=== PATIENT | male | born 1980 | race Caucasian/White ===

== ENCOUNTER 2016-04-10 21:28 | Emergency (ER) | payer MEDICAID ==
[2016-04-10] MEDS ORDERED: Ketorolac 30 MG/ML SDV IVPUSH ONE (22:44)
[2016-04-10] MEDS ORDERED: Sodium Chloride 0.9% 1,000 ML IV ONE (22:44)
[2016-04-10] MEDS ORDERED: Ondansetron 4 MG/2 ML SDV IVPUSH ONE (22:44)
--- NOTE | 2016-04-10 23:38 | EDM.PDOC ---
ED HPI GENERAL MEDICAL PROBLEM - General Chief Complaint: Neuro Symptoms/Deficits Stated Complaint: PT HAS HIGH BLOOD PRESSURE Time Seen by Provider: 04/10/16 22:40 Source of Information: Reports: Patient History Limitations: Reports: No limitations - History of Present Illness INITIAL COMMENTS - FREE TEXT/NARRATIVE: History of present illness: [35-year-old male presenting with a myriad of complaints that run from concerns of hypertension, a stroke, and seizures. Patient's dialogue is tangential and diffuse. Patient hops from one systematic complaint to another unable to consistently stay with any sort of inquiry into symptoms. Later patient indicates that he was seen and treated for a stroke, but left AMA. Patient indicates that this treatment was received after he had seizures, hypertensive crisis with subsequent stroke-type symptoms will going through drug and alcohol withdrawal.] Review of systems: As per history of present illness and below otherwise all systems reviewed and negative. Past medical history: As per history of present illness and as reviewed below otherwise noncontributory. Surgical history: As per history of present illness and as reviewed below otherwise noncontributory. Social history: No reported history of drug or alcohol abuse. Family history: As per history of present illness and as reviewed below otherwise noncontributory. Physical exam: HEENT: Atraumatic, normocephalic, pupils reactive, negative for conjunctival pallor or scleral icterus, mucous membranes moist, throat clear, neck supple, nontender, trachea midline. Lungs: Clear to auscultation, breath sounds equal bilaterally, chest nontender. Heart: S1S2, regular, negative for clicks, rubs, or JVD. Abdomen: Soft, nondistended, nontender. Negative for masses or hepatosplenomegaly. Negative for costovertebral tenderness. Pelvis: Stable nontender. Genitourinary: Deferred. Rectal: Deferred. Extremities: Atraumatic, negative for cords or calf pain. Neurovascular unremarkable. Neuro: Awake, alert, oriented to person and place. Cranial nerves II through XII unremarkable. Unable to participate in good neurological exam. Diagnostics: [CBC, CMP, EtOH, urine drug screen] Therapeutics: [IV fluid, Toradol] Impression: [Muscle pain /Chronic psych disorder-personality disorder spectrum] Plan: [Discharge] Definitive disposition and diagnosis as appropriate pending reevaluation and review of above. - Related Data Allergies Allergy/AdvReac Type Severity Reaction Status Date / Time Penicillins Allergy Hives Verified 04/10/16 22:26 Home Meds: Home Meds . [No Known Home Meds] 05/21/15 [History] Past Medical History - Past Health History Medical/Surgical History: Denies Medical/Surgical History HEENT History: Reports: Other (see below) Other HEENT History: teeth missing, broken Cardiovascular History: Reports: High cholesterol, Hypertension Respiratory History: Reports: Asthma, Other (see below) Other Respiratory History: nodes on lungs Musculoskeletal History: Reports: Fracture Neurological History: Reports: CVA Other Neuro History: Stroke last week Psychiatric History: Reports: Anxiety, Bipolar Endocrine/Metabolic History: Reports: Diabetes, type II Dermatologic History: Reports: Cellulitis - Infectious Disease History Infectious Disease History: Reports: None - Past Surgical History Musculoskeletal Surgical History: Reports: Other (see below) Other Musculoskeletal Surgeries/Procedures:: leg surgery, bilateral knee surgery Social & Family History - Family History Family Medical History: Noncontributory - Tobacco Use Smoking Status *Q: Current Every Day Smoker Years of Tobacco use: 24 Packs/Tins Daily: 0.3 Second Hand Smoke Exposure: Yes - Caffeine Use Caffeine Use: Reports: Coffee Caffeine Use Comment: 8-10cups/day - Alcohol Use Days Per Week of Alcohol Use: 7 Number of Drinks Per Day: 18 Total Drinks Per Week: 126 - Recreational Drug Use Recreational Drug Use: No Drug Use in Last 12 Months: Yes Recreational Drug Type: Reports: Methamphetamine Recreational Drug Use Frequency: Not Used In Over 6 Months ED ROS GENERAL - Review of Systems Review Of Systems: See Below (See history of present illness) ED EXAM, GENERAL - Physical Exam Exam: See Below (See history of present illness) Course - Vital Signs Last Recorded V/S: Last Vital Signs Temp 36.4 C 04/10/16 22:27 Pulse 92 04/10/16 22:27 Resp 18 04/10/16 22:27 BP 151/82 H 04/10/16 22:27 Pulse Ox 97 04/10/16 22:27 - Orders/Labs/Meds Labs: Laboratory Tests 04/10/16 04/10/16 04/10/16 Range/Units 23:30 23:50 23:50 WBC 10.43 (4.0-11.0) K/uL RBC 4.70 (4.50-5.90) M/uL Hgb 14.0 (13.0-17.0) g/dL Hct 42.1 (38.0-50.0) % MCV 89.6 (80.0-98.0) fL MCH 29.8 (27.0-32.0) pg MCHC 33.3 (31.0-37.0) g/dL RDW Std Deviation 44.5 (28.0-62.0) fl RDW Coeff of Felix 14 (11.0-15.0) % Plt Count 314 (150-400) K/uL MPV 9.20 (7.40-12.00) fL Neut % (Auto) 69.1 (48.0-80.0) % Lymph % (Auto) 18.5 (16.0-40.0) % Mcintosh % (Auto) 8.1 (0.0-15.0) % Eos % (Auto) 3.8 (0.0-7.0) % Baso % (Auto) 0.5 (0.0-1.5) % Neut # 7.2 H (1.4-5.7) K/uL Lymph # 1.9 (0.6-2.4) K/uL Mcintosh # 0.8 (0.0-0.8) K/uL Eos # 0.4 (0.0-0.7) K/uL Baso # 0.1 (0.0-0.1) K/uL Nucleated RBC % 0.0 /100WBC Nucleated RBCs # 0 K/uL Sodium 139 (136-146) mmol/L Potassium 3.9 (3.5-5.1) mmol/L Chloride 103 (98-110) mmol/L Carbon Dioxide 25 (21-31) mmol/L BUN 12 (6.0-23.0) mg/dL Creatinine 0.8 (0.6-1.5) mg/dL Est Cr Clr Drug Dosing 117.41 mL/min Estimated GFR (MDRD) > 60.0 ml/min Glucose 88 (60-110) mg/dL Calcium 9.3 (8.8-10.8) mg/dL Total Bilirubin 0.3 (0.1-1.5) mg/dL AST 20 (5-40) IU/L ALT 21 (8-54) IU/L Alkaline Phosphatase 72 (40-150) Total Protein 7.5 (6.0-8.0) g/dL Albumin 4.5 (3.5-5.0) g/dL Globulin 3.0 (2.0-3.5) g/dL Albumin/Globulin Ratio 1.5 (1.3-2.8) Urine Opiates Screen NEGATIVE (NEGATIVE) Ur Oxycodone Screen NEGATIVE (NEGATIVE) Urine Methadone Screen NEGATIVE (NEGATIVE) Ur Barbiturates Screen NEGATIVE (NEGATIVE) Ur Phencyclidine Scrn NEGATIVE (NEGATIVE) Ur Amphetamine Screen NEGATIVE (NEGATIVE) U Methamphetamines Scrn NEGATIVE (NEGATIVE) U Benzodiazepines Scrn NEGATIVE (NEGATIVE) U Cocaine Metab Screen NEGATIVE (NEGATIVE) U Marijuana (THC) Screen NEGATIVE (NEGATIVE) Ethyl Alcohol < 10.0 mg/dL Meds: Medications Discontinued Medications Generic Name Dose Route Start Last Admin Trade Name Freq PRN Reason Stop Dose Admin Sodium Chloride 1,000 mls @ 999 mls/hr 04/10/16 22:44 04/10/16 23:47 Normal Saline IV 04/10/16 23:44 999 mls/hr STAT ONE Administration Ketorolac Tromethamine 30 mg 04/10/16 22:44 04/10/16 23:49 Toradol IVPUSH 04/10/16 22:45 30 mg ONETIME ONE Administration Ondansetron HCl 8 mg 04/10/16 22:44 04/10/16 23:48 Zofran IVPUSH 04/10/16 22:45 8 mg ONETIME ONE Administration Departure - Departure Time of Disposition: 00:20 Disposition: Home, Self-Care 01 Condition: good Clinical Impression: Muscle weakness Referrals: PCP,None [Primary Care Provider] - Forms: ED Department Discharge Additional Instructions: The following information is given to patients seen in the emergency department who are being discharged to home. This information is to outline your options for follow-up care. We provide all patients seen in our emergency department with a follow-up referral. The need for follow-up, as well as the timing and circumstances, are variable depending upon the specifics of your emergency department visit. If you don't have a primary care physician on staff, we will provide you with a referral. We always advise you to contact your personal physician following an emergency department visit to inform them of the circumstance of the visit and for follow-up with them and/or the need for any referrals to a consulting specialist. The emergency department will also refer you to a specialist when appropriate. This referral assures that you have the opportunity for follow-up care with a specialist. All of these measure are taken in an effort to provide you with optimal care, which includes your follow-up. Under all circumstances we always encourage you to contact your private physician who remains a resource for coordinating your care. When calling for follow-up care, please make the office aware that this follow-up is from your recent emergency room visit. If for any reason you are refused follow-up, please contact the [facility] Emergency Department at and asked to speak to the emergency department charge nurse. Follow up with primary care provider in one to 2 today Return to ED as needed as discussed
[2016-04-11 00:32] LABS: CHLORIDE,CL 103 mmol/L (98-110); SODIUM,NA 139 mmol/L (136-146)
[2016-04-11 01:40] VITALS: BP 117/74
== END 2016-04-11 01:05 | disposition home or self-care (01) ==
LOC: MW.ED 21:28
DX: R53.1 Weakness (principal); E11.9 Type 2 diabetes mellitus without complications; F17.210 Nicotine dependence, cigarettes, uncomplicated
CPT/HCPCS: 36415; 80053; 85025; 93005; 96361; 96374; 96375; 99283; G0478; G0480; J1885; J2405; J7040; 80305; 99284

== ENCOUNTER 2016-04-11 13:37 | Emergency (ER) | payer MEDICAID ==
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
[2016-04-11] MEDS ORDERED: Nicotine 21 MG/24 Hr Patch TRDERM ONE (16:53)
[2016-04-11 18:44] VITALS: BP 131/78
== END 2016-04-11 18:30 ==
LOC: MW.ED 13:37
DX: R45.851 Suicidal ideations (principal); E78.00 Pure hypercholesterolemia, unspecified; I10 Essential (primary) hypertension; E11.9 Type 2 diabetes mellitus without complications; F17.210 Nicotine dependence, cigarettes, uncomplicated; Z88.0 Allergy status to penicillin
CPT/HCPCS: 83735; 84443; 84482; 99285; A9270; G0478; G0480; 36415; 80305

== ENCOUNTER 2016-05-16 20:13 | Emergency (ER) | payer MEDICAID ==
--- NOTE | 2016-05-16 20:43 | EDM.PDOC ---
ED HPI GENERAL MEDICAL PROBLEM - General Chief Complaint: Behavioral/Psych Stated Complaint: SUICIDAL Time Seen by Provider: 05/16/16 20:26 - History of Present Illness INITIAL COMMENTS - FREE TEXT/NARRATIVE: HISTORY AND PHYSICAL: History of present illness: Patient 35 remote history of bipolar disorder presents with a chief complaint of suicidal ideation even off his medications for several days he is cooperative and eager for admission further evaluation and treatment is agreed transfer Review of systems: As per history of present illness and below otherwise all systems reviewed and negative. Past medical history: As per history of present illness and as reviewed below otherwise noncontributory. Surgical history: As per history of present illness and as reviewed below otherwise noncontributory. Social history: No reported history of drug or alcohol abuse. Family history: As per history of present illness and as reviewed below otherwise noncontributory. Physical exam: HEENT: Atraumatic, normocephalic, pupils reactive, negative for conjunctival pallor or scleral icterus, mucous membranes moist, throat clear, neck supple, nontender, trachea midline. Lungs: Clear to auscultation, breath sounds equal bilaterally, chest nontender. Heart: S1S2, regular, negative for clicks, rubs, or JVD. Abdomen: Soft, nondistended, nontender. Negative for masses or hepatosplenomegaly. Negative for costovertebral tenderness. Pelvis: Stable nontender. Genitourinary: Deferred. Rectal: Deferred. Extremities: Atraumatic, negative for cords or calf pain. Neurovascular unremarkable. Neuro: Awake, alert, oriented. Cranial nerves II through XII unremarkable. Cerebellum unremarkable. Motor and sensory unremarkable throughout. Exam nonfocal. Diagnostics: CBC CMP urine drug screen aspirin Tylenol level EtOH EKG Therapeutics: None Impression: #1 history of bipolar disorder #2 depressive episode with suicidal ideation Definitive disposition and diagnosis as appropriate pending reevaluation and review of above. - Related Data Allergies Allergy/AdvReac Type Severity Reaction Status Date / Time Penicillins Allergy Hives Verified 04/11/16 13:54 Home Meds: Home Meds risperiDONE [Risperidone] 1 mg PO DAILY 05/16/16 [History] Past Medical History - Past Health History Medical/Surgical History: Denies Medical/Surgical History HEENT History: Reports: Other (see below) Other HEENT History: teeth missing, broken Cardiovascular History: Reports: High cholesterol, Hypertension Respiratory History: Reports: Asthma, Other (see below) Other Respiratory History: nodes on lungs Musculoskeletal History: Reports: Fracture Neurological History: Reports: CVA Other Neuro History: Stroke last week Psychiatric History: Reports: Anxiety, Bipolar Endocrine/Metabolic History: Reports: Diabetes, type II Dermatologic History: Reports: Cellulitis - Infectious Disease History Infectious Disease History: Reports: None - Past Surgical History Musculoskeletal Surgical History: Reports: Other (see below) Other Musculoskeletal Surgeries/Procedures:: leg surgery, bilateral knee surgery Social & Family History - Family History Family Medical History: Noncontributory - Tobacco Use Smoking Status *Q: Current Every Day Smoker Years of Tobacco use: 15 Packs/Tins Daily: 1 Second Hand Smoke Exposure: Yes - Caffeine Use Caffeine Use: Reports: Coffee Caffeine Use Comment: 8-10cups/day - Alcohol Use Days Per Week of Alcohol Use: 7 Number of Drinks Per Day: 18 Total Drinks Per Week: 126 - Recreational Drug Use Recreational Drug Use: Yes Drug Use in Last 12 Months: Yes Recreational Drug Type: Reports: Marijuana/Hashish Recreational Drug Use Frequency: Daily ED ROS GENERAL - Review of Systems Review Of Systems: ROS reveals no pertinent complaints other than HPI. ED EXAM, GENERAL - Physical Exam Exam: See Below Course - Vital Signs Last Recorded V/S: Last Vital Signs Temp 36.6 C 05/16/16 20:35 Pulse 84 05/16/16 20:35 Resp 18 05/16/16 20:35 BP 144/87 H 05/16/16 20:35 Pulse Ox 97 05/16/16 20:35 - Orders/Labs/Meds Orders: Active Orders 24 hr Category Date Time Status EKG Documentation Completion [RC] STAT Care 05/16/16 20:28 Active ACETAMINOPHEN [CHEM] Stat Lab 05/16/16 20:28 Ordered CBC WITH AUTO DIFF [HEME] Stat Lab 05/16/16 20:28 Ordered COMPREHENSIVE METABOLIC PN,CMP [CHEM] Stat Lab 05/16/16 20:28 Ordered DRUG SCREEN, URINE [URCHEM] Stat Lab 05/16/16 20:28 Uncollected ETHANOL BLOOD MEDICAL [CHEM] Stat Lab 05/16/16 20:28 Ordered SALICYLATE [CHEM] Stat Lab 05/16/16 20:28 Ordered Departure - Departure Time of Disposition: 20:42 Disposition: DC/Tfer to Psych Hosp/Unit 65 Condition: good Clinical Impression: Depressive disorder Forms: ED Department Discharge - My Orders Last 24 Hours: My Active Orders 05/16/16 20:28 EKG Documentation Completion [RC] STAT ACETAMINOPHEN [CHEM] Stat CBC WITH AUTO DIFF [HEME] Stat COMPREHENSIVE METABOLIC PN,CMP [CHEM] Stat DRUG SCREEN, URINE [URCHEM] Stat ETHANOL BLOOD MEDICAL [CHEM] Stat SALICYLATE [CHEM] Stat - Assessment/Plan Last 24 Hours: My Active Orders 05/16/16 20:28 EKG Documentation Completion [RC] STAT ACETAMINOPHEN [CHEM] Stat CBC WITH AUTO DIFF [HEME] Stat COMPREHENSIVE METABOLIC PN,CMP [CHEM] Stat DRUG SCREEN, URINE [URCHEM] Stat ETHANOL BLOOD MEDICAL [CHEM] Stat SALICYLATE [CHEM] Stat
[2016-05-16 21:04] LABS: CHLORIDE,CL 101 mmol/L (98-110); SODIUM,NA 137 mmol/L (136-146)
[2016-05-16 21:12] LABS: ACETAMINOPHEN < 3.0 ug/mL
[2016-05-16 21:33] VITALS: BP 139/90
== END 2016-05-16 21:56 ==
LOC: MW.ED 20:13
DX: F32.9 Major depressive disorder, single episode, unspecified (principal); F17.210 Nicotine dependence, cigarettes, uncomplicated; I10 Essential (primary) hypertension; E78.00 Pure hypercholesterolemia, unspecified; E11.9 Type 2 diabetes mellitus without complications; F41.9 Anxiety disorder, unspecified; J45.909 Unspecified asthma, uncomplicated; Z98.890 Other specified postprocedural states; Z86.73 Personal history of transient ischemic attack (TIA), and cerebral infarction without residual deficits; Z88.0 Allergy status to penicillin; Z79.899 Other long term (current) drug therapy
CPT/HCPCS: 36415; 80053; 80305; 85025; 93005; 99285; G0480; 99283

== ENCOUNTER 2016-09-10 15:14 | Emergency (ER) | payer MEDICAID ==
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
[2016-09-10 16:36] VITALS: BP 149/96
[2016-09-10 16:58] LABS: CHLORIDE,CL 95 mmol/L (98-110); SODIUM,NA 132 mmol/L (136-146)
[2016-09-10 17:25] LABS: ACETAMINOPHEN < 3.0 ug/mL
== END 2016-09-10 16:33 ==
LOC: MW.ED 15:14
DX: R45.851 Suicidal ideations (principal); E78.00 Pure hypercholesterolemia, unspecified; I10 Essential (primary) hypertension; J45.909 Unspecified asthma, uncomplicated; E11.9 Type 2 diabetes mellitus without complications; F17.210 Nicotine dependence, cigarettes, uncomplicated; Z88.0 Allergy status to penicillin; Z86.73 Personal history of transient ischemic attack (TIA), and cerebral infarction without residual deficits
CPT/HCPCS: 80053; 83735; 84443; 84481; 85025; 93005; 99285; G0480; 36415

== ENCOUNTER 2017-01-16 22:10 | Emergency (ER) | payer SELFPAY ==
[2017-01-16 22:20] VITALS: BP 147/103
--- NOTE | 2017-01-16 22:43 | EDM.PDOC ---
ED HPI GENERAL MEDICAL PROBLEM - General Chief Complaint: Gastrointestinal Problem Stated Complaint: UNK Time Seen by Provider: 01/16/17 22:30 - History of Present Illness INITIAL COMMENTS - FREE TEXT/NARRATIVE: HISTORY AND PHYSICAL: History of present illness: The patient is a 36-year-old male who has a long-standing history of alcohol use and abuse and presents with complaints of a 2-3 month history of vomiting 3 times a day with blood. The patient drinks alcohol on a daily basis and drink about a liter and a half today and says that usually the vomiting occurs when he drinks alcohol. He admits that he eats a lot of spicy foods and drinks caffeinated products but has no issues with eating food and the food does not cause him to vomit or have any pain. He denies any abdominal pain with the vomiting. He has no chest pain or shortness of breath and has had normal bowel movements which are not loose or diarrhea and they are not black or bloody. The patient has intermittently tried some [id number] medications but not on a consistent basis and has not had lightheadedness dizziness or fainting episodes. He has no extremity weakness. When I asked him about alcohol rehabilitation and his interest in pursuing that as an outpatient he is somewhat reticent and states that he is not interested at this time. Patient does not wake up in the middle the night or have vomiting first thing in the morning. He again reiterates that he mostly has the vomiting with the blood when he is drinking alcohol. He is here mostly at the insistence of family members were concerned about him and he just wants to make sure that he is "not going to ". Patient is never had endoscopy or any surgical procedures. The patient tells nursing he does have a history of hypertension and his elevated blood pressure today is not new or different neuro is concerned about it Review of systems: As per history of present illness and below otherwise all systems reviewed and negative. Past medical history: As per history of present illness and as reviewed below otherwise noncontributory. Surgical history: As per history of present illness and as reviewed below otherwise noncontributory. Social history: No reported history of drug or alcohol abuse. Family history: As per history of present illness and as reviewed below otherwise noncontributory. Physical exam: Gen.: Well-developed well-nourished man who is nontoxic and speaking clearly and easily in the ED. Vital signs of been reviewed by me. Patient moves easily in the ED without any distress HEENT: Atraumatic, normocephalic, pupils reactive, sclera is injected negative for conjunctival pallor or scleral icterus, mucous membranes moist, throat clear , neck supple, nontender, trachea midline. Lungs: Clear to auscultation, breath sounds equal bilaterally, chest nontender. Heart: S1S2, regular rhythm and slightly tachycardic rate on my evaluation and no overt murmurs Abdomen: Soft, nondistended, nontender. There is actually no tenderness rebound or guarding on palpation nor is there any tympany on percussion. Negative for masses or hepatosplenomegaly. Negative for costovertebral tenderness. Pelvis: Stable nontender. Genitourinary: Deferred. Rectal: Deferred. Extremities: Atraumatic, negative for cords or calf pain. Neurovascular unremarkable. Neuro: Awake, alert, oriented. Cranial nerves II through XII unremarkable. Cerebellum unremarkable. Motor and sensory unremarkable throughout. Exam nonfocal. The patient is not tremulous Diagnostics: CBC CMP amylase lipase INR orthostatic vitals Therapeutics: Patient was offered IV IV fluids Protonix and declines that at this time so he will be given oral Protonix and Zofran 2307: It is noted by nursing and registration the patient had eloped from the ER. We'll continue to monitor the lab tests that were ordered and contact him if they reveal any abnormalities. Impression: Hematemesis with alcohol use, history of alcohol use and abuse; patient absconded from the ER Definitive disposition and diagnosis as appropriate pending reevaluation and review of above. - Related Data Allergies Allergy/AdvReac Type Severity Reaction Status Date / Time Penicillins Allergy Hives Verified 01/16/17 22:20 Home Meds: Home Meds . [No Known Home Meds] 09/10/16 [History] Past Medical History - Past Health History Medical/Surgical History: Denies Medical/Surgical History HEENT History: Reports: Other (See Below) Other HEENT History: teeth missing, broken Cardiovascular History: Reports: High Cholesterol, Hypertension Respiratory History: Reports: Asthma, Other (See Below) Other Respiratory History: nodes on lungs Gastrointestinal History: Reports: None Genitourinary History: Reports: None Musculoskeletal History: Reports: Fracture Neurological History: Reports: CVA Other Neuro History: Stroke Psychiatric History: Reports: Anxiety, Bipolar, Schizophrenia Endocrine/Metabolic History: Reports: Diabetes, Type II Dermatologic History: Reports: Cellulitis - Infectious Disease History Infectious Disease History: Reports: None - Past Surgical History Musculoskeletal Surgical History: Reports: Other (See Below) Social & Family History - Family History Family Medical History: Noncontributory - Tobacco Use Smoking Status *Q: Current Every Day Smoker Years of Tobacco use: 5 Packs/Tins Daily: 1 Second Hand Smoke Exposure: Yes - Caffeine Use Caffeine Use: Reports: Coffee Caffeine Use Comment: 8-10cups/day - Alcohol Use Days Per Week of Alcohol Use: 7 Number of Drinks Per Day: 18 Total Drinks Per Week: 126 - Recreational Drug Use Recreational Drug Use: No Drug Use in Last 12 Months: Yes Recreational Drug Type: Reports: Marijuana/Hashish Recreational Drug Use Frequency: Daily ED ROS GENERAL - Review of Systems Review Of Systems: ROS reveals no pertinent complaints other than HPI. ED EXAM, GENERAL - Physical Exam Exam: See Below (See dictation) Course - Vital Signs Last Recorded V/S: Last Vital Signs Temp 37.3 C 01/16/17 22:18 Pulse 114 H 01/16/17 22:18 Resp 20 01/16/17 22:18 BP 147/103 H 01/16/17 22:18 Pulse Ox 97 01/16/17 22:18 Orthostatic Blood Pressure [ 123/78 Standing] Orthostatic Blood Pressure [ 133/91 Supine] - Orders/Labs/Meds Orders: Active Orders 24 hr Category Date Time Status Orthostatic Vital Signs [RC] ASDIRECTED Care 01/16/17 22:39 Active Pantoprazole [ProTONIX] Med 01/17/17 22:38 Once 40 mg PO ONETIME ONE Medication Orders Pantoprazole Sodium (Protonix) 40 mg PO ONETIME ONE Stop: 01/17/17 22:39 Last Admin: 01/16/17 22:52 Dose: 40 mg Labs: Laboratory Tests 01/16/17 01/16/17 01/16/17 Range/Units 22:50 22:50 22:50 WBC 11.18 H (4.0-11.0) K/uL RBC 4.93 (4.50-5.90) M/uL Hgb 15.9 (13.0-17.0) g/dL Hct 45.1 (38.0-50.0) % MCV 91.5 (80.0-98.0) fL MCH 32.3 H (27.0-32.0) pg MCHC 35.3 (31.0-37.0) g/dL RDW Std Deviation 46.8 (28.0-62.0) fl RDW Coeff of Felix 14 (11.0-15.0) % Plt Count 288 (150-400) K/uL MPV 9.40 (7.40-12.00) fL Neut % (Auto) 65.4 (48.0-80.0) % Lymph % (Auto) 22.8 (16.0-40.0) % Davidson % (Auto) 8.5 (0.0-15.0) % Eos % (Auto) 2.8 (0.0-7.0) % Baso % (Auto) 0.5 (0.0-1.5) % Neut # (Auto) 7.3 H (1.4-5.7) K/uL Lymph # (Auto) 2.6 H (0.6-2.4) K/uL Davidson # (Auto) 1.0 H (0.0-0.8) K/uL Eos # (Auto) 0.3 (0.0-0.7) K/uL Baso # (Auto) 0.1 (0.0-0.1) K/uL Nucleated RBC % 0.0 /100WBC Nucleated RBCs # 0 K/uL INR 1.00 (0.86-1.11) Sodium 138 (136-146) mmol/L Potassium 3.6 (3.5-5.1) mmol/L Chloride 102 (98-110) mmol/L Carbon Dioxide 21 (21-31) mmol/L BUN 9 (6.0-23.0) mg/dL Creatinine 0.8 (0.6-1.5) mg/dL Est Cr Clr Drug Dosing 128.88 mL/min Estimated GFR (MDRD) > 60.0 ml/min Glucose 86 (60-110) mg/dL Calcium 9.6 (8.8-10.8) mg/dL Total Bilirubin 0.6 (0.1-1.5) mg/dL AST 65 H (5-40) IU/L ALT 33 (8-54) IU/L Alkaline Phosphatase 85 (40-150) Total Protein 8.2 H (6.0-8.0) g/dL Albumin 4.8 (3.5-5.0) g/dL Globulin 3.4 (2.0-3.5) g/dL Albumin/Globulin Ratio 1.4 (1.3-2.8) Amylase 19 (10-90) U/L Lipase 14 (7-80) U/L Meds: Medications Generic Name Dose Route Start Last Admin Trade Name Freq PRN Reason Stop Dose Admin Pantoprazole Sodium 40 mg 01/17/17 22:38 01/16/17 22:52 Protonix PO 01/17/17 22:39 40 mg ONETIME ONE Administration Discontinued Medications Generic Name Dose Route Start Last Admin Trade Name Freq PRN Reason Stop Dose Admin Ondansetron HCl 4 mg 01/16/17 22:44 01/16/17 22:51 Zofran Odt PO 01/16/17 22:45 4 mg ONETIME ONE Administration Pantoprazole Sodium Confirm 01/16/17 22:49 01/16/17 22:52 Protonix Administered 01/16/17 22:50 Not Given Dose 40 mg .ROUTE .STK-MED ONE Departure - Departure Time of Disposition: 23:30 Disposition: Eloped 07 Condition: Good Clinical Impression: Vomiting, Alcohol abuse - Discharge Information Referrals: PCP,None [Primary Care Provider] - Forms: ED Department Discharge Additional Instructions: Patient eloped from the ED prior to receiving his test results and any discharge instructions - My Orders Last 24 Hours: My Active Orders 01/16/17 22:39 Orthostatic Vital Signs [RC] ASDIRECTED 01/17/17 22:38 Pantoprazole [ProTONIX] 40 mg PO ONETIME ONE - Assessment/Plan Last 24 Hours: My Active Orders 01/16/17 22:39 Orthostatic Vital Signs [RC] ASDIRECTED 01/17/17 22:38 Pantoprazole [ProTONIX] 40 mg PO ONETIME ONE
[2017-01-16] MEDS ORDERED: Ondansetron 4 MG Tab.DIS PO ONE (22:44)
[2017-01-16] MEDS ORDERED: Pantoprazole 40 MG Tab.CR ONE (22:49)
[2017-01-16 23:18] LABS: CHLORIDE,CL 102 mmol/L (98-110); SODIUM,NA 138 mmol/L (136-146)
[2017-01-17] MEDS ORDERED: Pantoprazole 40 MG Tab.CR PO ONE (22:38)
== END 2017-01-16 23:10 | disposition left against medical advice (07) ==
LOC: MW.ED 22:10
DX: K92.0 Hematemesis (principal); F10.10 Alcohol abuse, uncomplicated; E11.9 Type 2 diabetes mellitus without complications; F17.210 Nicotine dependence, cigarettes, uncomplicated; I10 Essential (primary) hypertension; Z88.0 Allergy status to penicillin
CPT/HCPCS: 36415; 80053; 82150; 83690; 85025; 85610; 99284; A9270

== ENCOUNTER 2017-06-19 20:43 | Emergency (ER) | payer SELFPAY ==
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
[2017-06-19 21:20] VITALS: BP 124/76
== END 2017-06-19 21:14 | disposition home or self-care (01) ==
LOC: MW.ED 20:43
DX: Z71.1 Person with feared health complaint in whom no diagnosis is made (principal); E78.00 Pure hypercholesterolemia, unspecified; I10 Essential (primary) hypertension; J45.909 Unspecified asthma, uncomplicated; E11.9 Type 2 diabetes mellitus without complications; F31.9 Bipolar disorder, unspecified; F41.9 Anxiety disorder, unspecified; Z88.0 Allergy status to penicillin
CPT/HCPCS: 99282

== ENCOUNTER 2017-06-30 20:58 | Emergency (ER) | payer SELFPAY ==
[2017-06-30] MEDS ORDERED: Rocuronium 50 MG/5 ML Vial IV ONE (20:59)
[2017-06-30] MEDS ORDERED: Diphtheria,Pertussis(Acell),Tetanus Vaccine 0.5 ML Syringe IM ONE (20:59)
[2017-06-30] MEDS ORDERED: Sodium Chloride 0.9% 1,000 ML IV SCH (21:00)
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
[2017-06-30] MEDS ORDERED: methylPREDNISolone Sodium Succinate 125 MG/2 ML SDV IVPUSH ONE (21:08)
[2017-06-30 22:08] LABS: CHLORIDE,CL 103 mmol/L (98-107); SODIUM,NA 139 mmol/L (136-148)
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
[2017-07-01 05:56] VITALS: BP 159/97
[2017-07-01] MEDS ORDERED: Lactated Ringers 1,000 ML IV ONE (06:06)
[2017-07-01] MEDS ORDERED: Sodium Chloride 0.9% 1,000 ML IV ONE (06:06)
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
== END 2017-06-30 21:33 | disposition home or self-care (01) ==
LOC: MW.ED 20:58
DX: T20.06XA Burn of unspecified degree of forehead and cheek, initial encounter (principal); T26.00XA Burn of unspecified eyelid and periocular area, initial encounter; T20.04XA Burn of unspecified degree of nose (septum), initial encounter; J70.5 Respiratory conditions due to smoke inhalation; I10 Essential (primary) hypertension; E11.9 Type 2 diabetes mellitus without complications; Z88.0 Allergy status to penicillin; X00.0XXA Exposure to flames in uncontrolled fire in building or structure, initial encounter; Y92.009 Unspecified place in unspecified non-institutional (private) residence as the place of occurrence of the external cause
CPT/HCPCS: 36415; 51702; 71045; 72170; 80053; 81001; 82550; 82553; 84484; 85025; 96360; 96361; 96374; 99291; G0480; J2930; J7040; J7120

== ENCOUNTER 2017-10-01 21:01 | Emergency (ER) | payer MEDICAID, OTHER ==
[2017-10-01] MEDS ORDERED: Aspirin 81 MG Tab.Chew PO ONE (21:02)
[2017-10-01] MEDS ORDERED: Albuterol/Ipratropium 3.0-0.5 MG/3 ML Neb Soln NEB ONE (21:02)
[2017-10-01] MEDS ORDERED: Sodium Chloride 0.9% 1,000 ML IV ONE (21:02)
--- NOTE | 2017-10-01 21:09 | EDM.PDOC ---
ED HPI GENERAL MEDICAL PROBLEM - General Chief Complaint: Cardiovascular Problem Stated Complaint: CAME BY AMBULANCE Time Seen by Provider: 10/01/17 21:03 Source of Information: Reports: Patient History Limitations: Reports: No Limitations - History of Present Illness INITIAL COMMENTS - FREE TEXT/NARRATIVE: HISTORY AND PHYSICAL: History of present illness: Patient is a 37 year old male who presents to the emergency room with complaints of midsternal chest pain and palpitations. He reports that he chronically does have chest pain, "it's been going on forever". He has drank 12 energy drinks throughout the day and "felt like I was going to " due to the palpitations. Patient does have a history of hypertension and reports he is supposed to be taking medication for this but currently is not. Denies any drug abuse. Reports he does use alcohol frequently and is a daily smoker. He denies any fever, chills, cough, diaphoresis. Denies any visual changes, headache, near syncope or syncope. Denies any abdominal pain, nausea, vomiting, diarrhea or constipation. Review of systems: As per history of present illness and below otherwise all systems reviewed and negative. Past medical history: As per history of present illness and as reviewed below otherwise noncontributory. Surgical history: As per history of present illness and as reviewed below otherwise noncontributory. Social history: No reported history of drug or alcohol abuse. Family history: As per history of present illness and as reviewed below otherwise noncontributory. Physical exam: General: Well-developed and well-nourished 35-year-old male. Alert and oriented. Nontoxic appearing, anxious, but appears in no acute distress. HEENT: Atraumatic, normocephalic, pupils equal and reactive bilaterally, negative for conjunctival pallor or scleral icterus, bilateral scleral injection , mucous membranes moist, throat clear, neck supple, nontender, trachea midline. No drooling or trismus noted. No meningeal signs Lungs: Fine expiratory wheezing noted to the anterior upper lung franco bilaterally, breath sounds equal bilaterally, chest nontender. Heart: S1S2, regular rate and rhythm without overt murmur Abdomen: Soft, nondistended, nontender. Negative for masses or hepatosplenomegaly. Negative for costovertebral tenderness. Pelvis: Stable nontender. Genitourinary: Deferred. Rectal: Deferred. Skin: Intact, warm, dry. No lesions or rashes noted. Extremities: Atraumatic, moves all per self, negative for cords or calf pain. Neurovascular unremarkable. Neuro: Awake, alert, oriented. Cranial nerves II through XII unremarkable. Cerebellum unremarkable. Motor and sensory unremarkable throughout. Exam nonfocal. Notes: States he normally drinks around 12 energy drinks daily; but today he wasn't able to drink much water while at work. Reports he has had multiple strokes in the past. No neurological deficits or weakness. NIH= 0. Labs were reviewed with the patient. He was offered admission. Patient states he would like to be discharged to home. We discussed avoiding caffeinated and stimulants. He states he wants to go home "so I can go get my beer". Denies any further questions or concerns. Diagnostics: CBC, CMP, troponin, EKG, one view chest, UA, urine drug screen Therapeutics: IV fluid, aspirin, DuoNeb Impression: Acute on chronic chest pain Plan: 1. Avoid caffeinated products (coffee, energy drinks, teas, etc...) 2. Increase your water intake. 3. Follow up with your primary care provider. Return to the ED as needed and as discussed. Definitive disposition and diagnosis as appropriate pending reevaluation and review of above. Duration: Hour(s):, Chronic Location: Reports: Chest chest area Pain Score (Numeric/FACES): 10 - Related Data Allergies Allergy/AdvReac Type Severity Reaction Status Date / Time Penicillins Allergy Hives Verified 10/01/17 21:04 Home Meds: Home Meds . [No Known Home Meds] 09/10/16 [History] QUEtiapine Fumarate [Seroquel] 50 mg PO QPM 10/01/17 [History] QUEtiapine [SEROquel] 100 mg PO QAM 10/01/17 [History] Past Medical History - Past Health History Medical/Surgical History: Denies Medical/Surgical History HEENT History: Reports: Other (See Below) Other HEENT History: teeth missing, broken Cardiovascular History: Reports: High Cholesterol, Hypertension Respiratory History: Reports: Asthma, Other (See Below) Other Respiratory History: nodes on lungs Gastrointestinal History: Reports: None Genitourinary History: Reports: None Musculoskeletal History: Reports: Fracture Neurological History: Reports: CVA Other Neuro History: Stroke last week Psychiatric History: Reports: Anxiety, Bipolar Endocrine/Metabolic History: Reports: Diabetes, Type II Hematologic History: Reports: None Immunologic History: Reports: None Oncologic (Cancer) History: Reports: None Dermatologic History: Reports: Cellulitis - Infectious Disease History Infectious Disease History: Reports: None - Past Surgical History Musculoskeletal Surgical History: Reports: Other (See Below) Social & Family History - Family History Family Medical History: Noncontributory - Caffeine Use Caffeine Use: Reports: Coffee Caffeine Use Comment: 8-10cups/day ED ROS GENERAL - Review of Systems Review Of Systems: ROS reveals no pertinent complaints other than HPI. ED EXAM, GENERAL - Physical Exam Exam: See Below (See dictation) Course - Vital Signs Last Recorded V/S: Last Vital Signs Temp 97.5 F 10/01/17 21:05 Pulse 114 H 10/01/17 21:05 Resp 24 H 10/01/17 21:05 BP 158/107 H 10/01/17 21:05 Pulse Ox 96 10/01/17 21:05 - Orders/Labs/Meds Orders: Active Orders 24 hr Category Date Time Status EKG Documentation Completion [RC] STAT Care 10/01/17 21:02 Active RT Aerosol Therapy [RC] ASDIRECTED Care 10/01/17 21:03 Active Chest 1V Frontal [CR] Stat Exams 10/01/17 21:02 Taken DRUG SCREEN, URINE [URCHEM] Stat Lab 10/01/17 21:02 Ordered UA W/MICROSCOPIC [URIN] Stat Lab 10/01/17 21:20 Ordered Labs: Laboratory Tests 10/01/17 10/01/17 10/01/17 Range/Units 21:02 21:09 21:09 WBC 10.35 (4.0-11.0) K/uL RBC 4.99 (4.50-5.90) M/uL Hgb 16.1 (13.0-17.0) g/dL Hct 46.5 (38.0-50.0) % MCV 93.2 (80.0-98.0) fL MCH 32.3 H (27.0-32.0) pg MCHC 34.6 (31.0-37.0) g/dL RDW Std Deviation 47.8 (28.0-62.0) fl RDW Coeff of Felix 14 (11.0-15.0) % Plt Count 264 (150-400) K/uL MPV 9.10 (7.40-12.00) fL Neut % (Auto) 72.2 (48.0-80.0) % Lymph % (Auto) 14.5 L (16.0-40.0) % Dundy % (Auto) 12.7 (0.0-15.0) % Eos % (Auto) 0.2 (0.0-7.0) % Baso % (Auto) 0.4 (0.0-1.5) % Neut # (Auto) 7.5 H (1.4-5.7) K/uL Lymph # (Auto) 1.5 (0.6-2.4) K/uL Dundy # (Auto) 1.3 H (0.0-0.8) K/uL Eos # (Auto) 0.0 (0.0-0.7) K/uL Baso # (Auto) 0.0 (0.0-0.1) K/uL Nucleated RBC % 0.0 /100WBC Nucleated RBCs # 0 K/uL Sodium 133 L (136-148) mmol/L Potassium 3.9 (3.5-5.1) mmol/L Chloride 96 L (98-107) mmol/L Carbon Dioxide 23.7 (21.0-32.0) mmol/L BUN 16 (7.0-18.0) mg/dL Creatinine 0.9 (0.8-1.3) mg/dL Est Cr Clr Drug Dosing 113.47 mL/min Estimated GFR (MDRD) > 60.0 ml/min Glucose 84 (74-106) mg/dL Calcium 9.7 (8.5-10.1) mg/dL Total Bilirubin 0.9 (0.2-1.0) mg/dL AST 34 (15-37) IU/L ALT 27 (14-63) IU/L Alkaline Phosphatase 76 (46-116) U/L Troponin I < 0.050 (0.000-0.056) ng/mL Total Protein 7.6 (6.4-8.2) g/dL Albumin 4.3 (3.4-5.0) g/dL Globulin 3.3 (2.0-3.5) g/dL Albumin/Globulin Ratio 1.3 (1.3-2.8) Urine Color Urine Appearance Urine pH (5.0-8.0) Ur Specific Thorndike (1.001-1.035) Urine Protein (NEGATIVE) mg/dL Urine Glucose (UA) (NEGATIVE) mg/dL Urine Ketones (NEGATIVE) mg/dL Urine Occult Blood (NEGATIVE) Urine Nitrite (NEGATIVE) Urine Bilirubin (NEGATIVE) Urine Urobilinogen (<2.0) EU/dL Ur Leukocyte Esterase (NEGATIVE) Urine RBC (0-2/HPF) Urine WBC (0-5/HPF) Ur Epithelial Cells (NONE-FEW) Urine Bacteria (NEGATIVE) Urine Mucus (NONE-MOD) Urine Opiates Screen NEGATIVE (NEGATIVE) Ur Oxycodone Screen NEGATIVE (NEGATIVE) Urine Methadone Screen NEGATIVE (NEGATIVE) Ur Barbiturates Screen NEGATIVE (NEGATIVE) Ur Phencyclidine Scrn NEGATIVE (NEGATIVE) Ur Amphetamine Screen POSITIVE (NEGATIVE) U Methamphetamines Scrn NEGATIVE (NEGATIVE) U Benzodiazepines Scrn NEGATIVE (NEGATIVE) U Cocaine Metab Screen NEGATIVE (NEGATIVE) U Marijuana (THC) Screen NEGATIVE (NEGATIVE) 10/01/17 Range/Units 21:20 WBC (4.0-11.0) K/uL RBC (4.50-5.90) M/uL Hgb (13.0-17.0) g/dL Hct (38.0-50.0) % MCV (80.0-98.0) fL MCH (27.0-32.0) pg MCHC (31.0-37.0) g/dL RDW Std Deviation (28.0-62.0) fl RDW Coeff of Felix (11.0-15.0) % Plt Count (150-400) K/uL MPV (7.40-12.00) fL Neut % (Auto) (48.0-80.0) % Lymph % (Auto) (16.0-40.0) % Dundy % (Auto) (0.0-15.0) % Eos % (Auto) (0.0-7.0) % Baso % (Auto) (0.0-1.5) % Neut # (Auto) (1.4-5.7) K/uL Lymph # (Auto) (0.6-2.4) K/uL Dundy # (Auto) (0.0-0.8) K/uL Eos # (Auto) (0.0-0.7) K/uL Baso # (Auto) (0.0-0.1) K/uL Nucleated RBC % /100WBC Nucleated RBCs # K/uL Sodium (136-148) mmol/L Potassium (3.5-5.1) mmol/L Chloride (98-107) mmol/L Carbon Dioxide (21.0-32.0) mmol/L BUN (7.0-18.0) mg/dL Creatinine (0.8-1.3) mg/dL Est Cr Clr Drug Dosing mL/min Estimated GFR (MDRD) ml/min Glucose (74-106) mg/dL Calcium (8.5-10.1) mg/dL Total Bilirubin (0.2-1.0) mg/dL AST (15-37) IU/L ALT (14-63) IU/L Alkaline Phosphatase (46-116) U/L Troponin I (0.000-0.056) ng/mL Total Protein (6.4-8.2) g/dL Albumin (3.4-5.0) g/dL Globulin (2.0-3.5) g/dL Albumin/Globulin Ratio (1.3-2.8) Urine Color YELLOW Urine Appearance CLEAR Urine pH 6.0 (5.0-8.0) Ur Specific Thorndike 1.010 (1.001-1.035) Urine Protein NEGATIVE (NEGATIVE) mg/dL Urine Glucose (UA) NEGATIVE (NEGATIVE) mg/dL Urine Ketones 15 H (NEGATIVE) mg/dL Urine Occult Blood NEGATIVE (NEGATIVE) Urine Nitrite NEGATIVE (NEGATIVE) Urine Bilirubin NEGATIVE (NEGATIVE) Urine Urobilinogen 0.2 (<2.0) EU/dL Ur Leukocyte Esterase TRACE (NEGATIVE) Urine RBC 0-1 (0-2/HPF) Urine WBC 3-8 (0-5/HPF) Ur Epithelial Cells RARE (NONE-FEW) Urine Bacteria FEW (NEGATIVE) Urine Mucus FEW (NONE-MOD) Urine Opiates Screen (NEGATIVE) Ur Oxycodone Screen (NEGATIVE) Urine Methadone Screen (NEGATIVE) Ur Barbiturates Screen (NEGATIVE) Ur Phencyclidine Scrn (NEGATIVE) Ur Amphetamine Screen (NEGATIVE) U Methamphetamines Scrn (NEGATIVE) U Benzodiazepines Scrn (NEGATIVE) U Cocaine Metab Screen (NEGATIVE) U Marijuana (THC) Screen (NEGATIVE) Meds: Medications Discontinued Medications Generic Name Dose Route Start Last Admin Trade Name Bradly PRN Reason Stop Dose Admin Albuterol/Ipratropium 3 ml 10/01/17 21:02 10/01/17 21:12 Duoneb 3.0-0.5 Mg/3 Ml NEB 10/01/17 21:03 3 ml ONETIME ONE Administration Aspirin 324 mg 10/01/17 21:02 10/01/17 21:24 Aspirin PO 10/01/17 21:03 324 mg ONETIME ONE Administration Sodium Chloride 1,000 mls @ 999 mls/hr 10/01/17 21:02 10/01/17 21:24 Normal Saline IV 10/01/17 22:02 999 mls/hr STAT ONE Administration Departure - Departure Time of Disposition: 22:03 Disposition: Home, Self-Care 01 Clinical Impression: Chest pain Qualifiers: Chest pain type: unspecified Qualified Code(s): R07.9 - Chest pain, unspecified Forms: ED Department Discharge Additional Instructions: General dischargeThe following information is given to patients seen in the emergency department who are being discharged to home. This information is to outline your options for follow-up care. We provide all patients seen in our emergency department with a follow-up referral. The need for follow-up, as well as the timing and circumstances, are variable depending upon the specifics of your emergency department visit. If you don't have a primary care physician on staff, we will provide you with a referral. We always advise you to contact your personal physician following an emergency department visit to inform them of the circumstance of the visit and for follow-up with them and/or the need for any referrals to a consulting specialist. The emergency department will also refer you to a specialist when appropriate. This referral assures that you have the opportunity for follow-up care with a specialist. All of these measure are taken in an effort to provide you with optimal care, which includes your follow-up. Under all circumstances we always encourage you to contact your private physician who remains a resource for coordinating your care. When calling for follow-up care, please make the office aware that this follow-up is from your recent emergency room visit. If for any reason you are refused follow-up, please contact the [facility] Emergency Department at and asked to speak to the emergency department charge nurse. [facility] [address] [place] [id number] 1. Avoid caffeinated products (coffee, energy drinks, teas, etc...) 2. Increase your water intake. 3. Follow up with your primary care provider. Return to the ED as needed and as discussed. . - My Orders Last 24 Hours: My Active Orders 10/01/17 21:02 EKG Documentation Completion [RC] STAT Chest 1V Frontal [CR] Stat DRUG SCREEN, URINE [URCHEM] Stat 10/01/17 21:03 RT Aerosol Therapy [RC] ASDIRECTED 10/01/17 21:20 UA W/MICROSCOPIC [URIN] Stat - Assessment/Plan Last 24 Hours: My Active Orders 10/01/17 21:02 EKG Documentation Completion [RC] STAT Chest 1V Frontal [CR] Stat DRUG SCREEN, URINE [URCHEM] Stat 10/01/17 21:03 RT Aerosol Therapy [RC] ASDIRECTED 10/01/17 21:20 UA W/MICROSCOPIC [URIN] Stat
[2017-10-01 21:26] VITALS: BP 158/107
[2017-10-01 21:37] LABS: CHLORIDE,CL 96 mmol/L (98-107); SODIUM,NA 133 mmol/L (136-148)
--- NOTE | 2017-10-02 10:11 | CR ---
EXAM DATE: 10/01/17 PATIENT'S AGE: 37 Patient: RANDY PARK Facility: [place], [place] Site . Site : 1980 Study: XRay Chest [id number] 9:38:49 PM Ordering Physician: Doctor Blanchard Final Report: Indication: Chest pain Technique: Chest 1 view Comparison: June 30, 2017 Findings/Impression: Cardiovascular and mediastinum: Heart size and vasculature are normal in caliber and appearance. Mediastinum is within normal limits. Lungs and pleural space: Lungs are clear. No sign of infiltrate or mass. No sign of pleural effusion. No pneumothorax. Bones and soft tissues: No significant findings. Dictated by Keila Galaviz MD @ Oct 01 2017 10:03PM (Electronic Signature) Report Signed by Proxy. MURTAZA
== END 2017-10-01 22:12 | disposition home or self-care (01) ==
LOC: MW.ED 21:01
DX: R07.9 Chest pain, unspecified (principal); I10 Essential (primary) hypertension; E11.9 Type 2 diabetes mellitus without complications; Z88.0 Allergy status to penicillin
CPT/HCPCS: 36415; 71045; 80053; 80305; 81001; 84484; 85025; 93005; 94640; 96360; 99285; A9270; J7040; 99283; J7620-GY

== ENCOUNTER 2017-11-17 20:08 | Emergency (ER) | payer SELFPAY ==
--- NOTE | 2017-11-17 20:34 | EDM.PDOCBH ---
ED HPI GENERAL MEDICAL PROBLEM - General Chief Complaint: Behavioral/Psych Stated Complaint: DEPRESION Time Seen by Provider: 11/17/17 20:30 Source of Information: Reports: Patient History Limitations: Reports: No Limitations - History of Present Illness INITIAL COMMENTS - FREE TEXT/NARRATIVE: HISTORY AND PHYSICAL: History of present illness: Patient is a 37-year-old male with history of depression, bipolar disorder, and schizophrenia here with suicidal thoughts. He states he has had these thoughts for "a while." He has a history of previous suicidal attempts including hanging , cutting, and jumping in front of a truck. At this time, patient denies having a plan. Although patient did tell my nursing staff that he had been at the bar this afternoon and after having a few beers walk to the train station where he was planning to jump in front of the train when the lady had stopped him and advised him to come to the ER. Patient states he is willing to seek help for his illness and agreeable to be transferred. Patient denies any illicit drug use and denies taking any OTC medications today. Patient reported to me that he is taking his seroquel but told Review of systems: As per history of present illness and below otherwise all systems reviewed and negative. Past medical history: As per history of present illness and as reviewed below otherwise noncontributory. Surgical history: As per history of present illness and as reviewed below otherwise noncontributory. Social history: No reported history of drug or alcohol abuse. Family history: As per history of present illness and as reviewed below otherwise noncontributory. Physical exam: General: Patient figiditing and not making eye contact but in no acute distress and nontoxic appearing HEENT: Atraumatic, normocephalic, pupils reactive, negative for conjunctival pallor or scleral icterus, mucous membranes moist, throat clear, neck supple, nontender, trachea midline. No meningeal signs. Lungs: Apical wheezing bilaterally, breath sounds equal bilaterally, chest nontender. Heart: S1S2, regular, negative for clicks, rubs, or overt murmur. Abdomen: Soft, nondistended, nontender. Negative for masses or hepatosplenomegaly. Negative for costovertebral tenderness. Pelvis: Stable nontender. Genitourinary: Deferred. Rectal: Deferred. Extremities: Atraumatic, negative for cords or calf pain. Neurovascular unremarkable. Neuro: Awake, alert, oriented. Cranial nerves II through XII unremarkable. Cerebellum unremarkable. Motor and sensory unremarkable throughout. Exam nonfocal. Notes: Diagnostics: CBC, CMP, TSH, Mg2+, UA, UDS Therapeutics: None Prescriptions: Impression: Suicidal ideation with plan Plan: Discussed with Dr. Rojas at [facility], patient will be transferred for inpatient care. Definitive disposition and diagnosis as appropriate pending reevaluation and review of above. - Related Data Allergies Allergy/AdvReac Type Severity Reaction Status Date / Time Penicillins Allergy Hives Verified 11/17/17 20:24 Home Meds: Home Meds QUEtiapine Fumarate [Seroquel] 50 mg PO QPM 10/01/17 [History] QUEtiapine [SEROquel] 100 mg PO QAM 10/01/17 [History] Past Medical History - Past Health History Medical/Surgical History: Denies Medical/Surgical History HEENT History: Reports: Other (See Below) Other HEENT History: teeth missing, broken Cardiovascular History: Reports: High Cholesterol, Hypertension Respiratory History: Reports: Asthma, Other (See Below) Other Respiratory History: nodes on lungs Gastrointestinal History: Reports: None Genitourinary History: Reports: None Musculoskeletal History: Reports: Fracture Neurological History: Reports: CVA Other Neuro History: Stroke last week Psychiatric History: Reports: Anxiety, Bipolar Endocrine/Metabolic History: Reports: Diabetes, Type II Hematologic History: Reports: None Immunologic History: Reports: None Oncologic (Cancer) History: Reports: None Dermatologic History: Reports: Cellulitis - Infectious Disease History Infectious Disease History: Reports: None - Past Surgical History Musculoskeletal Surgical History: Reports: Other (See Below) Social & Family History - Family History Family Medical History: Noncontributory - Caffeine Use Caffeine Use: Reports: Coffee Caffeine Use Comment: 8-10cups/day ED ROS GENERAL - Review of Systems Review Of Systems: ROS reveals no pertinent complaints other than HPI. ED EXAM, BEHAVIORAL HEALTH - Physical Exam Exam: See Below (see dictation) COURSE, BEHAVIORAL HEALTH COMP - Course Vital Signs: Last Vital Signs Temp 37.2 C 11/17/17 20:26 Pulse 111 H 11/17/17 20:26 Resp 18 11/17/17 20:26 BP 138/96 H 11/17/17 20:26 Pulse Ox 96 11/17/17 20:26 Orders, Labs, Meds: Active Orders 24 hr Category Date Time Status EKG Documentation Completion [RC] STAT Care 11/17/17 20:31 Active COMPREHENSIVE METABOLIC PN,CMP [CHEM] Stat Lab 11/17/17 20:37 Received DRUG SCREEN, URINE [URCHEM] Stat Lab 11/17/17 20:31 Ordered ETHANOL BLOOD MEDICAL [CHEM] Stat Lab 11/17/17 20:37 Received MAGNESIUM [CHEM] Stat Lab 11/17/17 20:37 Received TSH [CHEM] Stat Lab 11/17/17 20:37 Received UA W/MICROSCOPIC [URIN] Stat Lab 11/17/17 20:31 Ordered Sodium Chloride 0.9% [Saline Flush] Med 11/17/17 20:38 Active 10 ml FLUSH ASDIRECTED PRN Sodium Chloride 0.9% [Saline Flush] Med 11/17/17 20:38 Active 2.5 ml FLUSH ASDIRECTED PRN Saline Lock Insert [OM.PC] Stat Oth 11/17/17 20:38 Ordered Medication Orders Sodium Chloride (Saline Flush) 10 ml FLUSH ASDIRECTED PRN PRN Reason: Keep Vein Open Sodium Chloride (Saline Flush) 2.5 ml FLUSH ASDIRECTED PRN PRN Reason: Keep Vein Open Laboratory Tests 11/17/17 Range/Units 20:37 WBC 8.51 (4.0-11.0) K/uL RBC 4.77 (4.50-5.90) M/uL Hgb 15.2 (13.0-17.0) g/dL Hct 43.3 (38.0-50.0) % MCV 90.8 (80.0-98.0) fL MCH 31.9 (27.0-32.0) pg MCHC 35.1 (31.0-37.0) g/dL RDW Std Deviation 45.7 (28.0-62.0) fl RDW Coeff of Felix 14 (11.0-15.0) % Plt Count 305 (150-400) K/uL MPV 9.60 (7.40-12.00) fL Neut % (Auto) 66.3 (48.0-80.0) % Lymph % (Auto) 24.7 (16.0-40.0) % Trigg % (Auto) 6.7 (0.0-15.0) % Eos % (Auto) 1.8 (0.0-7.0) % Baso % (Auto) 0.5 (0.0-1.5) % Neut # (Auto) 5.7 (1.4-5.7) K/uL Lymph # (Auto) 2.1 (0.6-2.4) K/uL Trigg # (Auto) 0.6 (0.0-0.8) K/uL Eos # (Auto) 0.2 (0.0-0.7) K/uL Baso # (Auto) 0.0 (0.0-0.1) K/uL Nucleated RBC % 0.0 /100WBC Nucleated RBCs # 0 K/uL Medications Generic Name Dose Route Start Last Admin Trade Name Freq PRN Reason Stop Dose Admin Sodium Chloride 10 ml 11/17/17 20:38 Saline Flush FLUSH ASDIRECTED PRN Keep Vein Open Sodium Chloride 2.5 ml 11/17/17 20:38 Saline Flush FLUSH ASDIRECTED PRN Keep Vein Open Departure - Departure Time of Disposition: 21:15 Disposition: DC/Tfer to Psych Hosp/Unit [facility] Condition: Good Clinical Impression: Suicidal intent - Discharge Information Referrals: PCP,None [Primary Care Provider] - Forms: ED Department Discharge - My Orders Last 24 Hours: My Active Orders 11/17/17 20:31 EKG Documentation Completion [RC] STAT DRUG SCREEN, URINE [URCHEM] Stat UA W/MICROSCOPIC [URIN] Stat 11/17/17 20:37 COMPREHENSIVE METABOLIC PN,CMP [CHEM] Stat ETHANOL BLOOD MEDICAL [CHEM] Stat MAGNESIUM [CHEM] Stat TSH [CHEM] Stat 11/17/17 20:38 Sodium Chloride 0.9% [Saline Flush] 10 ml FLUSH ASDIRECTED PRN Sodium Chloride 0.9% [Saline Flush] 2.5 ml FLUSH ASDIRECTED PRN Saline Lock Insert [OM.PC] Stat - Assessment/Plan Last 24 Hours: My Active Orders 11/17/17 20:31 EKG Documentation Completion [RC] STAT DRUG SCREEN, URINE [URCHEM] Stat UA W/MICROSCOPIC [URIN] Stat 11/17/17 20:37 COMPREHENSIVE METABOLIC PN,CMP [CHEM] Stat ETHANOL BLOOD MEDICAL [CHEM] Stat MAGNESIUM [CHEM] Stat TSH [CHEM] Stat 11/17/17 20:38 Sodium Chloride 0.9% [Saline Flush] 10 ml FLUSH ASDIRECTED PRN Sodium Chloride 0.9% [Saline Flush] 2.5 ml FLUSH ASDIRECTED PRN Saline Lock Insert [OM.PC] Stat
[2017-11-17] MEDS ORDERED: Sodium Chloride 0.9% 10 ML Syringe FLUSH PRN (20:38)
[2017-11-17] MEDS ORDERED: Sodium Chloride 0.9% 2.5 ML Syringe FLUSH PRN (20:38)
[2017-11-17 21:12] LABS: CHLORIDE,CL 94 mmol/L (98-107); SODIUM,NA 132 mmol/L (136-148)
[2017-11-17 21:20] VITALS: BP 130/78
== END 2017-11-17 22:20 ==
LOC: MW.ED 20:08
DX: R45.851 Suicidal ideations (principal); I10 Essential (primary) hypertension; E11.9 Type 2 diabetes mellitus without complications; Z88.0 Allergy status to penicillin
CPT/HCPCS: 36415; 80053; 83735; 84443; 85025; 93005; 99285; G0480; 99283

== ENCOUNTER 2018-04-07 11:19 | Emergency (ER) | payer MEDICAID ==
--- NOTE | 2018-04-07 12:02 | EDM.PDOC ---
ED HPI GENERAL MEDICAL PROBLEM - General Chief Complaint: ENT Problem Stated Complaint: SORE THROAT Time Seen by Provider: 04/07/18 11:45 Source of Information: Reports: Patient History Limitations: Reports: No Limitations - History of Present Illness INITIAL COMMENTS - FREE TEXT/NARRATIVE: HISTORY AND PHYSICAL: History of present illness: Patient is a 37-year-old male well known to the ED with complaint of sore throat x 2 weeks. He reports ear pain, nasal congestion, subjective fevers, mild cough. Denies nausea, vomiting, diarrhea, chest pain, SOB, difficulty swallowing or breathing. He is taking OTC theraflu for his symptoms. Review of systems: As per history of present illness and below otherwise all systems reviewed and negative. Past medical history: As per history of present illness and as reviewed below otherwise noncontributory. Surgical history: As per history of present illness and as reviewed below otherwise noncontributory. Social history: No reported history of drug or alcohol abuse. Family history: As per history of present illness and as reviewed below otherwise noncontributory. Physical exam: General: Patient sitting comfortably in no acute distress and nontoxic appearing HEENT: Oropharynx is erythematous without exudate. Tonsils not visualized. Maxillary sinus tenderness to palpation. TMs clear bilaterally. Atraumatic, normocephalic, pupils reactive, negative for conjunctival pallor or scleral icterus, mucous membranes moist, throat clear, neck supple, nontender, trachea midline. No meningeal signs. Lungs: Clear to auscultation, breath sounds equal bilaterally, chest nontender. Heart: S1S2, regular, negative for clicks, rubs, or overt murmur. Abdomen: Soft, nondistended, nontender. Negative for masses or hepatosplenomegaly. Negative for costovertebral tenderness. Pelvis: Stable nontender. Genitourinary: Deferred. Rectal: Deferred. Extremities: Atraumatic, negative for cords or calf pain. Neurovascular unremarkable. Neuro: Awake, alert, oriented. Cranial nerves II through XII unremarkable. Cerebellum unremarkable. Motor and sensory unremarkable throughout. Exam nonfocal. Notes: Diagnostics: Rapid strep Therapeutics: None Prescriptions: Augmentin Impression: Sinusitis Plan: 1. Take antibiotic as instructed 2. Follow up with primary care provider 3. Return to ED as needed as discussed Definitive disposition and diagnosis as appropriate pending reevaluation and review of above. throat Pain Score (Numeric/FACES): 10 - Related Data Allergies Allergy/AdvReac Type Severity Reaction Status Date / Time Penicillins Allergy Hives Verified 01/20/18 15:05 Home Meds: Home Meds . [No Known Home Meds] 01/20/18 [History] Past Medical History - Past Health History Medical/Surgical History: Denies Medical/Surgical History HEENT History: Reports: Other (See Below) Other HEENT History: teeth missing, broken Cardiovascular History: Reports: High Cholesterol, Hypertension Respiratory History: Reports: Asthma, Other (See Below) Other Respiratory History: nodes on lungs Gastrointestinal History: Reports: None Genitourinary History: Reports: None Musculoskeletal History: Reports: Fracture Neurological History: Reports: CVA Other Neuro History: Stroke last week Psychiatric History: Reports: Anxiety, Bipolar Endocrine/Metabolic History: Reports: Diabetes, Type II Hematologic History: Reports: None Immunologic History: Reports: None Oncologic (Cancer) History: Reports: None Dermatologic History: Reports: Cellulitis - Infectious Disease History Infectious Disease History: Reports: None - Past Surgical History Head Surgeries/Procedures: Reports: None Musculoskeletal Surgical History: Reports: Other (See Below) Social & Family History - Family History Family Medical History: Noncontributory - Tobacco Use Smoking Status *Q: Current Every Day Smoker Years of Tobacco use: 26 Packs/Tins Daily: 0.5 - Caffeine Use Caffeine Use: Reports: Coffee Caffeine Use Comment: 8-10cups/day - Recreational Drug Use Recreational Drug Use: No ED ROS ENT - Review of Systems Review Of Systems: ROS reveals no pertinent complaints other than HPI. ED EXAM, ENT - Physical Exam Exam: See Below (see dictation) Course - Vital Signs Last Recorded V/S: Last Vital Signs Temp 97.5 F 04/07/18 11:31 Pulse 100 04/07/18 11:31 Resp 18 04/07/18 11:31 BP 145/100 H 04/07/18 11:31 Pulse Ox 95 04/07/18 11:31 - Orders/Labs/Meds Orders: Active Orders 24 hr Category Date Time Status CULTURE STREP A CONFIRMATION [RM] Stat Lab 04/07/18 11:42 Results STREP SCRN A RAPID W CULT CONF [RM] Stat Lab 04/07/18 11:42 Results Departure - Departure Time of Disposition: 12:06 Disposition: Home, Self-Care 01 Condition: Good Clinical Impression: Sinusitis - Discharge Information Referrals: PCP,None [Primary Care Provider] - Forms: ED Department Discharge Additional Instructions: The following information is given to patients seen in the emergency department who are being discharged to home. This information is to outline your options for follow-up care. We provide all patients seen in our emergency department with a follow-up referral. The need for follow-up, as well as the timing and circumstances, are variable depending upon the specifics of your emergency department visit. If you don't have a primary care physician on staff, we will provide you with a referral. We always advise you to contact your personal physician following an emergency department visit to inform them of the circumstance of the visit and for follow-up with them and/or the need for any referrals to a consulting specialist. The emergency department will also refer you to a specialist when appropriate. This referral assures that you have the opportunity for follow-up care with a specialist. All of these measure are taken in an effort to provide you with optimal care, which includes your follow-up. Under all circumstances we always encourage you to contact your private physician who remains a resource for coordinating your care. When calling for follow-up care, please make the office aware that this follow-up is from your recent emergency room visit. If for any reason you are refused follow-up, please contact the [facility] Emergency Department at and asked to speak to the emergency department charge nurse. [facility] [address] [place] [id number] [address] 1. Take antibiotic as instructed 2. Follow up with primary care provider 3. Return to ED as needed as discussed - My Orders Last 24 Hours: My Active Orders 04/07/18 11:42 CULTURE STREP A CONFIRMATION [RM] Stat STREP SCRN A RAPID W CULT CONF [RM] Stat - Assessment/Plan Last 24 Hours: My Active Orders 04/07/18 11:42 CULTURE STREP A CONFIRMATION [RM] Stat STREP SCRN A RAPID W CULT CONF [RM] Stat
[2018-04-07 12:33] VITALS: BP 149/96
== END 2018-04-07 12:33 | disposition home or self-care (01) ==
LOC: MW.ED 11:19
DX: J32.9 Chronic sinusitis, unspecified (principal); I10 Essential (primary) hypertension; E11.9 Type 2 diabetes mellitus without complications; E78.00 Pure hypercholesterolemia, unspecified; Z88.0 Allergy status to penicillin; F17.210 Nicotine dependence, cigarettes, uncomplicated
CPT/HCPCS: 87081; 87880-QW; 99283

== ENCOUNTER 2018-04-28 15:45 | Emergency (ER) | payer MEDICAID ==
[2018-04-28] MEDS ORDERED: Ketorolac 60 MG/2 ML SDV IM ONE (16:00)
[2018-04-28 16:02] VITALS: BP 148/101
--- NOTE | 2018-04-28 16:06 | EDM.PDOC ---
ED HPI GENERAL MEDICAL PROBLEM - General Chief Complaint: Skin Complaint Stated Complaint: BLOOD CLOT Time Seen by Provider: 04/28/18 15:47 Source of Information: Reports: Patient History Limitations: Reports: No Limitations - History of Present Illness INITIAL COMMENTS - FREE TEXT/NARRATIVE: HISTORY AND PHYSICAL: History of present illness: Patient is a 37 year old male who presents to the emergency room today with complaints of pain to the right mid thigh. He states he has been breaking wooden boards across his leg over the past month and has had pain. He was told by a friend that he should be concerned of having a blood clot deficits painful there. He denies any fever, chills, chest pain, shortness of breath or cough. Denies any abdominal pain, nausea, vomiting, diarrhea, constipation or dysuria. He has been eating and drinking appropriately. Review of systems: As per history of present illness and below otherwise all systems reviewed and negative. Past medical history: As per history of present illness and as reviewed below otherwise noncontributory. Surgical history: As per history of present illness and as reviewed below otherwise noncontributory. Social history: See social history for further information Family history: As per history of present illness and as reviewed below otherwise noncontributory. Physical exam: General: Well-developed and well-nourished 37-year-old male. Alert and oriented. Nontoxic appearing and in no acute distress. HEENT: Atraumatic, normocephalic, pupils equal and reactive bilaterally, negative for conjunctival pallor or scleral icterus, mucous membranes moist, poor dental hygiene, continuously grinds his teeth, trachea midline. No drooling or trismus noted. No meningeal signs. No hot potato voice noted. Lungs: Clear to auscultation, breath sounds equal bilaterally, chest nontender. Heart: S1S2, regular rate and rhythm without overt murmur Abdomen: Soft, nondistended, nontender. Negative for masses or hepatosplenomegaly. Negative for costovertebral tenderness. Pelvis: Stable nontender. Genitourinary: Deferred. Rectal: Deferred. Skin: Intact, warm, dry. No lesions or rashes noted. Extremities: Moves all extremities per self without difficulty or deficits, no tenderness with palpation over the femur, no soft tissue swelling or erythema noted, negative for cords or calf pain. Neurovascular unremarkable. Neuro: Awake, alert, oriented. Cranial nerves II through XII unremarkable. Cerebellum unremarkable. Motor and sensory unremarkable throughout. Exam nonfocal. Notes: Patient states he has pain when he flexes the quadricep muscle on the right. There is no soft tissue swelling or erythema. Patient has no indication for needing evaluation of a blood clot at this time. We'll do an x-ray give him Toradol for pain management. X-ray shows a 12 cm area of calcification along the medial femoral diaphysis which could represent myositis ossificans.This was not seen on the prior study from 02/09/2016. No acute osseous findings are seen. Upon going in to talk with the patient about the x-ray findings he appears to have eloped. Nursing staff has attempted to locate and contact the patient unsuccessfully. Diagnostics: Femur x-ray Therapeutics: Toradol Prescription: None Impression: Muscle strain Thigh pain, right Elopement Definitive disposition and diagnosis as appropriate pending reevaluation and review of above. Right Thigh Pain Score (Numeric/FACES): 9 - Related Data Allergies Allergy/AdvReac Type Severity Reaction Status Date / Time Penicillins Allergy Hives Verified 04/28/18 15:59 Home Meds: Home Meds . [No Known Home Meds] 01/20/18 [History] Past Medical History - Past Health History Medical/Surgical History: Denies Medical/Surgical History HEENT History: Reports: Other (See Below) Other HEENT History: teeth missing, broken Cardiovascular History: Reports: High Cholesterol, Hypertension Respiratory History: Reports: Asthma, Other (See Below) Other Respiratory History: nodes on lungs Gastrointestinal History: Reports: None Genitourinary History: Reports: None Musculoskeletal History: Reports: Fracture Neurological History: Reports: CVA Other Neuro History: Stroke last week Psychiatric History: Reports: Anxiety, Bipolar Endocrine/Metabolic History: Reports: Diabetes, Type II Hematologic History: Reports: None Immunologic History: Reports: None Oncologic (Cancer) History: Reports: None Dermatologic History: Reports: Cellulitis - Infectious Disease History Infectious Disease History: Reports: None - Past Surgical History Head Surgeries/Procedures: Reports: None Musculoskeletal Surgical History: Reports: Other (See Below) Social & Family History - Family History Family Medical History: Noncontributory - Caffeine Use Caffeine Use: Reports: Coffee Caffeine Use Comment: 8-10cups/day ED ROS GENERAL - Review of Systems Review Of Systems: ROS reveals no pertinent complaints other than HPI. ED EXAM, SKIN/RASH Exam: See Below (See dictation) Course - Vital Signs Last Recorded V/S: Last Vital Signs Temp 97.7 F 04/28/18 15:59 Pulse 110 H 04/28/18 15:59 Resp 18 04/28/18 15:59 BP 148/101 H 04/28/18 15:59 Pulse Ox 96 04/28/18 15:59 - Orders/Labs/Meds Meds: Medications Discontinued Medications Generic Name Dose Route Start Last Admin Trade Name Fremiri PRN Reason Stop Dose Admin Ketorolac Tromethamine 60 mg 04/28/18 16:00 04/28/18 16:06 Toradol IM 04/28/18 16:01 60 mg ONETIME ONE Administration Departure - Departure Time of Disposition: 18:15 Disposition: Home, Self-Care 01 Clinical Impression: Muscle strain, Right thigh pain, Eloped from emergency department - Discharge Information Referrals: PCP,Unknown [Primary Care Provider] - Forms: ED Department Discharge Additional Instructions: The following information is given to patients seen in the emergency department who are being discharged to home. This information is to outline your options for follow-up care. We provide all patients seen in our emergency department with a follow-up referral. The need for follow-up, as well as the timing and circumstances, are variable depending upon the specifics of your emergency department visit. If you don't have a primary care physician on staff, we will provide you with a referral. We always advise you to contact your personal physician following an emergency department visit to inform them of the circumstance of the visit and for follow-up with them and/or the need for any referrals to a consulting specialist. The emergency department will also refer you to a specialist when appropriate. This referral assures that you have the opportunity for follow-up care with a specialist. All of these measure are taken in an effort to provide you with optimal care, which includes your follow-up. Under all circumstances we always encourage you to contact your private physician who remains a resource for coordinating your care. When calling for follow-up care, please make the office aware that this follow-up is from your recent emergency room visit. If for any reason you are refused follow-up, please contact the [facility] Emergency Department at and asked to speak to the emergency department charge nurse. [facility] [address] [place] [address] [facility] [address] [place] [id number] 1. Rest, ice, elevate the affected extremity as able. 2. Tylenol and or ibuprofen as needed for pain management. 3. Please follow-up with your primary caregiver as we discussed. Return to the ED as needed and as discussed.
--- NOTE | 2018-04-28 18:01 | CR ---
Soft tissue swelling. TECHNIQUE: : Two views of the right femur Comparison: Studies dated 02/09/2016 Findings: Two views of the right femur demonstrates normal alignment. No acute fractures seen. There is a 12 cm area of calcification along the medial femoral diaphysis. No acute osseous abnormality seen.This was not seen on the prior study. Impression: 12 centimeter area of calcification along the medial femoral diaphysis could represent myositis ossificans. This was not seen on the prior study. No acute osseous findings are seen. Recommend MRI . Dictated by Maral Andersen MD @ Apr 28 2018 5:52PM (Electronically Signed)
== END 2018-04-28 18:18 | disposition home or self-care (01) ==
LOC: MW.ED 15:45
DX: S76.911A Strain of unspecified muscles, fascia and tendons at thigh level, right thigh, initial encounter (principal); Z88.0 Allergy status to penicillin; X58.XXXA Exposure to other specified factors, initial encounter
CPT/HCPCS: 73551; 96372; 99283; J1885

== ENCOUNTER 2018-04-30 11:55 | Emergency (ER) | payer MEDICAID ==
[2018-04-30 12:06] VITALS: BP 142/96
[2018-04-30] MEDS ORDERED: Ketorolac 60 MG/2 ML SDV IM ONE (12:16)
--- NOTE | 2018-04-30 12:16 | EDM.PDOC ---
ED HPI GENERAL MEDICAL PROBLEM - General Stated Complaint: L KNEE PAIN Time Seen by Provider: 04/30/18 11:56 Source of Information: Reports: Patient History Limitations: Reports: No Limitations - History of Present Illness INITIAL COMMENTS - FREE TEXT/NARRATIVE: HISTORY AND PHYSICAL: History of present illness: Patient is a 37-year-old male who was brought in by EMS after having slipped and felt his left knee "give out" [place] the park. Feels like his left knee is dislocated. EMS was called for assessment and transfer to the emergency room. Patient reports he has been drinking today. Upon entering the room the patient is fidgety on the cot and is moving both lower extremities frequently. While moving around in using the left lower extremity he is able to pop the kneecap in and out. Denies hitting his head or any loss of consciousness. Denies any fever, chills, chest pain, shortness of breath or cough. Denies any abdominal pain, nausea, vomiting, diarrhea or constipation. He has been eating and drinking appropriately. Denies any previous injury or fracture of the affected extremity. Denies any numbness or tingling of the affected extremity. Review of systems: As per history of present illness and below otherwise all systems reviewed and negative. Past medical history: As per history of present illness and as reviewed below otherwise noncontributory. Surgical history: As per history of present illness and as reviewed below otherwise noncontributory. Social history: See social history for further information Family history: As per history of present illness and as reviewed below otherwise noncontributory. Physical exam: General: Well-developed and well-nourished 37 showed male. Alert and oriented. Nontoxic appearing and in no acute distress. HEENT: Atraumatic, normocephalic, pupils equal and reactive bilaterally, negative for conjunctival pallor or scleral icterus, mucous membranes moist, TMs normal bilaterally, throat clear, neck supple, nontender, trachea midline. No drooling or trismus noted. No meningeal signs. No hot potato voice noted. Lungs: Clear to auscultation, breath sounds equal bilaterally, chest nontender. Heart: S1S2, regular rate and rhythm without overt murmur Abdomen: Soft, nondistended, nontender. Negative for masses or hepatosplenomegaly. Negative for costovertebral tenderness. Pelvis: Stable nontender. Genitourinary: Deferred. Rectal: Deferred. Skin: Intact, warm, dry. No lesions or rashes noted. Extremities: Atraumatic, negative for cords or calf pain. Neurovascular unremarkable. Neuro: Awake, alert, oriented. Cranial nerves II through XII unremarkable. Cerebellum unremarkable. Motor and sensory unremarkable throughout. Exam nonfocal. Notes: X-ray shows no fracture or osseous abnormality. Mild prepatellar soft tissue thickening. Patient is purposefully moving around and able to dislocated the patella per self. He states he is unsure of "why this keeps happening". Upon my examination the patella is in place. The knee immobilizer was put on with education. Crutches were given to patient, fitted by nursing staff along with education. We discussed the need for follow-up with the orthopedic provider. Supportive care measures were reviewed and discussed. Voices understanding and is agreeable to plan of care. Denies any further questions or concerns at this time. Diagnostics: X-ray Therapeutics: Toradol, knee immobilizer and crutches Prescription: None Impression: Left knee pain Plan: 1. Rest, ice, elevate the affected extremity. Please wear the knee immobilizer and crutches as directed. 2. Tylenol and/or Ibuprofen as needed for pain management. 3. Follow up with the Orthopedic provider as we discussed. Return to the ED as needed and as discussed. Definitive disposition and diagnosis as appropriate pending reevaluation and review of above. Onset: Today Left Knee Pain Score (Numeric/FACES): 29 - Related Data Allergies Allergy/AdvReac Type Severity Reaction Status Date / Time Penicillins Allergy Hives Verified 04/30/18 11:58 Home Meds: Home Meds . [No Known Home Meds] 01/20/18 [History] Past Medical History - Past Health History Medical/Surgical History: Denies Medical/Surgical History HEENT History: Reports: Other (See Below) Other HEENT History: teeth missing, broken Cardiovascular History: Reports: High Cholesterol, Hypertension Respiratory History: Reports: Asthma, Other (See Below) Other Respiratory History: nodes on lungs Gastrointestinal History: Reports: None Genitourinary History: Reports: None Musculoskeletal History: Reports: Fracture Neurological History: Reports: CVA Other Neuro History: Stroke last week Psychiatric History: Reports: Anxiety, Bipolar Endocrine/Metabolic History: Reports: Diabetes, Type II Hematologic History: Reports: None Immunologic History: Reports: None Oncologic (Cancer) History: Reports: None Dermatologic History: Reports: Cellulitis - Infectious Disease History Infectious Disease History: Reports: None - Past Surgical History Head Surgeries/Procedures: Reports: None Musculoskeletal Surgical History: Reports: Other (See Below) Social & Family History - Family History Family Medical History: Noncontributory - Tobacco Use Smoking Status *Q: Current Every Day Smoker Years of Tobacco use: 20 Packs/Tins Daily: 0.5 - Caffeine Use Caffeine Use: Reports: Coffee Caffeine Use Comment: 8-10cups/day - Recreational Drug Use Recreational Drug Use: No Review of Systems - Review of Systems Review Of Systems: ROS reveals no pertinent complaints other than HPI. ED EXAM, GENERAL - Physical Exam Exam: See Below (See dictation) Course - Vital Signs Last Recorded V/S: Last Vital Signs Temp 97.0 F 04/30/18 11:59 Pulse 105 H 04/30/18 11:59 Resp 22 H 04/30/18 11:59 BP 142/96 H 04/30/18 11:59 Pulse Ox 95 04/30/18 11:59 - Orders/Labs/Meds Orders: Active Orders 24 hr Category Date Time Status DME for Discharge [COMM] Stat Oth 04/30/18 13:20 Ordered Meds: Medications Discontinued Medications Generic Name Dose Route Start Last Admin Trade Name Bradly PRN Reason Stop Dose Admin Ketorolac Tromethamine 60 mg 04/30/18 12:16 04/30/18 12:26 Toradol IM 04/30/18 12:17 60 mg ONETIME ONE Administration Departure - Departure Time of Disposition: 13:31 Disposition: Home, Self-Care 01 Clinical Impression: Left knee pain Qualifiers: Chronicity: acute Qualified Code(s): M25.562 - Pain in left knee - Discharge Information Instructions: Knee Pain, Adult Referrals: PCP,Unknown [Primary Care Provider] - Forms: ED Department Discharge Additional Instructions: The following information is given to patients seen in the emergency department who are being discharged to home. This information is to outline your options for follow-up care. We provide all patients seen in our emergency department with a follow-up referral. The need for follow-up, as well as the timing and circumstances, are variable depending upon the specifics of your emergency department visit. If you don't have a primary care physician on staff, we will provide you with a referral. We always advise you to contact your personal physician following an emergency department visit to inform them of the circumstance of the visit and for follow-up with them and/or the need for any referrals to a consulting specialist. The emergency department will also refer you to a specialist when appropriate. This referral assures that you have the opportunity for follow-up care with a specialist. All of these measure are taken in an effort to provide you with optimal care, which includes your follow-up. Under all circumstances we always encourage you to contact your private physician who remains a resource for coordinating your care. When calling for follow-up care, please make the office aware that this follow-up is from your recent emergency room visit. If for any reason you are refused follow-up, please contact the [facility] Emergency Department at and asked to speak to the emergency department charge nurse. [facility] [address] [place] [address] [place] [address] [facility] [address] [place] [address], [address] [place] [address] 1. Rest, ice, elevate the affected extremity. Please wear the knee immobilizer and use the crutches as directed. 2. Tylenol and/or Ibuprofen as needed for pain management. 3. Follow up with the Orthopedic provider as we discussed. Return to the ED as needed and as discussed. - My Orders Last 24 Hours: My Active Orders 04/30/18 13:20 DME for Discharge [COMM] Stat - Assessment/Plan Last 24 Hours: My Active Orders 04/30/18 13:20 DME for Discharge [COMM] Stat
--- NOTE | 2018-04-30 13:29 | CR ---
EXAMINATION: Left knee HISTORY: Pain COMPARISON: 04/28/2018 TECHNIQUE: 3 views FINDINGS/IMPRESSION: There is a trace joint effusion and mild prepatellar soft tissue thickening. There is no fracture or acute osseous abnormality in bone mineralization appears normal. The trochlear groove appears shallow.
== END 2018-04-30 14:02 | disposition home or self-care (01) ==
LOC: MW.ED 11:55
DX: M25.562 Pain in left knee (principal); I10 Essential (primary) hypertension; E11.9 Type 2 diabetes mellitus without complications; F17.210 Nicotine dependence, cigarettes, uncomplicated; Z88.0 Allergy status to penicillin; Z86.73 Personal history of transient ischemic attack (TIA), and cerebral infarction without residual deficits; W01.0XXA Fall on same level from slipping, tripping and stumbling without subsequent striking against object, initial encounter
CPT/HCPCS: 73562; 96372; 99284; J1885

== ENCOUNTER 2018-09-11 16:29 | Emergency (ER) | payer MEDICAID ==
[2018-09-11] MEDS ORDERED: MVI, Adult with Vitamin K 10 ML, Thiamine 100 MG, Folic Acid 1 MG in Sodium Chloride 0.... IV ONE ×4 (16:37)
--- NOTE | 2018-09-11 16:44 | EDM.PDOCBH ---
ED HPI GENERAL MEDICAL PROBLEM - General Chief Complaint: Drug or Alcohol Abuse Stated Complaint: ALCOHOL WITHDRAWALS Time Seen by Provider: 09/11/18 16:41 Source of Information: Reports: Patient History Limitations: Reports: No Limitations - History of Present Illness INITIAL COMMENTS - FREE TEXT/NARRATIVE: HISTORY AND PHYSICAL: History of present illness: Patient is a 38-year-old male who presents to the emergency room for medical clearance to receive inpatient treatment at [facility]. Patient has had suicidal ideation over the past several days. This morning he presented to [facility] and inform them of his thoughts. He has been seen there before and does have her relationship with the provider there. [facility] does offer inpatient psychiatric treatment programs. A licensed master social worker/line patroller is with the patient for medical clearance as they are concerned as he does have a history of alcohol withdrawal. Patient last drank yesterday and he states he does feel slightly tremulous and anxious. Usually drinks about 1 liter of hard alcohol daily. Patient denies any fever, chills, headache, change in vision, syncope or near syncope. Denies any chest pain, back pain, shortness of breath or cough. Denies any abdominal pain, nausea, vomiting, diarrhea, constipation or dysuria. Patient has been eating and drinking appropriately. Past medical history of depression, bipolar disorder, schizophrenia, alcohol abuse and suicidal ideations. Review of systems: As per history of present illness and below otherwise all systems reviewed and negative. Past medical history: As per history of present illness and as reviewed below otherwise noncontributory. Surgical history: As per history of present illness and as reviewed below otherwise noncontributory. Social history: See social history for further information Family history: As per history of present illness and as reviewed below otherwise noncontributory. Physical exam: General: Well-developed and well-nourished 38-year-old male. Alert and oriented. Nontoxic appearing and in no acute distress. HEENT: Atraumatic, normocephalic, pupils equal and reactive bilaterally, negative for conjunctival pallor or scleral icterus, mucous membranes moist, throat clear, neck supple, nontender, trachea midline. No drooling or trismus noted. No meningeal signs. No hot potato voice noted. Lungs: Clear to auscultation, breath sounds equal bilaterally, chest nontender. Heart: S1S2, regular rate and rhythm without overt murmur Abdomen: Soft, nondistended, nontender. Negative for masses. Negative for costovertebral tenderness. Pelvis: Stable nontender. Skin: Intact, warm, dry. No lesions or rashes noted. Extremities: Atraumatic, ambulatory, moves all extremities per self without difficulty or deficits, negative for cords or calf pain. Neurovascular unremarkable. Neuro: Awake, alert, oriented. Cranial nerves II through XII unremarkable. Cerebellum unremarkable. Motor and sensory unremarkable throughout. Exam nonfocal. Notes: We did receive a phone call from [facility] prior to patient's arrival - verified that patient will be an inpatient at their facility for further care and management. Physical examination is within normal limits. He does appear slightly anxious. He is agreeable to lab work and medications. Lab work is unremarkable. Vital signs remain stable. Patient is calm, alert and appropriate. Patient will be discharged into the care of the line patroller from [facility]. [facility] and/or other facility treatment was offered, patient declines. Patient and shelter case manager voices understanding and is agreeable to plan of care. Denies any further questions or concerns at this time. Diagnostics: CBC, CMP, TSH, ETOH, Acetaminophen, Salicylate, Drug Screen, UA Therapeutics: Banana Bag, Ativan PO Prescription: None Impression: Alcohol abuse Suicidal ideation Plan: To [facility] for inpatient treatment Return to the ED as needed and as discussed. Definitive disposition and diagnosis as appropriate pending reevaluation and review of above. - Related Data Allergies Allergy/AdvReac Type Severity Reaction Status Date / Time Penicillins Allergy Hives Verified 04/30/18 11:58 Home Meds: Home Meds QUEtiapine Fumarate [Quetiapine Fumarate] 50 mg PO ACBREAKFAST 09/11/18 [History ] QUEtiapine Fumarate [Quetiapine Fumarate] 100 mg PO BEDTIME 09/11/18 [History] Past Medical History - Past Health History Medical/Surgical History: Denies Medical/Surgical History HEENT History: Reports: Other (See Below) Other HEENT History: teeth missing, broken Cardiovascular History: Reports: High Cholesterol, Hypertension Respiratory History: Reports: Asthma, Other (See Below) Other Respiratory History: nodes on lungs Gastrointestinal History: Reports: None Genitourinary History: Reports: None Musculoskeletal History: Reports: Fracture Neurological History: Reports: CVA Other Neuro History: Stroke last week Psychiatric History: Reports: Anxiety, Bipolar Endocrine/Metabolic History: Reports: Diabetes, Type II Hematologic History: Reports: None Immunologic History: Reports: None Oncologic (Cancer) History: Reports: None Dermatologic History: Reports: Cellulitis - Infectious Disease History Infectious Disease History: Reports: None - Past Surgical History Head Surgeries/Procedures: Reports: None Musculoskeletal Surgical History: Reports: Other (See Below) Social & Family History - Family History Family Medical History: Noncontributory - Caffeine Use Caffeine Use: Reports: Coffee Caffeine Use Comment: 8-10cups/day ED ROS GENERAL - Review of Systems Review Of Systems: ROS reveals no pertinent complaints other than HPI. ED EXAM, BEHAVIORAL HEALTH - Physical Exam Exam: See Below (See dictation) COURSE, BEHAVIORAL HEALTH COMP - Course Vital Signs: Last Vital Signs Temp 97.4 F 09/11/18 16:40 Pulse 67 09/11/18 19:18 Resp 16 09/11/18 19:18 BP 127/88 09/11/18 19:18 Pulse Ox 97 09/11/18 19:18 Orders, Labs, Meds: Laboratory Tests 09/11/18 09/11/18 09/11/18 Range/Units 17:14 17:14 18:15 WBC 4.84 (4.0-11.0) K/uL RBC 4.19 L (4.50-5.90) M/uL Hgb 13.8 (13.0-17.0) g/dL Hct 40.8 (38.0-50.0) % MCV 97.4 (80.0-98.0) fL MCH 32.9 H (27.0-32.0) pg MCHC 33.8 (31.0-37.0) g/dL RDW Std Deviation 52.8 (28.0-62.0) fl RDW Coeff of Felix 15 (11.0-15.0) % Plt Count 198 (150-400) K/uL MPV 9.80 (7.40-12.00) fL Neut % (Auto) 55.6 (48.0-80.0) % Lymph % (Auto) 26.4 (16.0-40.0) % Nuckolls % (Auto) 11.6 (0.0-15.0) % Eos % (Auto) 6.0 (0.0-7.0) % Baso % (Auto) 0.4 (0.0-1.5) % Neut # (Auto) 2.7 (1.4-5.7) K/uL Lymph # (Auto) 1.3 (0.6-2.4) K/uL Nuckolls # (Auto) 0.6 (0.0-0.8) K/uL Eos # (Auto) 0.3 (0.0-0.7) K/uL Baso # (Auto) 0.0 (0.0-0.1) K/uL Nucleated RBC % 0.0 /100WBC Nucleated RBCs # 0 K/uL Sodium 137 (136-148) mmol/L Potassium 3.7 (3.5-5.1) mmol/L Chloride 103 (98-107) mmol/L Carbon Dioxide 25.5 (21.0-32.0) mmol/L BUN 7 (7.0-18.0) mg/dL Creatinine 0.6 L (0.8-1.3) mg/dL Est Cr Clr Drug Dosing 152.12 mL/min Estimated GFR (MDRD) > 60.0 ml/min Glucose 108 H (74-106) mg/dL Calcium 9.2 (8.5-10.1) mg/dL Total Bilirubin 0.6 (0.2-1.0) mg/dL AST 65 H (15-37) IU/L ALT 100 H (14-63) IU/L Alkaline Phosphatase 91 (46-116) U/L Total Protein 6.8 (6.4-8.2) g/dL Albumin 3.7 (3.4-5.0) g/dL Globulin 3.1 (2.6-4.0) g/dL Albumin/Globulin Ratio 1.2 (0.9-1.6) Urine Color YELLOW Urine Appearance CLEAR Urine pH 7.5 (5.0-8.0) Ur Specific Independence 1.010 (1.001-1.035) Urine Protein NEGATIVE (NEGATIVE) mg/dL Urine Glucose (UA) NEGATIVE (NEGATIVE) mg/dL Urine Ketones NEGATIVE (NEGATIVE) mg/dL Urine Occult Blood NEGATIVE (NEGATIVE) Urine Nitrite NEGATIVE (NEGATIVE) Urine Bilirubin NEGATIVE (NEGATIVE) Urine Urobilinogen 0.2 (<2.0) EU/dL Ur Leukocyte Esterase NEGATIVE (NEGATIVE) Salicylates 2.5 (0-20) mg/dL Urine Opiates Screen (NEGATIVE) Ur Oxycodone Screen (NEGATIVE) Urine Methadone Screen (NEGATIVE) Acetaminophen <2.0 ug/mL Ur Barbiturates Screen (NEGATIVE) Ur Phencyclidine Scrn (NEGATIVE) Ur Amphetamine Screen (NEGATIVE) U Methamphetamines Scrn (NEGATIVE) U Benzodiazepines Scrn (NEGATIVE) U Cocaine Metab Screen (NEGATIVE) U Marijuana (THC) Screen (NEGATIVE) Ethyl Alcohol < 3.0 mg/dL 09/11/18 Range/Units 18:15 WBC (4.0-11.0) K/uL RBC (4.50-5.90) M/uL Hgb (13.0-17.0) g/dL Hct (38.0-50.0) % MCV (80.0-98.0) fL MCH (27.0-32.0) pg MCHC (31.0-37.0) g/dL RDW Std Deviation (28.0-62.0) fl RDW Coeff of Felix (11.0-15.0) % Plt Count (150-400) K/uL MPV (7.40-12.00) fL Neut % (Auto) (48.0-80.0) % Lymph % (Auto) (16.0-40.0) % Nuckolls % (Auto) (0.0-15.0) % Eos % (Auto) (0.0-7.0) % Baso % (Auto) (0.0-1.5) % Neut # (Auto) (1.4-5.7) K/uL Lymph # (Auto) (0.6-2.4) K/uL Nuckolls # (Auto) (0.0-0.8) K/uL Eos # (Auto) (0.0-0.7) K/uL Baso # (Auto) (0.0-0.1) K/uL Nucleated RBC % /100WBC Nucleated RBCs # K/uL Sodium (136-148) mmol/L Potassium (3.5-5.1) mmol/L Chloride (98-107) mmol/L Carbon Dioxide (21.0-32.0) mmol/L BUN (7.0-18.0) mg/dL Creatinine (0.8-1.3) mg/dL Est Cr Clr Drug Dosing mL/min Estimated GFR (MDRD) ml/min Glucose (74-106) mg/dL Calcium (8.5-10.1) mg/dL Total Bilirubin (0.2-1.0) mg/dL AST (15-37) IU/L ALT (14-63) IU/L Alkaline Phosphatase (46-116) U/L Total Protein (6.4-8.2) g/dL Albumin (3.4-5.0) g/dL Globulin (2.6-4.0) g/dL Albumin/Globulin Ratio (0.9-1.6) Urine Color Urine Appearance Urine pH (5.0-8.0) Ur Specific Independence (1.001-1.035) Urine Protein (NEGATIVE) mg/dL Urine Glucose (UA) (NEGATIVE) mg/dL Urine Ketones (NEGATIVE) mg/dL Urine Occult Blood (NEGATIVE) Urine Nitrite (NEGATIVE) Urine Bilirubin (NEGATIVE) Urine Urobilinogen (<2.0) EU/dL Ur Leukocyte Esterase (NEGATIVE) Salicylates (0-20) mg/dL Urine Opiates Screen NEGATIVE (NEGATIVE) Ur Oxycodone Screen NEGATIVE (NEGATIVE) Urine Methadone Screen NEGATIVE (NEGATIVE) Acetaminophen ug/mL Ur Barbiturates Screen NEGATIVE (NEGATIVE) Ur Phencyclidine Scrn NEGATIVE (NEGATIVE) Ur Amphetamine Screen NEGATIVE (NEGATIVE) U Methamphetamines Scrn NEGATIVE (NEGATIVE) U Benzodiazepines Scrn NEGATIVE (NEGATIVE) U Cocaine Metab Screen NEGATIVE (NEGATIVE) U Marijuana (THC) Screen POSITIVE (NEGATIVE) Ethyl Alcohol mg/dL Medications Discontinued Medications Generic Name Dose Route Start Last Admin Trade Name Freq PRN Reason Stop Dose Admin Multivitamins/Minerals 10 ml/ 1,011.2 mls @ 999 mls/hr 09/11/18 16:37 17:40 Thiamine HCl 100 mg/ Folic IV 09/11/18 17:37 999 mls/hr Acid 1 mg/ Sodium Chloride ONETIME ONE Administration Lorazepam 1 mg 09/11/18 16:49 09/11/18 17:38 Ativan PO 09/11/18 16:50 1 mg ONETIME ONE Administration Departure - Departure Time of Disposition: 18:00 Disposition: DC/Tfer to Other 70 Clinical Impression: Alcohol abuse, Suicidal ideation - Discharge Information Instructions: Substance Use Disorder and Mental Illness Referrals: PCP,None [Primary Care Provider] - Forms: ED Department Discharge Additional Instructions: The following information is given to patients seen in the emergency department who are being discharged to home. This information is to outline your options for follow-up care. We provide all patients seen in our emergency department with a follow-up referral. The need for follow-up, as well as the timing and circumstances, are variable depending upon the specifics of your emergency department visit. If you don't have a primary care physician on staff, we will provide you with a referral. We always advise you to contact your personal physician following an emergency department visit to inform them of the circumstance of the visit and for follow-up with them and/or the need for any referrals to a consulting specialist. The emergency department will also refer you to a specialist when appropriate. This referral assures that you have the opportunity for follow-up care with a specialist. All of these measure are taken in an effort to provide you with optimal care, which includes your follow-up. Under all circumstances we always encourage you to contact your private physician who remains a resource for coordinating your care. When calling for follow-up care, please make the office aware that this follow-up is from your recent emergency room visit. If for any reason you are refused follow-up, please contact the [facility] Emergency Department at and asked to speak to the emergency department charge nurse. [facility] [address] [place] [id number] [address] To [facility] for further care/management Return to the ED as needed and as discussed
[2018-09-11] MEDS ORDERED: LORazepam 1 MG Tab PO ONE (16:49)
[2018-09-11 17:48] LABS: BLOOD UREA NITROGEN,BUN 7 mg/dL (7.0-18.0); CARBON DIOXIDE,CO2 25.5 mmol/L (21.0-32.0); CHLORIDE,CL 103 mmol/L (98-107); GLUCOSE RANDOM 108 mg/dL (74-106); POTASSIUM,K 3.7 mmol/L (3.5-5.1); SODIUM,NA 137 mmol/L (136-148)
[2018-09-11 17:49] LABS: ACETAMINOPHEN <2.0 ug/mL
[2018-09-11 19:19] VITALS: BP 127/88; PULSE 67
== END 2018-09-11 19:20 | disposition other institution (70) ==
LOC: MW.ED 16:29
DX: R45.851 Suicidal ideations (principal); F10.239 Alcohol dependence with withdrawal, unspecified; E11.9 Type 2 diabetes mellitus without complications; Z86.73 Personal history of transient ischemic attack (TIA), and cerebral infarction without residual deficits; Z88.0 Allergy status to penicillin; Y90.0 Blood alcohol level of less than 20 mg/100 ml
CPT/HCPCS: 36415; 80053; 80305; 81003; 85025; 96365; 99284; A9270; G0480; J3411; J7040; 99285

== ENCOUNTER 2019-01-28 18:58 | Emergency (ER) | payer MEDICAID ==
--- NOTE | 2019-01-28 19:13 | EDM.PDOC ---
ED HPI GENERAL MEDICAL PROBLEM - General Chief Complaint: General Stated Complaint: MEDICAL CLEARANCE Time Seen by Provider: 01/28/19 19:09 Source of Information: Reports: Patient History Limitations: Reports: No Limitations - History of Present Illness INITIAL COMMENTS - FREE TEXT/NARRATIVE: HISTORY AND PHYSICAL: History of present illness: Patient is a 38-year-old male who presents to the emergency room with law enforcement for medical clearance exam. Patient states he has had a few alcoholic beverages prior to arrival law enforcement states that they want him evaluated before he is taken to snf. Patient offers no concerns or complaints at this time. Patient denies any fever, chills, headache, change in vision, syncope or near syncope. Denies any chest pain, back pain, shortness of breath or cough. Denies any abdominal pain, nausea, vomiting, diarrhea, constipation or dysuria. Has not noted any blood in urine or stool. Patient has been eating and drinking appropriately. Review of systems: As per history of present illness and below otherwise all systems reviewed and negative. Past medical history: As per history of present illness and as reviewed below otherwise noncontributory. Surgical history: As per history of present illness and as reviewed below otherwise noncontributory. Social history: See social history for further information Family history: As per history of present illness and as reviewed below otherwise noncontributory. Physical exam: General: Well-developed and well-nourished 38-year-old male. Alert and oriented. Nontoxic-appearing and in no acute distress. Patient is able to speak in full sentences and carry on a conversation. He is ambulatory in the hallway with law enforcement at bedside. HEENT: Atraumatic, normocephalic, pupils equal and reactive bilaterally, negative for conjunctival pallor or scleral icterus, mucous membranes moist, TMs normal bilaterally, throat clear, neck supple, nontender, trachea midline. No drooling or trismus noted. No meningeal signs. No hot potato voice noted. Lungs: Clear to auscultation, breath sounds equal bilaterally, chest nontender. Heart: S1S2, regular rate and rhythm without overt murmur Abdomen: Soft, nondistended, nontender. Negative for masses or hepatosplenomegaly. Negative for costovertebral tenderness. Skin: Intact, warm, dry. No lesions or rashes noted. Extremities: Atraumatic, moves all extremities per self without difficulty or deficits, negative for cords or calf pain. Neurovascular unremarkable. Neuro: Awake, alert, oriented. Cranial nerves II through XII unremarkable. Cerebellum unremarkable. Motor and sensory unremarkable throughout. Exam nonfocal. Notes: Blood glucose is in normal limits. Patient declines wanting any diagnostics at this time as he has no current complaints or concerns. Supportive care measures were reviewed and discussed. Voices understanding and is agreeable to plan of care. Denies any further questions or concerns at this time. Diagnostics: Blood glucose Therapeutics: None Prescription: None Impression: Encounter for medical screening exam Plan: 1. Please use Tylenol and/or Ibuprofen as needed for pain and fever management. 2. Get plenty of Rest. Encourage fluids to prevent dehydration. 3. Please follow up with your primary care provider. Return to the ED as needed as discussed. Definitive disposition and diagnosis as appropriate pending reevaluation and review of above. no pain Pain Score (Numeric/FACES): 0 - Related Data Allergies Allergy/AdvReac Type Severity Reaction Status Date / Time Penicillins Allergy Hives Verified 04/30/18 11:58 Home Meds: Home Meds QUEtiapine Fumarate [Quetiapine Fumarate] 50 mg PO ACBREAKFAST 09/11/18 [History ] QUEtiapine Fumarate [Quetiapine Fumarate] 100 mg PO BEDTIME 09/11/18 [History] Past Medical History - Past Health History Medical/Surgical History: Denies Medical/Surgical History HEENT History: Reports: Other (See Below) Other HEENT History: teeth missing, broken Cardiovascular History: Reports: High Cholesterol, Hypertension Respiratory History: Reports: Asthma, Other (See Below) Other Respiratory History: nodes on lungs Gastrointestinal History: Reports: None Genitourinary History: Reports: None Musculoskeletal History: Reports: Fracture Neurological History: Reports: CVA Other Neuro History: Stroke last week Psychiatric History: Reports: Anxiety, Bipolar Endocrine/Metabolic History: Reports: Diabetes, Type II Hematologic History: Reports: None Immunologic History: Reports: None Oncologic (Cancer) History: Reports: None Dermatologic History: Reports: Cellulitis - Infectious Disease History Infectious Disease History: Reports: None - Past Surgical History Head Surgeries/Procedures: Reports: None Musculoskeletal Surgical History: Reports: Other (See Below) Social & Family History - Family History Family Medical History: Noncontributory - Caffeine Use Caffeine Use: Reports: Coffee Caffeine Use Comment: 8-10cups/day ED ROS GENERAL - Review of Systems Review Of Systems: Comprehensive ROS is negative, except as noted in HPI. ED EXAM, GENERAL - Physical Exam Exam: See Below (See dictation) Course - Vital Signs Last Recorded V/S: Last Vital Signs Temp 97.7 F 01/28/19 19:13 Pulse 127 H 01/28/19 19:13 Resp 20 01/28/19 19:13 BP 150/78 H 01/28/19 19:13 Pulse Ox 98 01/28/19 19:13 - Orders/Labs/Meds Orders: Active Orders 24 hr Category Date Time Status Blood Glucose Check, Bedside [RC] ONETIME Care 01/28/19 19:13 Active Departure - Departure Time of Disposition: 19:10 Disposition: Home, Self-Care 01 Clinical Impression: Encounter for medical screening examination - Discharge Information Referrals: PCP,None [Primary Care Provider] - Forms: ED Department Discharge Additional Instructions: The following information is given to patients seen in the emergency department who are being discharged to home. This information is to outline your options for follow-up care. We provide all patients seen in our emergency department with a follow-up referral. The need for follow-up, as well as the timing and circumstances, are variable depending upon the specifics of your emergency department visit. If you don't have a primary care physician on staff, we will provide you with a referral. We always advise you to contact your personal physician following an emergency department visit to inform them of the circumstance of the visit and for follow-up with them and/or the need for any referrals to a consulting specialist. The emergency department will also refer you to a specialist when appropriate. This referral assures that you have the opportunity for follow-up care with a specialist. All of these measure are taken in an effort to provide you with optimal care, which includes your follow-up. Under all circumstances we always encourage you to contact your private physician who remains a resource for coordinating your care. When calling for follow-up care, please make the office aware that this follow-up is from your recent emergency room visit. If for any reason you are refused follow-up, please contact the [facility] Emergency Department at and asked to speak to the emergency department charge nurse. [facility] [address] [place] [id number] 1. Stop using drugs and alcohol. 2. Get plenty of Rest. Encourage fluids to prevent dehydration. 3. Please follow up with your primary care provider. Return to the ED as needed as discussed Sepsis Event Note - Focused Exam Vital Signs: Vital Signs Temp Pulse Resp BP Pulse Ox 01/28/19 19:13 97.7 F 127 H 20 150/78 H 98 Date Exam was Performed: 01/28/19 Time Exam was Performed: 19:19 - My Orders Last 24 Hours: My Active Orders 01/28/19 19:13 Blood Glucose Check, Bedside [RC] ONETIME - Assessment/Plan Last 24 Hours: My Active Orders 01/28/19 19:13 Blood Glucose Check, Bedside [RC] ONETIME
[2019-01-28 19:42] VITALS: BP 140/80; PULSE 102
== END 2019-01-28 19:25 | disposition home or self-care (01) ==
LOC: MW.ED 18:58
DX: Z02.89 Encounter for other administrative examinations (principal); I10 Essential (primary) hypertension; E11.9 Type 2 diabetes mellitus without complications; F31.9 Bipolar disorder, unspecified; Z86.73 Personal history of transient ischemic attack (TIA), and cerebral infarction without residual deficits; Z88.0 Allergy status to penicillin
CPT/HCPCS: 82962; 99283

== ENCOUNTER 2019-02-22 16:14 | Emergency (ER) | payer MEDICAID | END 2019-02-22 17:21 | disposition home or self-care (01) | LOC: MW.ED 16:14 | DX: Z53.21 Procedure and treatment not carried out due to patient leaving prior to being seen by health care provider (principal) ==

== ENCOUNTER 2019-03-25 17:15 | Emergency (ER) | payer MEDICAID ==
--- NOTE | 2019-03-25 17:23 | EDM.PDOC ---
ED HPI GENERAL MEDICAL PROBLEM - General Chief Complaint: Chest Pain Stated Complaint: EMS ARRIVAL CHEST PAIN Time Seen by Provider: 03/25/19 17:23 Source of Information: Reports: Patient, EMS History Limitations: Reports: Intoxication - History of Present Illness Onset: Unknown/Unsure Duration: Getting Worse Location: Reports: Chest, Abdomen Quality: Reports: Burning Severity: Moderate Improves with: Reports: None Worsens with: Reports: Eating Associated Symptoms: Reports: Other (Suicidal ideation with plan) - Related Data Allergies Allergy/AdvReac Type Severity Reaction Status Date / Time Penicillins Allergy Hives Verified 03/25/19 17:24 Home Meds: Home Meds QUEtiapine Fumarate [Quetiapine Fumarate] 50 mg PO ACBREAKFAST 09/11/18 [History ] QUEtiapine Fumarate [Quetiapine Fumarate] 100 mg PO BEDTIME 09/11/18 [History] Past Medical History - Past Health History Medical/Surgical History: Denies Medical/Surgical History HEENT History: Reports: Other (See Below) Other HEENT History: teeth missing, broken Cardiovascular History: Reports: High Cholesterol, Hypertension Respiratory History: Reports: Asthma, Other (See Below) Other Respiratory History: nodes on lungs Gastrointestinal History: Reports: None Genitourinary History: Reports: None Musculoskeletal History: Reports: Fracture Neurological History: Reports: CVA Other Neuro History: Stroke last week Psychiatric History: Reports: Anxiety, Bipolar Endocrine/Metabolic History: Reports: Diabetes, Type II Hematologic History: Reports: None Immunologic History: Reports: None Oncologic (Cancer) History: Reports: None Dermatologic History: Reports: Cellulitis - Infectious Disease History Infectious Disease History: Reports: None - Past Surgical History Head Surgeries/Procedures: Reports: None Musculoskeletal Surgical History: Reports: Other (See Below) Social & Family History - Family History Family Medical History: Noncontributory - Caffeine Use Caffeine Use: Reports: Coffee Caffeine Use Comment: 8-10cups/day ED ROS GENERAL - Review of Systems Review Of Systems: Comprehensive ROS is negative, except as noted in HPI. ED EXAM, GENERAL - Physical Exam Exam: See Below Exam Limited By: Intoxication General Appearance: No Apparent Distress Head: Atraumatic, Normocephalic Neck: Normal Inspection, Supple Respiratory/Chest: No Respiratory Distress, Lungs Clear, Normal Breath Sounds Cardiovascular: Regular Rate, Rhythm, No Edema, No JVD GI/Abdominal: Normal Bowel Sounds, Soft, Non-Tender Back Exam: Normal Inspection Neurological: CN II-XII Intact, Normal Cognition Psychiatric: Depressed Mood Skin Exam: Warm, Dry Course - Vital Signs Last Recorded V/S: Last Vital Signs Temp 36.9 C 03/25/19 20:28 Pulse 116 H 03/25/19 20:28 Resp 18 03/25/19 20:28 BP 123/80 03/25/19 20:28 Pulse Ox 98 03/25/19 20:28 - Orders/Labs/Meds Labs: Laboratory Tests 03/25/19 03/25/19 03/25/19 Range/Units 17:19 17:19 17:19 WBC 12.34 H (4.0-11.0) K/uL RBC 5.14 (4.50-5.90) M/uL Hgb 17.3 H (13.0-17.0) g/dL Hct 49.5 (38.0-50.0) % MCV 96.3 (80.0-98.0) fL MCH 33.7 H (27.0-32.0) pg MCHC 34.9 (31.0-37.0) g/dL RDW Std Deviation 55.7 (28.0-62.0) fl RDW Coeff of Felix 16 H (11.0-15.0) % Plt Count 187 (150-400) K/uL MPV 9.80 (7.40-12.00) fL Neut % (Auto) 77.9 (48.0-80.0) % Lymph % (Auto) 10.9 L (16.0-40.0) % [place] % (Auto) 10.8 (0.0-15.0) % Eos % (Auto) 0.2 (0.0-7.0) % Baso % (Auto) 0.2 (0.0-1.5) % Neut # (Auto) 9.6 H (1.4-5.7) K/uL Lymph # (Auto) 1.3 (0.6-2.4) K/uL [place] # (Auto) 1.3 H (0.0-0.8) K/uL Eos # (Auto) 0.0 (0.0-0.7) K/uL Baso # (Auto) 0.0 (0.0-0.1) K/uL Nucleated RBC % 0.0 /100WBC Nucleated RBCs # 0 K/uL D-Dimer, Quantitative 0.45 (0.0-0.50) mg/L FEU Sodium 138 (136-148) mmol/L Potassium 3.7 (3.5-5.1) mmol/L Chloride 97 L (98-107) mmol/L Carbon Dioxide 22.5 (21.0-32.0) mmol/L BUN 7 (7.0-18.0) mg/dL Creatinine 0.8 (0.8-1.3) mg/dL Est Cr Clr Drug Dosing 126.43 mL/min Estimated GFR (MDRD) > 60.0 ml/min Glucose 50 L (74-106) mg/dL Calcium 9.3 (8.5-10.1) mg/dL Total Bilirubin 1.0 (0.2-1.0) mg/dL AST 128 H (15-37) IU/L ALT 94 H (14-63) IU/L Alkaline Phosphatase 114 (46-116) U/L Troponin I < 0.050 (0.000-0.056) ng/mL Total Protein 8.1 (6.4-8.2) g/dL Albumin 4.4 (3.4-5.0) g/dL Globulin 3.7 (2.6-4.0) g/dL Albumin/Globulin Ratio 1.2 (0.9-1.6) Lipase 128 (73-393) U/L Urine Opiates Screen (NEGATIVE) Ur Oxycodone Screen (NEGATIVE) Urine Methadone Screen (NEGATIVE) Ur Barbiturates Screen (NEGATIVE) Ur Phencyclidine Scrn (NEGATIVE) Ur Amphetamine Screen (NEGATIVE) U Methamphetamines Scrn (NEGATIVE) U Benzodiazepines Scrn (NEGATIVE) U Cocaine Metab Screen (NEGATIVE) U Marijuana (THC) Screen (NEGATIVE) Ethyl Alcohol 83 mg/dL 03/25/19 Range/Units 18:25 WBC (4.0-11.0) K/uL RBC (4.50-5.90) M/uL Hgb (13.0-17.0) g/dL Hct (38.0-50.0) % MCV (80.0-98.0) fL MCH (27.0-32.0) pg MCHC (31.0-37.0) g/dL RDW Std Deviation (28.0-62.0) fl RDW Coeff of Felix (11.0-15.0) % Plt Count (150-400) K/uL MPV (7.40-12.00) fL Neut % (Auto) (48.0-80.0) % Lymph % (Auto) (16.0-40.0) % [place] % (Auto) (0.0-15.0) % Eos % (Auto) (0.0-7.0) % Baso % (Auto) (0.0-1.5) % Neut # (Auto) (1.4-5.7) K/uL Lymph # (Auto) (0.6-2.4) K/uL [place] # (Auto) (0.0-0.8) K/uL Eos # (Auto) (0.0-0.7) K/uL Baso # (Auto) (0.0-0.1) K/uL Nucleated RBC % /100WBC Nucleated RBCs # K/uL D-Dimer, Quantitative (0.0-0.50) mg/L FEU Sodium (136-148) mmol/L Potassium (3.5-5.1) mmol/L Chloride (98-107) mmol/L Carbon Dioxide (21.0-32.0) mmol/L BUN (7.0-18.0) mg/dL Creatinine (0.8-1.3) mg/dL Est Cr Clr Drug Dosing mL/min Estimated GFR (MDRD) ml/min Glucose (74-106) mg/dL Calcium (8.5-10.1) mg/dL Total Bilirubin (0.2-1.0) mg/dL AST (15-37) IU/L ALT (14-63) IU/L Alkaline Phosphatase (46-116) U/L Troponin I (0.000-0.056) ng/mL Total Protein (6.4-8.2) g/dL Albumin (3.4-5.0) g/dL Globulin (2.6-4.0) g/dL Albumin/Globulin Ratio (0.9-1.6) Lipase (73-393) U/L Urine Opiates Screen NEGATIVE (NEGATIVE) Ur Oxycodone Screen NEGATIVE (NEGATIVE) Urine Methadone Screen NEGATIVE (NEGATIVE) Ur Barbiturates Screen NEGATIVE (NEGATIVE) Ur Phencyclidine Scrn NEGATIVE (NEGATIVE) Ur Amphetamine Screen NEGATIVE (NEGATIVE) U Methamphetamines Scrn NEGATIVE (NEGATIVE) U Benzodiazepines Scrn NEGATIVE (NEGATIVE) U Cocaine Metab Screen NEGATIVE (NEGATIVE) U Marijuana (THC) Screen NEGATIVE (NEGATIVE) Ethyl Alcohol mg/dL Meds: Medications Discontinued Medications Generic Name Dose Route Start Last Admin Trade Name Freq PRN Reason Stop Dose Admin Nicotine 14 mg 03/25/19 20:19 03/25/19 20:27 Habitrol TRDERM 03/25/19 20:20 14 mg ONETIME ONE Administration Departure - Departure Time of Disposition: 20:20 Disposition: DC/Tfer to [facility]Unit [facility] Reason for Transfer *Q: Primary PCI Indicated (Suicidal ideation with plan) Clinical Impression: Atypical chest pain, Major depression, Suicidal ideations Referrals: PCP,None [Primary Care Provider] - Forms: ED Department Discharge Sepsis Event Note - Focused Exam Date Exam was Performed: 03/27/19 Time Exam was Performed: 14:39
[2019-03-25 18:09] LABS: BLOOD UREA NITROGEN,BUN 7 mg/dL (7.0-18.0); CARBON DIOXIDE,CO2 22.5 mmol/L (21.0-32.0); CHLORIDE,CL 97 mmol/L (98-107); GLUCOSE RANDOM 50 mg/dL (74-106); LIPASE 128 U/L (73-393); POTASSIUM,K 3.7 mmol/L (3.5-5.1); SODIUM,NA 138 mmol/L (136-148)
--- NOTE | 2019-03-25 18:25 | CR ---
Chest: 2 views of the chest were obtained. Comparison: Previous chest x-ray of 09/23/17. Heart size and mediastinum are normal. Lungs are clear with no acute parenchymal change. Slight degenerative change is noted within the spine with mild scoliosis. Impression: 1. Nothing acute is seen on 2 view chest x-ray. Diagnostic code #2 Study was dictated in [place] Standard Time
[2019-03-25] MEDS ORDERED: Nicotine 14 MG/24 Hr Patch TRDERM ONE (20:19)
[2019-03-25 20:28] VITALS: BP 123/80; PULSE 116
== END 2019-03-25 21:00 ==
LOC: MW.ED 17:15
DX: R07.89 Other chest pain (principal); F32.9 Major depressive disorder, single episode, unspecified; I10 Essential (primary) hypertension; E11.9 Type 2 diabetes mellitus without complications; Z86.73 Personal history of transient ischemic attack (TIA), and cerebral infarction without residual deficits; Z88.0 Allergy status to penicillin; Z79.899 Other long term (current) drug therapy
CPT/HCPCS: 71046; 80053; 80305; 80307; 83690; 84484; 85025; 85379; 93005; 99285; A9270

== ENCOUNTER 2019-04-13 22:08 | Inpatient (IN) | payer MEDICAID ==
[2019-04-13] MEDS ORDERED: Thiamine 100 MG in Sodium Chloride 0.9% 100 ML IV ONE (22:17)
[2019-04-13] MEDS ORDERED: Pantoprazole 80 MG in Sodium Chloride 0.9% 20 ML IVPUSH ONE (22:18)
[2019-04-13] MEDS ORDERED: Ondansetron 4 MG/2 ML SDV IVPUSH ONE (22:18)
[2019-04-13] MEDS ORDERED: Sodium Chloride 0.9% 1,000 ML IV ONE (22:18)
[2019-04-13] MEDS ORDERED: Pantoprazole 80 MG in Sodium Chloride 0.9% 100 ML IV SCH (22:30)
[2019-04-13] MEDS ORDERED: Pantoprazole 40 MG Vial ONE (22:30)
[2019-04-13 22:47] LABS: BLOOD UREA NITROGEN,BUN 7 mg/dL (7.0-18.0); CARBON DIOXIDE,CO2 23.8 mmol/L (21.0-32.0); CHLORIDE,CL 101 mmol/L (98-107); GLUCOSE RANDOM 101 mg/dL (74-106); LIPASE 241 U/L (73-393); SODIUM,NA 142 mmol/L (136-148)
[2019-04-13] MEDS ORDERED: Magnesium Sulfate/Water 100 ML IV ONE (23:45)
--- NOTE | 2019-04-13 23:52 | EDM.PDOC ---
ED HPI GENERAL MEDICAL PROBLEM - General Chief Complaint: General Stated Complaint: EMS ARRIVAL CHEST PAIN Time Seen by Provider: 04/13/19 22:16 Source of Information: Reports: EMS Notes Reviewed History Limitations: Reports: Altered Mental Status - History of Present Illness INITIAL COMMENTS - FREE TEXT/NARRATIVE: CC hematemesis HPI: This is a floridly intoxicated 38-year-old male that claims to be throwing up blood. Patient is extremely inebriated and unable to provide any further history PMHX/PSHX: Unobtainable Social History: Positive for alcohol and marijuana Family history: Hypertension ROS: see chart PE: Floridly intoxicated VS afebrile vital signs stable General: No apparent distress Head: Atraumatic normocephalic no lumps bumps or bruises Eyes: EOMI PERRLA Ears: TMs intact no hemotympanum no signs of infection no mastoid tenderness Nose: No epistaxis nares patent no septal wall hematoma Throat: No pharyngeal erythema or exudate no tonsillar enlargement gag reflex intact Neck: Supple, no cervical lymphadenopathy Chest wall: No point tenderness Heart: Regular rate and rhythm without murmur gallop or rub Lungs: Clear to auscultation and percussion without rales rhonchi or wheeze Abdomen: Soft nontender nondistended without guarding rigidity or rebound Neck: No spinal point tenderness full range of motion in all 6 directions Back: No spinal paraspinal or CVA tenderness Extremities: full rom through out. no effusions skin: Warm dry intact no rashes neurologic: cranial nerves II through XII intact. No focal motor or sensory deficits noted MDM: Differential diagnosis:GI bleed esophageal varices gastritis ED course: Patient had an NG tube placed which was irrigated with 100 mL's of saline and there was no bloody return. Patient was not tolerating the NG tube so it was removed. Patient was started on Protonix bolus and drip. He was given IV fluids and thiamine. Patient serum alcohol came back markedly elevated over 500. The rest of his laboratories were stable. Patient's case was discussed with Dr. Fortune from the hospitalist service and patient will be admitted to the intensive care unit Diagnosis: Severe alcohol intoxication and vomiting Disposition: Admit "everywhere" Pain Score (Numeric/FACES): 5 - Related Data Allergies Allergy/AdvReac Type Severity Reaction Status Date / Time Penicillins Allergy Hives Verified 04/13/19 22:16 Home Meds: Home Meds QUEtiapine Fumarate [Quetiapine Fumarate] 50 mg PO ACBREAKFAST 09/11/18 [History ] QUEtiapine Fumarate [Quetiapine Fumarate] 100 mg PO BEDTIME 09/11/18 [History] Past Medical History - Past Health History Medical/Surgical History: Denies Medical/Surgical History HEENT History: Reports: Other (See Below) Other HEENT History: teeth missing, broken Cardiovascular History: Reports: High Cholesterol, Hypertension Respiratory History: Reports: Asthma, Other (See Below) Other Respiratory History: nodes on lungs Gastrointestinal History: Reports: None Genitourinary History: Reports: None Musculoskeletal History: Reports: Fracture Neurological History: Reports: CVA Other Neuro History: Stroke last week Psychiatric History: Reports: Anxiety, Bipolar Endocrine/Metabolic History: Reports: Diabetes, Type II Hematologic History: Reports: None Immunologic History: Reports: None Oncologic (Cancer) History: Reports: None Dermatologic History: Reports: Cellulitis - Infectious Disease History Infectious Disease History: Reports: None - Past Surgical History Head Surgeries/Procedures: Reports: None Musculoskeletal Surgical History: Reports: Other (See Below) Social & Family History - Family History Family Medical History: Noncontributory - Caffeine Use Caffeine Use: Reports: Coffee Caffeine Use Comment: 8-10cups/day ED ROS GENERAL - Review of Systems Review Of Systems: Comprehensive ROS is negative, except as noted in HPI. ED EXAM, GENERAL - Physical Exam Exam: See Below Free Text/Narrative:: See my H&P Course - Vital Signs Last Recorded V/S: Last Vital Signs Temp 36.7 C 04/13/19 22:11 Pulse 105 H 04/13/19 22:11 Resp 18 04/13/19 22:11 BP 152/102 H 04/13/19 22:11 Pulse Ox 93 L 04/13/19 22:11 - Orders/Labs/Meds Orders: Active Orders 24 hr Category Date Time Status Chest 1V Frontal [CR] Stat Exams 04/13/19 22:34 Ordered Pantoprazole [ProTONIX IV] 80 mg Med 04/13/19 22:30 Active Sodium Chloride 0.9% [Normal Saline] 100 ml IV .Continuous Medication Orders Pantoprazole Sodium 80 mg/ (Sodium Chloride) 100 mls @ 10 mls/hr IV .Continuous KIRSTY Last Admin: 04/13/19 22:55 Dose: 10 mls/hr Labs: Laboratory Tests 04/13/19 04/13/19 04/13/19 Range/Units 22:10 22:10 22:10 WBC 7.25 (4.0-11.0) K/uL RBC 5.08 (4.50-5.90) M/uL Hgb 16.9 (13.0-17.0) g/dL Hct 49.4 (38.0-50.0) % MCV 97.2 (80.0-98.0) fL MCH 33.3 H (27.0-32.0) pg MCHC 34.2 (31.0-37.0) g/dL RDW Std Deviation 55.9 (28.0-62.0) fl RDW Coeff of Felix 16 H (11.0-15.0) % Plt Count 224 (150-400) K/uL MPV 10.00 (7.40-12.00) fL Neut % (Auto) 44.2 L (48.0-80.0) % Lymph % (Auto) 41.9 H (16.0-40.0) % [place] % (Auto) 12.7 (0.0-15.0) % Eos % (Auto) 0.6 (0.0-7.0) % Baso % (Auto) 0.6 (0.0-1.5) % Neut # (Auto) 3.2 (1.4-5.7) K/uL Lymph # (Auto) 3.0 H (0.6-2.4) K/uL [place] # (Auto) 0.9 H (0.0-0.8) K/uL Eos # (Auto) 0.0 (0.0-0.7) K/uL Baso # (Auto) 0.0 (0.0-0.1) K/uL Nucleated RBC % 0.0 /100WBC Nucleated RBCs # 0 K/uL INR 0.96 Sodium 142 (136-148) mmol/L Potassium 3.0 L (3.5-5.1) mmol/L Chloride 101 (98-107) mmol/L Carbon Dioxide 23.8 (21.0-32.0) mmol/L BUN 7 (7.0-18.0) mg/dL Creatinine 0.8 (0.8-1.3) mg/dL Est Cr Clr Drug Dosing TNP Estimated GFR (MDRD) > 60.0 ml/min Glucose 101 (74-106) mg/dL Calcium 9.7 (8.5-10.1) mg/dL Magnesium (1.8-2.4) mg/dL Total Bilirubin 0.6 (0.2-1.0) mg/dL AST 85 H (15-37) IU/L ALT 62 (14-63) IU/L Alkaline Phosphatase 101 (46-116) U/L Total Protein 7.7 (6.4-8.2) g/dL Albumin 4.1 (3.4-5.0) g/dL Globulin 3.6 (2.6-4.0) g/dL Albumin/Globulin Ratio 1.1 (0.9-1.6) Lipase 241 (73-393) U/L Urine Opiates Screen (NEGATIVE) Ur Oxycodone Screen (NEGATIVE) Urine Methadone Screen (NEGATIVE) Ur Barbiturates Screen (NEGATIVE) Ur Phencyclidine Scrn (NEGATIVE) Ur Amphetamine Screen (NEGATIVE) U Methamphetamines Scrn (NEGATIVE) U Benzodiazepines Scrn (NEGATIVE) U Cocaine Metab Screen (NEGATIVE) U Marijuana (THC) Screen (NEGATIVE) Ethyl Alcohol 513 mg/dL Blood Type Antibody Screen 04/13/19 04/13/19 04/13/19 Range/Units 22:10 22:15 23:15 WBC (4.0-11.0) K/uL RBC (4.50-5.90) M/uL Hgb (13.0-17.0) g/dL Hct (38.0-50.0) % MCV (80.0-98.0) fL MCH (27.0-32.0) pg MCHC (31.0-37.0) g/dL RDW Std Deviation (28.0-62.0) fl RDW Coeff of Felix (11.0-15.0) % Plt Count (150-400) K/uL MPV (7.40-12.00) fL Neut % (Auto) (48.0-80.0) % Lymph % (Auto) (16.0-40.0) % [place] % (Auto) (0.0-15.0) % Eos % (Auto) (0.0-7.0) % Baso % (Auto) (0.0-1.5) % Neut # (Auto) (1.4-5.7) K/uL Lymph # (Auto) (0.6-2.4) K/uL [place] # (Auto) (0.0-0.8) K/uL Eos # (Auto) (0.0-0.7) K/uL Baso # (Auto) (0.0-0.1) K/uL Nucleated RBC % /100WBC Nucleated RBCs # K/uL INR Sodium (136-148) mmol/L Potassium (3.5-5.1) mmol/L Chloride (98-107) mmol/L Carbon Dioxide (21.0-32.0) mmol/L BUN (7.0-18.0) mg/dL Creatinine (0.8-1.3) mg/dL Est Cr Clr Drug Dosing Estimated GFR (MDRD) ml/min Glucose (74-106) mg/dL Calcium (8.5-10.1) mg/dL Magnesium 1.7 L (1.8-2.4) mg/dL Total Bilirubin (0.2-1.0) mg/dL AST (15-37) IU/L ALT (14-63) IU/L Alkaline Phosphatase (46-116) U/L Total Protein (6.4-8.2) g/dL Albumin (3.4-5.0) g/dL Globulin (2.6-4.0) g/dL Albumin/Globulin Ratio (0.9-1.6) Lipase (73-393) U/L Urine Opiates Screen NEGATIVE (NEGATIVE) Ur Oxycodone Screen NEGATIVE (NEGATIVE) Urine Methadone Screen NEGATIVE (NEGATIVE) Ur Barbiturates Screen NEGATIVE (NEGATIVE) Ur Phencyclidine Scrn NEGATIVE (NEGATIVE) Ur Amphetamine Screen NEGATIVE (NEGATIVE) U Methamphetamines Scrn NEGATIVE (NEGATIVE) U Benzodiazepines Scrn NEGATIVE (NEGATIVE) U Cocaine Metab Screen NEGATIVE (NEGATIVE) U Marijuana (THC) Screen POSITIVE (NEGATIVE) Ethyl Alcohol mg/dL Blood Type A POSITIVE Antibody Screen NEGATIVE Meds: Medications Generic Name Dose Route Start Last Admin Trade Name Freq PRN Reason Stop Dose Admin Pantoprazole Sodium 80 mg/ 100 mls @ 10 mls/hr 04/13/19 22:30 04/13/19 22:55 Sodium Chloride IV 10 mls/hr .Continuous KIRSTY Administration Discontinued Medications Generic Name Dose Route Start Last Admin Trade Name Bradly PRN Reason Stop Dose Admin Pantoprazole Sodium 80 mg/ 20 mls @ 420 mls/hr 04/13/19 22:18 04/13/19 22:46 Sodium Chloride IVPUSH 04/13/19 22:20 420 mls/hr ONETIME ONE Administration Sodium Chloride 1,000 mls @ 1,000 mls/hr 04/13/19 22:18 04/13/19 22:43 Normal Saline IV 04/13/19 23:17 1,000 mls/hr .Bolus ONE Administration Thiamine HCl 100 mg/ Sodium 101 mls @ 202 mls/hr 04/13/19 22:17 04/13/19 22: 55 Chloride IV 04/13/19 22:18 202 mls/hr ONETIME ONE Administration Ondansetron HCl 4 mg 04/13/19 22:18 04/13/19 22:46 Zofran IVPUSH 04/13/19 22:19 4 mg ONETIME ONE Administration Pantoprazole Sodium Confirm 04/13/19 22:30 04/13/19 22:55 Protonix Iv Administered 04/13/19 22:31 Not Given Dose 80 mg .ROUTE .STK-MED ONE Departure - Departure Time of Disposition: 23:51 Disposition: Refer to Observation Clinical Impression: Alcohol intoxication Qualifiers: Complication of substance-induced condition: with delirium Qualified Code(s): F10.921 - Alcohol use, unspecified with intoxication delirium - Discharge Information Sepsis Event Note - Evaluation Sepsis Screening Result: No Definite Risk - Focused Exam Vital Signs: Vital Signs Temp Pulse Resp BP Pulse Ox 04/13/19 22:11 36.7 C 105 H 18 152/102 H 93 L Date Exam was Performed: 04/13/19 Time Exam was Performed: 23:49 - My Orders Last 24 Hours: My Active Orders 04/13/19 22:30 Pantoprazole [ProTONIX IV] 80 mg Sodium Chloride 0.9% [Normal Saline] 100 ml IV .Continuous 04/13/19 22:34 Chest 1V Frontal [CR] Stat - Assessment/Plan Last 24 Hours: My Active Orders 04/13/19 22:30 Pantoprazole [ProTONIX IV] 80 mg Sodium Chloride 0.9% [Normal Saline] 100 ml IV .Continuous 04/13/19 22:34 Chest 1V Frontal [CR] Stat
[2019-04-13] MEDS ORDERED: Magnesium Sulfate (4.06 MEQ/ML) 5 GM/10 ML SDV IV ONE (23:54)
[2019-04-14] MEDS ORDERED: Magnesium Sulfate/Water 2 GM in Premix Bag 1 BAG IV ONE (00:11)
[2019-04-14 01:23] VITALS: PULSE 101
[2019-04-14] MEDS ORDERED: LORazepam 2 MG/ML SDV IVPUSH PRN (02:02)
[2019-04-14] MEDS ORDERED: Ondansetron 4 MG Tab.DIS PO PRN (02:03)
--- NOTE | 2019-04-14 02:12 | PCM.HP.2 ---
H&P History of Present Illness - General Date of Service: 04/14/19 Admit Problem/Dx: Admission Diagnosis/Problem Admission Diagnosis/Problem Alcohol intoxication delirium - History of Present Illness Initial Comments - Free Text/Narative: 38 yo male with pmh of alcohol abuse who presents to the ED intoxicated with complaints of vomiting blood. Patient admits to drinking a liter of alcohol a day. He reports tremors when he stops drinking. NG tube was placed in the ED and no bloody gastric contents were found. "everywhere" Pain Score (Numeric/FACES): 0 - Related Data Allergies/Adverse Reactions: Allergies Allergy/AdvReac Type Severity Reaction Status Date / Time Penicillins Allergy Hives Verified 04/13/19 22:16 Home Medications: Home Meds QUEtiapine Fumarate [Quetiapine Fumarate] 50 mg PO ACBREAKFAST 09/11/18 [History ] QUEtiapine Fumarate [Quetiapine Fumarate] 100 mg PO BEDTIME 09/11/18 [History] Past Medical History - Past Health History Medical/Surgical History: Denies Medical/Surgical History HEENT History: Reports: Other (See Below) Other HEENT History: teeth missing, broken Cardiovascular History: Reports: High Cholesterol, Hypertension Respiratory History: Reports: Asthma, Other (See Below) Other Respiratory History: nodes on lungs Gastrointestinal History: Reports: None Genitourinary History: Reports: None Musculoskeletal History: Reports: Fracture Neurological History: Reports: CVA Other Neuro History: Stroke last week Psychiatric History: Reports: Anxiety, Bipolar Other Psychiatric History: Unable to verify d/t severe intoxication Endocrine/Metabolic History: Reports: Diabetes, Type II Hematologic History: Reports: None Immunologic History: Reports: None Oncologic (Cancer) History: Reports: None Dermatologic History: Reports: Cellulitis - Infectious Disease History Infectious Disease History: Reports: None - Past Surgical History Head Surgeries/Procedures: Reports: None Other Respiratory Surgeries/Procedures: Unable to verify -- doesn't answers to specific questions Other Endocrine Surgeries/Procedures: Unable to verify - not answering Other Neurological Surgeries/Procedures: Unable to verify -- not answering Musculoskeletal Surgical History: Reports: Other (See Below) Other Musculoskeletal Surgeries/Procedures:: Unable to verify -- not answering Social & Family History - Family History Family Medical History: Noncontributory - Tobacco Use Smoking Status *Q: Current Every Day Smoker Years of Tobacco use: 32 Packs/Tins Daily: 2 Used Tobacco, but Quit: No - Caffeine Use Caffeine Use: Reports: Coffee Caffeine Use Comment: 8-10cups/day - Alcohol Use Days Per Week of Alcohol Use: 7 Number of Drinks Per Day: 1 Total Drinks Per Week: 7 Date of Last Drink: 04/13/19 - Recreational Drug Use Recreational Drug Use: Yes Drug Use in Last 12 Months: Yes Recreational Drug Type: Reports: Marijuana/Hashish H&P Review of Systems - Review of Systems: Review Of Systems: Unable To Obtain Exam - Vital Signs Vital Signs: Last Vital Signs Temp 37.0 C 04/14/19 01:00 Pulse 101 H 04/14/19 00:45 Resp 24 H 04/14/19 01:00 BP 113/70 04/14/19 01:00 Pulse Ox 91 L 04/14/19 01:00 Weight: 78.018 kg - Exam General: Other (intoxicated) HEENT: Mucosa Moist & [place] Lungs: Clear to Auscultation, Normal Respiratory Effort Cardiovascular: Regular Rate, Regular Rhythm GI/Abdominal Exam: Normal Bowel Sounds, Soft, Non-Tender Extremities: Non-Tender, No Pedal Edema Skin: Warm, Dry, Intact Neurological: Cranial Nerves Intact. No: Focal Deficit - Patient Data Lab Results Last 24 hrs: Laboratory Results - last 24 hr 04/13/19 04/13/19 04/13/19 Range/Units 22:10 22:10 22:10 WBC 7.25 (4.0-11.0) K/uL RBC 5.08 (4.50-5.90) M/uL Hgb 16.9 (13.0-17.0) g/dL Hct 49.4 (38.0-50.0) % MCV 97.2 (80.0-98.0) fL MCH 33.3 H (27.0-32.0) pg MCHC 34.2 (31.0-37.0) g/dL RDW Std Deviation 55.9 (28.0-62.0) fl RDW Coeff of Felix 16 H (11.0-15.0) % Plt Count 224 (150-400) K/uL MPV 10.00 (7.40-12.00) fL Neut % (Auto) 44.2 L (48.0-80.0) % Lymph % (Auto) 41.9 H (16.0-40.0) % [place] % (Auto) 12.7 (0.0-15.0) % Eos % (Auto) 0.6 (0.0-7.0) % Baso % (Auto) 0.6 (0.0-1.5) % Neut # (Auto) 3.2 (1.4-5.7) K/uL Lymph # (Auto) 3.0 H (0.6-2.4) K/uL [place] # (Auto) 0.9 H (0.0-0.8) K/uL Eos # (Auto) 0.0 (0.0-0.7) K/uL Baso # (Auto) 0.0 (0.0-0.1) K/uL Nucleated RBC % 0.0 /100WBC Nucleated RBCs # 0 K/uL INR 0.96 Sodium 142 (136-148) mmol/L Potassium 3.0 L (3.5-5.1) mmol/L Chloride 101 (98-107) mmol/L Carbon Dioxide 23.8 (21.0-32.0) mmol/L BUN 7 (7.0-18.0) mg/dL Creatinine 0.8 (0.8-1.3) mg/dL Est Cr Clr Drug Dosing TNP Estimated GFR (MDRD) > 60.0 ml/min Glucose 101 (74-106) mg/dL Calcium 9.7 (8.5-10.1) mg/dL Magnesium (1.8-2.4) mg/dL Total Bilirubin 0.6 (0.2-1.0) mg/dL AST 85 H (15-37) IU/L ALT 62 (14-63) IU/L Alkaline Phosphatase 101 (46-116) U/L Total Protein 7.7 (6.4-8.2) g/dL Albumin 4.1 (3.4-5.0) g/dL Globulin 3.6 (2.6-4.0) g/dL Albumin/Globulin Ratio 1.1 (0.9-1.6) Lipase 241 (73-393) U/L Urine Opiates Screen (NEGATIVE) Ur Oxycodone Screen (NEGATIVE) Urine Methadone Screen (NEGATIVE) Ur Barbiturates Screen (NEGATIVE) Ur Phencyclidine Scrn (NEGATIVE) Ur Amphetamine Screen (NEGATIVE) U Methamphetamines Scrn (NEGATIVE) U Benzodiazepines Scrn (NEGATIVE) U Cocaine Metab Screen (NEGATIVE) U Marijuana (THC) Screen (NEGATIVE) Ethyl Alcohol 513 mg/dL Blood Type Antibody Screen 04/13/19 04/13/19 04/13/19 Range/Units 22:10 22:15 23:15 WBC (4.0-11.0) K/uL RBC (4.50-5.90) M/uL Hgb (13.0-17.0) g/dL Hct (38.0-50.0) % MCV (80.0-98.0) fL MCH (27.0-32.0) pg MCHC (31.0-37.0) g/dL RDW Std Deviation (28.0-62.0) fl RDW Coeff of Felix (11.0-15.0) % Plt Count (150-400) K/uL MPV (7.40-12.00) fL Neut % (Auto) (48.0-80.0) % Lymph % (Auto) (16.0-40.0) % [place] % (Auto) (0.0-15.0) % Eos % (Auto) (0.0-7.0) % Baso % (Auto) (0.0-1.5) % Neut # (Auto) (1.4-5.7) K/uL Lymph # (Auto) (0.6-2.4) K/uL [place] # (Auto) (0.0-0.8) K/uL Eos # (Auto) (0.0-0.7) K/uL Baso # (Auto) (0.0-0.1) K/uL Nucleated RBC % /100WBC Nucleated RBCs # K/uL INR Sodium (136-148) mmol/L Potassium (3.5-5.1) mmol/L Chloride (98-107) mmol/L Carbon Dioxide (21.0-32.0) mmol/L BUN (7.0-18.0) mg/dL Creatinine (0.8-1.3) mg/dL Est Cr Clr Drug Dosing Estimated GFR (MDRD) ml/min Glucose (74-106) mg/dL Calcium (8.5-10.1) mg/dL Magnesium 1.7 L (1.8-2.4) mg/dL Total Bilirubin (0.2-1.0) mg/dL AST (15-37) IU/L ALT (14-63) IU/L Alkaline Phosphatase (46-116) U/L Total Protein (6.4-8.2) g/dL Albumin (3.4-5.0) g/dL Globulin (2.6-4.0) g/dL Albumin/Globulin Ratio (0.9-1.6) Lipase (73-393) U/L Urine Opiates Screen NEGATIVE (NEGATIVE) Ur Oxycodone Screen NEGATIVE (NEGATIVE) Urine Methadone Screen NEGATIVE (NEGATIVE) Ur Barbiturates Screen NEGATIVE (NEGATIVE) Ur Phencyclidine Scrn NEGATIVE (NEGATIVE) Ur Amphetamine Screen NEGATIVE (NEGATIVE) U Methamphetamines Scrn NEGATIVE (NEGATIVE) U Benzodiazepines Scrn NEGATIVE (NEGATIVE) U Cocaine Metab Screen NEGATIVE (NEGATIVE) U Marijuana (THC) Screen POSITIVE (NEGATIVE) Ethyl Alcohol mg/dL Blood Type A POSITIVE Antibody Screen NEGATIVE Result Diagrams: 04/13/19 22:10 04/13/19 22:10 Sepsis Event Note - Evaluation Sepsis Screening Result: No Definite Risk - Focused Exam Vital Signs: Vital Signs Temp Pulse Resp BP BP Pulse Ox 04/14/19 01:00 37.0 C 24 H 113/70 91 L 04/14/19 00:45 36.6 C 101 H 20 131/77 95 04/14/19 00:04 36.6 C 94 20 130/82 94 L 04/13/19 23:49 106 H 139/95 H 93 L 04/13/19 23:39 95 139/88 04/13/19 23:19 104 H 135/90 96 04/13/19 23:04 98 132/77 97 04/13/19 22:43 75 124/80 97 04/13/19 22:17 105 H 26 H 138/90 94 L 04/13/19 22:11 36.7 C 105 H 18 152/102 H 93 L Date Exam was Performed: 04/14/19 Time Exam was Performed: 02:07 Problem List Initiated/Reviewed/Updated: Yes Orders Last 24hrs: Active Orders 24 hr Category Date Time Status Admission Status [Patient Status] [ADT] Stat ADT 04/13/19 23:55 Active Antiembolic Devices [RC] PER UNIT ROUTINE Care 04/14/19 02:04 Ordered Oxygen Therapy [RC] PRN Care 04/14/19 02:03 Ordered Up ad Bisi [RC] ASDIRECTED Care 04/14/19 02:03 Ordered VTE/DVT Education [RC] PER UNIT ROUTINE Care 04/14/19 02:03 Ordered Vital Signs [RC] Q4H Care 04/14/19 02:03 Ordered Regular Diet [DIET] Diet 04/14/19 Breakfast Ordered Chest 1V Frontal [CR] Stat Exams 04/13/19 22:34 Stop Req CBC WITH AUTO DIFF [HEME] AM Lab 04/14/19 05:11 Ordered COMPREHENSIVE METABOLIC PN,CMP [CHEM] AM Lab 04/14/19 05:11 Ordered Folic Acid Med 04/14/19 09:00 Ordered 1 mg PO DAILY LORazepam [Ativan] Med 04/14/19 02:02 Ordered See Protocol IVPUSH Q4H PRN Ondansetron [Zofran ODT] Med 04/14/19 02:03 Ordered 4 mg PO Q4H PRN Pantoprazole [ProTONIX IV] 80 mg Med 04/13/19 22:30 Active Sodium Chloride 0.9% [Normal Saline] 100 ml IV .Continuous Sodium Chloride 0.9% with KCl 40 mEq @ Enter Rate (1000 Med 04/14/19 02:15 Ordered mL) Sodium Chloride 0.9% with KCl [Normal Saline with 40 mEq KCl] 1,000 ml IV ASDIRECTED Thiamine [Vitamin B-1] Med 04/14/19 09:00 Ordered 100 mg PO DAILY Sequential Compression Device [OM.PC] Per Unit Routine Oth 04/14/19 02:04 Ordered Resuscitation Status Routine Resus Stat 04/14/19 02:03 Ordered Medication Orders Folic Acid (Folic Acid) 1 mg PO DAILY KIRSTY Pantoprazole Sodium 80 mg/ (Sodium Chloride) 100 mls @ 10 mls/hr IV .Continuous KIRSTY Last Admin: 04/13/19 22:55 Dose: 10 mls/hr Potassium Chloride/Sodium Chloride (Normal Saline With 40 Meq Kcl) 1,000 mls @ 150 mls/hr IV ASDIRECTED KIRSTY Stop: 04/14/19 08:54 Lorazepam (Ativan) 0 mg IVPUSH Q4H PRN; Protocol PRN Reason: CIWAA Ondansetron HCl (Zofran Odt) 4 mg PO Q4H PRN PRN Reason: nausea, able to take PO Thiamine HCl (Vitamin B-1) 100 mg PO DAILY KIRSTY Assessment/Plan Comment:: 38 yo male admitted for acute alcohol intoxication with alcoholic gastritis. We will treat with IV fluids and PPI. Patient is agreeable to detox. We will place on CIWAA protocol, thiamin and folic acid.
[2019-04-14] MEDS ORDERED: Sodium Chloride 0.9% with KCl 1,000 ML IV SCH (02:15)
--- NOTE | 2019-04-14 04:52 | PN ---
THC Physician - Brief Progress [id number]/02/2020 01:23[facility] Joss [place], [place] - EDUARDO (MARYELLEN) - EDUARDO BARROSRANDY MORAESVicenteDate of Service 04/14/2019 01:23HPI/Events o f Note Chart reviewed. On camera, the patient is resting in bed in NAD. Was using foul language earli er. Mr aOkes is a 38 yr old man presenting to the ED significantly intoxicated with alcohol. He state d that he had vomited blood but was unable to give any coherent information. NG was placed in the ED and lavaged with 1L of NS without any bloody return. He was started on Protonix bolus and drip, and r ec'd Thiamine.PMH: chornic ETOH use - recent psych admission 03/2019 for suicidal ideation and ETOH us e; bipolar disorder. Other conditions listed in EMR include HTN, DM, asthma, lung nodules. His home m ed list however only includes Quetinapine (unclear if the patient is taking it).Investigations review ed - pertinent: K 3.0, Mg 1.7, AST 85 rest of LFTs unremarkable. CBC unremarkable, Hgb 16.9 (same on 03/25/19, previously 12-16).UDS: THCA/P:1. Alcohol intoxication- Thiamine and Folate supplementation d aily.- CIWA protocol with Ativan prn as i expect he may have significant withdrawal symptoms.2. Possi ble UGIB- not confirmed on lavage- recheck H/H in am- is on Protonix IV bid.3. BIpolar disorder- wou ld resume Seroquel if able to take po.4. Underlying medical problems- monitor BP and treat prn.- foll ow glucose on labs and if hyperglycemic, will need qid glucose checks with coverage.5. DVT prophylaxi s - SCDs (once GIB ruled out, should start pharmacologic DVT prophylaxis).Interventions Major-Other: ETOH intoxication, UGIB, bipolar disorder 0 4:51
[2019-04-14 07:31] LABS: BLOOD UREA NITROGEN,BUN 6 mg/dL (7.0-18.0); CARBON DIOXIDE,CO2 23.8 mmol/L (21.0-32.0); CHLORIDE,CL 109 mmol/L (98-107); GLUCOSE RANDOM 69 mg/dL (74-106); POTASSIUM,K 3.5 mmol/L (3.5-5.1); SODIUM,NA 146 mmol/L (136-148)
[2019-04-14] MEDS ORDERED: Thiamine 100 MG Tab PO SCH (09:00)
[2019-04-14] MEDS ORDERED: Folic Acid 1 MG Tab PO SCH (09:00)
[2019-04-14 10:17] VITALS: BP 128/87
--- NOTE | 2019-04-14 15:17 | PCM.DCSUM1 ---
Discharge Summary - Hospital Course Free Text/Narrative:: 38 y/o male with history of alcohol abuse who presented to the ER complaining of hematemesis. NG tube placed in the ER was negative for blood. Admitted for acute alcohol intoxication. Alcohol level 500. He was started on CIWA monitoring with Ativan PRN. He was hydrated overnight. However, patient decided to leave AMA early the morning. He was offered Detox but he declined. He was advised to abstain from alcohol and any mood altering substances. - Discharge Data Discharge Date: 04/14/19 Discharge Disposition: Against Medical Advice 07 Condition: Fair - Referral to Home Health Primary Care Physician: Montez Cifuentes MD - Discharge Plan Home Medications: Home Meds QUEtiapine Fumarate [Quetiapine Fumarate] 50 mg PO ACBREAKFAST 09/11/18 [History ] Desvenlafaxine [Desvenlafaxine ER] 50 mg PO DAILY 04/14/19 [History] QUEtiapine Fumarate [Quetiapine Fumarate ER] 150 mg PO BEDTIME 04/14/19 [History ] Patient Handouts: Alcohol Intoxication, [id number] Referrals: [facility] [Outside] Montez Cifuentes MD [Primary Care Provider] - 04/15/19 1:30 pm (Bring photo ID and insurance card. Be there 15 minutes before appointment time. Call [phone] if unable to come.) - Discharge Summary/Plan Comment DC Time >30 min.: No - Patient Data Vitals - Most Recent: Last Vital Signs Temp 36.4 C 04/14/19 08:00 Pulse 101 H 04/14/19 00:45 Resp 14 04/14/19 09:00 BP 128/87 04/14/19 09:00 Pulse Ox 92 L 04/14/19 09:00 Weight - Most Recent: 78.018 kg I&O - Last 24 hours: Intake & Output 04/14/19 04/14/19 04/14/19 06:59 14:59 22:59 Intake Total 1117 667 Balance 1117 667 Lab Results - Last 24 hrs: Laboratory Results - last 24 hr 04/13/19 04/13/19 04/13/19 Range/Units 22:10 22:10 22:10 WBC 7.25 (4.0-11.0) K/uL RBC 5.08 (4.50-5.90) M/uL Hgb 16.9 (13.0-17.0) g/dL Hct 49.4 (38.0-50.0) % MCV 97.2 (80.0-98.0) fL MCH 33.3 H (27.0-32.0) pg MCHC 34.2 (31.0-37.0) g/dL RDW Std Deviation 55.9 (28.0-62.0) fl RDW Coeff of Felix 16 H (11.0-15.0) % Plt Count 224 (150-400) K/uL MPV 10.00 (7.40-12.00) fL Neut % (Auto) 44.2 L (48.0-80.0) % Lymph % (Auto) 41.9 H (16.0-40.0) % [place] % (Auto) 12.7 (0.0-15.0) % Eos % (Auto) 0.6 (0.0-7.0) % Baso % (Auto) 0.6 (0.0-1.5) % Neut # (Auto) 3.2 (1.4-5.7) K/uL Lymph # (Auto) 3.0 H (0.6-2.4) K/uL [place] # (Auto) 0.9 H (0.0-0.8) K/uL Eos # (Auto) 0.0 (0.0-0.7) K/uL Baso # (Auto) 0.0 (0.0-0.1) K/uL Nucleated RBC % 0.0 /100WBC Nucleated RBCs # 0 K/uL INR 0.96 Sodium 142 (136-148) mmol/L Potassium 3.0 L (3.5-5.1) mmol/L Chloride 101 (98-107) mmol/L Carbon Dioxide 23.8 (21.0-32.0) mmol/L BUN 7 (7.0-18.0) mg/dL Creatinine 0.8 (0.8-1.3) mg/dL Est Cr Clr Drug Dosing TNP Estimated GFR (MDRD) > 60.0 ml/min Glucose 101 (74-106) mg/dL Calcium 9.7 (8.5-10.1) mg/dL Magnesium (1.8-2.4) mg/dL Total Bilirubin 0.6 (0.2-1.0) mg/dL AST 85 H (15-37) IU/L ALT 62 (14-63) IU/L Alkaline Phosphatase 101 (46-116) U/L Total Protein 7.7 (6.4-8.2) g/dL Albumin 4.1 (3.4-5.0) g/dL Globulin 3.6 (2.6-4.0) g/dL Albumin/Globulin Ratio 1.1 (0.9-1.6) Lipase 241 (73-393) U/L Urine Opiates Screen (NEGATIVE) Ur Oxycodone Screen (NEGATIVE) Urine Methadone Screen (NEGATIVE) Ur Barbiturates Screen (NEGATIVE) Ur Phencyclidine Scrn (NEGATIVE) Ur Amphetamine Screen (NEGATIVE) U Methamphetamines Scrn (NEGATIVE) U Benzodiazepines Scrn (NEGATIVE) U Cocaine Metab Screen (NEGATIVE) U Marijuana (THC) Screen (NEGATIVE) Ethyl Alcohol 513 mg/dL Blood Type Antibody Screen 04/13/19 04/13/19 04/13/19 Range/Units 22:10 22:15 23:15 WBC (4.0-11.0) K/uL RBC (4.50-5.90) M/uL Hgb (13.0-17.0) g/dL Hct (38.0-50.0) % MCV (80.0-98.0) fL MCH (27.0-32.0) pg MCHC (31.0-37.0) g/dL RDW Std Deviation (28.0-62.0) fl RDW Coeff of Felix (11.0-15.0) % Plt Count (150-400) K/uL MPV (7.40-12.00) fL Neut % (Auto) (48.0-80.0) % Lymph % (Auto) (16.0-40.0) % [place] % (Auto) (0.0-15.0) % Eos % (Auto) (0.0-7.0) % Baso % (Auto) (0.0-1.5) % Neut # (Auto) (1.4-5.7) K/uL Lymph # (Auto) (0.6-2.4) K/uL [place] # (Auto) (0.0-0.8) K/uL Eos # (Auto) (0.0-0.7) K/uL Baso # (Auto) (0.0-0.1) K/uL Nucleated RBC % /100WBC Nucleated RBCs # K/uL INR Sodium (136-148) mmol/L Potassium (3.5-5.1) mmol/L Chloride (98-107) mmol/L Carbon Dioxide (21.0-32.0) mmol/L BUN (7.0-18.0) mg/dL Creatinine (0.8-1.3) mg/dL Est Cr Clr Drug Dosing Estimated GFR (MDRD) ml/min Glucose (74-106) mg/dL Calcium (8.5-10.1) mg/dL Magnesium 1.7 L (1.8-2.4) mg/dL Total Bilirubin (0.2-1.0) mg/dL AST (15-37) IU/L ALT (14-63) IU/L Alkaline Phosphatase (46-116) U/L Total Protein (6.4-8.2) g/dL Albumin (3.4-5.0) g/dL Globulin (2.6-4.0) g/dL Albumin/Globulin Ratio (0.9-1.6) Lipase (73-393) U/L Urine Opiates Screen NEGATIVE (NEGATIVE) Ur Oxycodone Screen NEGATIVE (NEGATIVE) Urine Methadone Screen NEGATIVE (NEGATIVE) Ur Barbiturates Screen NEGATIVE (NEGATIVE) Ur Phencyclidine Scrn NEGATIVE (NEGATIVE) Ur Amphetamine Screen NEGATIVE (NEGATIVE) U Methamphetamines Scrn NEGATIVE (NEGATIVE) U Benzodiazepines Scrn NEGATIVE (NEGATIVE) U Cocaine Metab Screen NEGATIVE (NEGATIVE) U Marijuana (THC) Screen POSITIVE (NEGATIVE) Ethyl Alcohol mg/dL Blood Type A POSITIVE Antibody Screen NEGATIVE 04/14/19 04/14/19 04/14/19 Range/Units 07:05 07:05 07:05 WBC 4.68 (4.0-11.0) K/uL RBC 4.47 L (4.50-5.90) M/uL Hgb 14.3 (13.0-17.0) g/dL Hct 44.2 (38.0-50.0) % MCV 98.9 H (80.0-98.0) fL MCH 32.0 (27.0-32.0) pg MCHC 32.4 (31.0-37.0) g/dL RDW Std Deviation 57.6 (28.0-62.0) fl RDW Coeff of Felix 16 H (11.0-15.0) % Plt Count 171 (150-400) K/uL MPV 9.50 (7.40-12.00) fL Neut % (Auto) 53.2 (48.0-80.0) % Lymph % (Auto) 38.9 (16.0-40.0) % [place] % (Auto) 6.0 (0.0-15.0) % Eos % (Auto) 1.3 (0.0-7.0) % Baso % (Auto) 0.6 (0.0-1.5) % Neut # (Auto) 2.5 (1.4-5.7) K/uL Lymph # (Auto) 1.8 (0.6-2.4) K/uL [place] # (Auto) 0.3 (0.0-0.8) K/uL Eos # (Auto) 0.1 (0.0-0.7) K/uL Baso # (Auto) 0.0 (0.0-0.1) K/uL Nucleated RBC % 0.0 /100WBC Nucleated RBCs # 0 K/uL INR Sodium 146 (136-148) mmol/L Potassium 3.5 (3.5-5.1) mmol/L Chloride 109 H (98-107) mmol/L Carbon Dioxide 23.8 (21.0-32.0) mmol/L BUN 6 L (7.0-18.0) mg/dL Creatinine 0.7 L (0.8-1.3) mg/dL Est Cr Clr Drug Dosing 144.49 Estimated GFR (MDRD) > 60.0 ml/min Glucose 69 L (74-106) mg/dL Calcium 7.6 L (8.5-10.1) mg/dL Magnesium 1.6 L (1.8-2.4) mg/dL Total Bilirubin 0.5 (0.2-1.0) mg/dL AST 69 H (15-37) IU/L ALT 51 (14-63) IU/L Alkaline Phosphatase 76 (46-116) U/L Total Protein 6.1 L (6.4-8.2) g/dL Albumin 3.2 L (3.4-5.0) g/dL Globulin 2.9 (2.6-4.0) g/dL Albumin/Globulin Ratio 1.1 (0.9-1.6) Lipase (73-393) U/L Urine Opiates Screen (NEGATIVE) Ur Oxycodone Screen (NEGATIVE) Urine Methadone Screen (NEGATIVE) Ur Barbiturates Screen (NEGATIVE) Ur Phencyclidine Scrn (NEGATIVE) Ur Amphetamine Screen (NEGATIVE) U Methamphetamines Scrn (NEGATIVE) U Benzodiazepines Scrn (NEGATIVE) U Cocaine Metab Screen (NEGATIVE) U Marijuana (THC) Screen (NEGATIVE) Ethyl Alcohol mg/dL Blood Type Antibody Screen Med Orders - Current: Current Medications Discontinued Medications Folic Acid (Folic Acid) 1 mg PO DAILY KIRSTY Last Admin: 04/14/19 08:58 Dose: 1 mg Pantoprazole Sodium 80 mg/ (Sodium Chloride) 20 mls @ 420 mls/hr IVPUSH ONETIME ONE Stop: 04/13/19 22:20 Last Admin: 04/13/19 22:46 Dose: 420 mls/hr Sodium Chloride (Normal Saline) 1,000 mls @ 1,000 mls/hr IV .Bolus ONE Stop: 04/13/19 23:17 Last Admin: 04/13/19 22:43 Dose: 1,000 mls/hr Thiamine HCl 100 mg/ Sodium (Chloride) 101 mls @ 202 mls/hr IV ONETIME ONE Stop: 04/13/19 22:18 Last Admin: 04/13/19 22:55 Dose: 202 mls/hr Pantoprazole Sodium 80 mg/ (Sodium Chloride) 100 mls @ 10 mls/hr IV .Continuous KIRSTY Last Admin: 04/13/19 22:55 Dose: 10 mls/hr Magnesium Sulfate 2 gm/ Premix 50 mls @ 50 mls/hr IV ONETIME ONE Stop: 04/14/19 01:10 Last Admin: 04/14/19 00:15 Dose: 50 mls/hr Potassium Chloride/Sodium Chloride (Normal Saline With 40 Meq Kcl) 1,000 mls @ 150 mls/hr IV ASDIRECTED KIRSTY Stop: 04/14/19 08:54 Last Admin: 04/14/19 02:12 Dose: 150 mls/hr Lorazepam (Ativan) 0 mg IVPUSH Q4H PRN; Protocol PRN Reason: CIWAA Last Admin: 04/14/19 03:33 Dose: 1 mg Ondansetron HCl (Zofran) 4 mg IVPUSH ONETIME ONE Stop: 04/13/19 22:19 Last Admin: 04/13/19 22:46 Dose: 4 mg Ondansetron HCl (Zofran Odt) 4 mg PO Q4H PRN PRN Reason: nausea, able to take PO Pantoprazole Sodium (Protonix Iv) Confirm Administered Dose 80 mg .ROUTE .STK -MED ONE Stop: 04/13/19 22:31 Last Admin: 04/13/19 22:55 Dose: Not Given Thiamine HCl (Vitamin B-1) 100 mg PO DAILY [facility] Last Admin: 04/14/19 08:58 Dose: 100 mg
== END 2019-04-14 09:50 | disposition left against medical advice (07) | DRG 894 ==
LOC: MW.ED 22:08 → MW.ICU 23:55
PROVIDERS: ADMIT Internal Medicine; ATTEND Internal Medicine
DX: F10.129 Alcohol abuse with intoxication, unspecified (principal); Y90.8 Blood alcohol level of 240 mg/100 ml or more; K29.20 Alcoholic gastritis without bleeding; E78.00 Pure hypercholesterolemia, unspecified; I10 Essential (primary) hypertension; J45.909 Unspecified asthma, uncomplicated; F41.9 Anxiety disorder, unspecified; F31.9 Bipolar disorder, unspecified; E11.9 Type 2 diabetes mellitus without complications; F17.210 Nicotine dependence, cigarettes, uncomplicated; Z79.899 Other long term (current) drug therapy; Z88.0 Allergy status to penicillin; Z86.73 Personal history of transient ischemic attack (TIA), and cerebral infarction without residual deficits
CPT/HCPCS: 36415; 80053; 80305-QW; 80307; 83690; 83735; 85025; 85610; 86850; 86900; 86901; 93005; 96365; 96368; 96375; 96376; 99285-25; A9270-GY; C9113; J2060; J2405; J3411; J3475; J3480; J7030; J7050

== ENCOUNTER 2019-06-04 15:15 | Emergency (ER) | payer MEDICAID ==
[2019-06-04] MEDS ORDERED: Naloxone 0.4 MG/ML Syringe IVPUSH ONE (15:20)
[2019-06-04] MEDS ORDERED: Rocuronium 50 MG/5 ML Vial IVPUSH ONE (15:25)
--- NOTE | 2019-06-04 15:34 | EDM.PDOC ---
ED HPI GENERAL MEDICAL PROBLEM - General Chief Complaint: Respiratory Problem Stated Complaint: EMS ARRIVAL Time Seen by Provider: 06/04/19 15:15 Source of Information: Reports: EMS Notes Reviewed History Limitations: Reports: Altered Mental Status, Intoxication, Respiratory Distress - History of Present Illness INITIAL COMMENTS - FREE TEXT/NARRATIVE: 38-year-old male presents the emergency room found unresponsive face down on the grass. Patient apparently was found head down after drinking 1/5 of Everclear. The police was called. They called the paramedics. Onset: Today, Unknown/Unsure Duration: Hour(s):, Getting Worse Quality: Reports: Other (Unable to breathe patient intubated) Severity: Severe Associated Symptoms: Reports: No Other Symptoms - Related Data Allergies Allergy/AdvReac Type Severity Reaction Status Date / Time Penicillins Allergy Hives Verified 04/13/19 22:16 Home Meds: Home Meds QUEtiapine Fumarate [Quetiapine Fumarate] 50 mg PO ACBREAKFAST 09/11/18 [History ] Desvenlafaxine [Desvenlafaxine ER] 50 mg PO DAILY 04/14/19 [History] QUEtiapine Fumarate [Quetiapine Fumarate ER] 150 mg PO BEDTIME 04/14/19 [History ] Past Medical History - Past Health History Medical/Surgical History: Denies Medical/Surgical History HEENT History: Reports: Other (See Below) Other HEENT History: teeth missing, broken Cardiovascular History: Reports: High Cholesterol, Hypertension Respiratory History: Reports: Asthma, Other (See Below) Other Respiratory History: nodes on lungs Gastrointestinal History: Reports: None Genitourinary History: Reports: None Musculoskeletal History: Reports: Fracture Neurological History: Reports: CVA Other Neuro History: Stroke last week Psychiatric History: Reports: Anxiety, Bipolar Other Psychiatric History: Unable to verify d/t severe intoxication Endocrine/Metabolic History: Reports: Diabetes, Type II Hematologic History: Reports: None Immunologic History: Reports: None Oncologic (Cancer) History: Reports: None Dermatologic History: Reports: Cellulitis - Infectious Disease History Infectious Disease History: Reports: None - Past Surgical History Head Surgeries/Procedures: Reports: None Other Respiratory Surgeries/Procedures: Unable to verify -- doesn't answers to specific questions Other Endocrine Surgeries/Procedures: Unable to verify - not answering Other Neurological Surgeries/Procedures: Unable to verify -- not answering Musculoskeletal Surgical History: Reports: Other (See Below) Other Musculoskeletal Surgeries/Procedures:: Unable to verify -- not answering Social & Family History - Family History Family Medical History: Noncontributory - Caffeine Use Caffeine Use: Reports: Coffee Caffeine Use Comment: 8-10cups/day ED ROS GENERAL - Review of Systems Review Of Systems: See Below (Obtunded unable to give a history with review of system) Constitutional: Reports: No Symptoms HEENT: Reports: No Symptoms Respiratory: Reports: No Symptoms Cardiovascular: Reports: No Symptoms Endocrine: Reports: No Symptoms GI/Abdominal: Reports: No Symptoms ED EXAM, GENERAL - Physical Exam Exam: See Below Reason Not Obtained: Patient intubated Exam Limited By: Respiratory Distress General Appearance: Alert, WD/WN, Obtunded, Other (Patient not breathing immediately intubated) Eye Exam: Bilateral Eye: Normal Fundi, Normal Inspection Ears: Normal External Exam, Normal Canal, Normal TMs Ear Exam: Bilateral Ear: Auricle Normal, Canal Normal Nose: Normal Inspection, Normal Mucosa Throat/Mouth: Normal Inspection, Normal Lips Head: Atraumatic Neck: Normal Inspection Respiratory/Chest: Decreased Breath Sounds, Other ( not Breathing or protecting airway) Cardiovascular: Normal Peripheral Pulses GI/Abdominal: Normal Bowel Sounds (Male) Exam: No Hernia, Normal Inspection, Deferred Rectal (Males) Exam: Deferred Back Exam: Normal Inspection Extremities: Normal Inspection Neurological: Unresponsive Skin Exam: Warm, Dry ED RESPIRATORY PROCEDURES - Endotracheal Intubation ET Intubation Indication: Airway Protection Preparation: Suction Anesthesia Meds: Etomidate, Succinylcholine Placement: Cuffed Cords Visualized: Grade 4 Number of Attempts: 1 Confirmed By: CO2 Indicator, Bilateral Breath Sounds, Chest Xray Tube Secured By: By Provider Endotracheal Intubation Comment: An antibiotic to 8.5. Good airway. Able to see cords use ofglidoleidoscope. Patient given etomidate and succinylcholine Course - Vital Signs Text/Narrative:: 38-year-old male found unresponsive with his face down in the ground. Patient apparently took 1/5 of Everclear and his friend called the police the police called the paramedics and found the patient behind still were unresponsive. Upon evaluation the patient was stated to have [place] coma scale of 3. Patient arrived in the emergency room obtunded not protecting his airway. Patient was intubated immediately in the emergency room size 8.5 using kaleidoscope after receiving etomidate and succinylcholine. He was taken for CT scan of the head chest abdomen. And accepted to [facility] level was 570. Patient's chest x-ray was normal. E-Tube in good placement transferred via air - Orders/Labs/Meds Orders: Active Orders 24 hr Category Date Time Status Blood Glucose Check, Bedside [RC] ONETIME Care 06/04/19 15:20 Active EKG Documentation Completion [RC] STAT Care 06/04/19 15:16 Active EKG Documentation Completion [RC] STAT Care 06/04/19 15:22 Active CULTURE BLOOD [BC] Stat Lab 06/04/19 15:26 Received CULTURE BLOOD [BC] Stat Lab 06/04/19 15:35 Received Blood Culture x2 Reflex Set [OM.PC] Stat Oth 06/04/19 15:18 Ordered Labs: Laboratory Tests 06/04/19 06/04/19 06/04/19 Range/Units 15:16 15:16 15:20 WBC 8.10 (4.0-11.0) K/uL RBC 4.71 (4.50-5.90) M/uL Hgb 15.6 (13.0-17.0) g/dL Hct 46.5 (38.0-50.0) % MCV 98.7 H (80.0-98.0) fL MCH 33.1 H (27.0-32.0) pg MCHC 33.5 (31.0-37.0) g/dL RDW Std Deviation 49.5 (28.0-62.0) fl RDW Coeff of Felix 14 (11.0-15.0) % Plt Count 171 (150-400) K/uL MPV 9.90 (7.40-12.00) fL Neut % (Auto) 56.4 (48.0-80.0) % Lymph % (Auto) 31.1 (16.0-40.0) % [place] % (Auto) 10.7 (0.0-15.0) % Eos % (Auto) 1.1 (0.0-7.0) % Baso % (Auto) 0.7 (0.0-1.5) % Neut # (Auto) 4.6 (1.4-5.7) K/uL Lymph # (Auto) 2.5 H (0.6-2.4) K/uL [place] # (Auto) 0.9 H (0.0-0.8) K/uL Eos # (Auto) 0.1 (0.0-0.7) K/uL Baso # (Auto) 0.1 (0.0-0.1) K/uL Nucleated RBC % 0.0 /100WBC Nucleated RBCs # 0 K/uL ABG pH (7.35-7.45) ABG pCO2 (35-45) mmHG ABG pO2 (75-100) mmHG ABG HCO3 ABG Total CO2 ABG Base Excess ABG Carboxyhemoglobin (0-15) % Lactate (0.20-2.00) mmol/L Sodium (136-148) mmol/L Potassium (3.5-5.1) mmol/L Chloride (98-107) mmol/L Carbon Dioxide (21.0-32.0) mmol/L BUN (7.0-18.0) mg/dL Creatinine (0.8-1.3) mg/dL Est Cr Clr Drug Dosing Estimated GFR (MDRD) ml/min Glucose (74-106) mg/dL POC Glucose (60-110) mg/dL Calcium (8.5-10.1) mg/dL Magnesium (1.8-2.4) mg/dL Total Bilirubin (0.2-1.0) mg/dL AST (15-37) IU/L ALT (14-63) IU/L Alkaline Phosphatase (46-116) U/L Creatine Kinase (26-308) U/L Troponin I (0.000-0.056) ng/mL Total Protein (6.4-8.2) g/dL Albumin (3.4-5.0) g/dL Globulin (2.6-4.0) g/dL Albumin/Globulin Ratio (0.9-1.6) TSH 3rd Generation (0.36-3.74) uIU/mL Urine Color YELLOW Urine Appearance CLEAR Urine pH 6.5 (5.0-8.0) Ur Specific Knox <= 1.005 (1.001-1.035) Urine Protein NEGATIVE (NEGATIVE) mg/dL Urine Glucose (UA) NEGATIVE (NEGATIVE) mg/dL Urine Ketones NEGATIVE (NEGATIVE) mg/dL Urine Occult Blood NEGATIVE (NEGATIVE) Urine Nitrite NEGATIVE (NEGATIVE) Urine Bilirubin NEGATIVE (NEGATIVE) Urine Urobilinogen 0.2 (<2.0) EU/dL Ur Leukocyte Esterase TRACE H (NEGATIVE) Urine RBC 0-1 (0-2/HPF) Urine WBC 0-2 (0-5/HPF) Ur Epithelial Cells RARE (NONE-FEW) Urine Bacteria FEW (NEGATIVE) Salicylates (0-20) mg/dL Urine Opiates Screen NEGATIVE (NEGATIVE) Ur Oxycodone Screen NEGATIVE (NEGATIVE) Urine Methadone Screen NEGATIVE (NEGATIVE) Acetaminophen ug/mL Ur Barbiturates Screen NEGATIVE (NEGATIVE) Ur Phencyclidine Scrn NEGATIVE (NEGATIVE) Ur Amphetamine Screen NEGATIVE (NEGATIVE) U Methamphetamines Scrn NEGATIVE (NEGATIVE) U Benzodiazepines Scrn NEGATIVE (NEGATIVE) U Cocaine Metab Screen NEGATIVE (NEGATIVE) U Marijuana (THC) Screen POSITIVE (NEGATIVE) Ethyl Alcohol mg/dL 06/04/19 06/04/19 06/04/19 Range/Units 15:20 15:20 15:20 WBC (4.0-11.0) K/uL RBC (4.50-5.90) M/uL Hgb (13.0-17.0) g/dL Hct (38.0-50.0) % MCV (80.0-98.0) fL MCH (27.0-32.0) pg MCHC (31.0-37.0) g/dL RDW Std Deviation (28.0-62.0) fl RDW Coeff of Felix (11.0-15.0) % Plt Count (150-400) K/uL MPV (7.40-12.00) fL Neut % (Auto) (48.0-80.0) % Lymph % (Auto) (16.0-40.0) % [place] % (Auto) (0.0-15.0) % Eos % (Auto) (0.0-7.0) % Baso % (Auto) (0.0-1.5) % Neut # (Auto) (1.4-5.7) K/uL Lymph # (Auto) (0.6-2.4) K/uL [place] # (Auto) (0.0-0.8) K/uL Eos # (Auto) (0.0-0.7) K/uL Baso # (Auto) (0.0-0.1) K/uL Nucleated RBC % /100WBC Nucleated RBCs # K/uL ABG pH (7.35-7.45) ABG pCO2 (35-45) mmHG ABG pO2 (75-100) mmHG ABG HCO3 ABG Total CO2 ABG Base Excess ABG Carboxyhemoglobin 5.3 (0-15) % Lactate 1.9 (0.20-2.00) mmol/L Sodium 146 (136-148) mmol/L Potassium 3.0 L (3.5-5.1) mmol/L Chloride 107 (98-107) mmol/L Carbon Dioxide 24.6 (21.0-32.0) mmol/L BUN 6 L (7.0-18.0) mg/dL Creatinine 0.6 L (0.8-1.3) mg/dL Est Cr Clr Drug Dosing TNP Estimated GFR (MDRD) > 60.0 ml/min Glucose 121 H (74-106) mg/dL POC Glucose (60-110) mg/dL Calcium 7.8 L (8.5-10.1) mg/dL Magnesium 2.1 (1.8-2.4) mg/dL Total Bilirubin 0.3 (0.2-1.0) mg/dL AST 83 H (15-37) IU/L ALT 81 H (14-63) IU/L Alkaline Phosphatase 75 (46-116) U/L Creatine Kinase 157 (26-308) U/L Troponin I (0.000-0.056) ng/mL Total Protein 6.2 L (6.4-8.2) g/dL Albumin 3.2 L (3.4-5.0) g/dL Globulin 3.0 (2.6-4.0) g/dL Albumin/Globulin Ratio 1.1 (0.9-1.6) TSH 3rd Generation 1.13 (0.36-3.74) uIU/mL Urine Color Urine Appearance Urine pH (5.0-8.0) Ur Specific Knox (1.001-1.035) Urine Protein (NEGATIVE) mg/dL Urine Glucose (UA) (NEGATIVE) mg/dL Urine Ketones (NEGATIVE) mg/dL Urine Occult Blood (NEGATIVE) Urine Nitrite (NEGATIVE) Urine Bilirubin (NEGATIVE) Urine Urobilinogen (<2.0) EU/dL Ur Leukocyte Esterase (NEGATIVE) Urine RBC (0-2/HPF) Urine WBC (0-5/HPF) Ur Epithelial Cells (NONE-FEW) Urine Bacteria (NEGATIVE) Salicylates 1.7 (0-20) mg/dL Urine Opiates Screen (NEGATIVE) Ur Oxycodone Screen (NEGATIVE) Urine Methadone Screen (NEGATIVE) Acetaminophen <2.0 ug/mL Ur Barbiturates Screen (NEGATIVE) Ur Phencyclidine Scrn (NEGATIVE) Ur Amphetamine Screen (NEGATIVE) U Methamphetamines Scrn (NEGATIVE) U Benzodiazepines Scrn (NEGATIVE) U Cocaine Metab Screen (NEGATIVE) U Marijuana (THC) Screen (NEGATIVE) Ethyl Alcohol 560 mg/dL 06/04/19 06/04/19 06/04/19 Range/Units 15:20 15:20 15:22 WBC (4.0-11.0) K/uL RBC (4.50-5.90) M/uL Hgb (13.0-17.0) g/dL Hct (38.0-50.0) % MCV (80.0-98.0) fL MCH (27.0-32.0) pg MCHC (31.0-37.0) g/dL RDW Std Deviation (28.0-62.0) fl RDW Coeff of Felix (11.0-15.0) % Plt Count (150-400) K/uL MPV (7.40-12.00) fL Neut % (Auto) (48.0-80.0) % Lymph % (Auto) (16.0-40.0) % [place] % (Auto) (0.0-15.0) % Eos % (Auto) (0.0-7.0) % Baso % (Auto) (0.0-1.5) % Neut # (Auto) (1.4-5.7) K/uL Lymph # (Auto) (0.6-2.4) K/uL [place] # (Auto) (0.0-0.8) K/uL Eos # (Auto) (0.0-0.7) K/uL Baso # (Auto) (0.0-0.1) K/uL Nucleated RBC % /100WBC Nucleated RBCs # K/uL ABG pH 7.292 L (7.35-7.45) ABG pCO2 54 H (35-45) mmHG ABG pO2 501 H (75-100) mmHG ABG HCO3 26 ABG Total CO2 28 ABG Base Excess -2 ABG Carboxyhemoglobin (0-15) % Lactate (0.20-2.00) mmol/L Sodium (136-148) mmol/L Potassium (3.5-5.1) mmol/L Chloride (98-107) mmol/L Carbon Dioxide (21.0-32.0) mmol/L BUN (7.0-18.0) mg/dL Creatinine (0.8-1.3) mg/dL Est Cr Clr Drug Dosing Estimated GFR (MDRD) ml/min Glucose (74-106) mg/dL POC Glucose 86 (60-110) mg/dL Calcium (8.5-10.1) mg/dL Magnesium (1.8-2.4) mg/dL Total Bilirubin (0.2-1.0) mg/dL AST (15-37) IU/L ALT (14-63) IU/L Alkaline Phosphatase (46-116) U/L Creatine Kinase (26-308) U/L Troponin I < 0.050 (0.000-0.056) ng/mL Total Protein (6.4-8.2) g/dL Albumin (3.4-5.0) g/dL Globulin (2.6-4.0) g/dL Albumin/Globulin Ratio (0.9-1.6) TSH 3rd Generation (0.36-3.74) uIU/mL Urine Color Urine Appearance Urine pH (5.0-8.0) Ur Specific Knox (1.001-1.035) Urine Protein (NEGATIVE) mg/dL Urine Glucose (UA) (NEGATIVE) mg/dL Urine Ketones (NEGATIVE) mg/dL Urine Occult Blood (NEGATIVE) Urine Nitrite (NEGATIVE) Urine Bilirubin (NEGATIVE) Urine Urobilinogen (<2.0) EU/dL Ur Leukocyte Esterase (NEGATIVE) Urine RBC (0-2/HPF) Urine WBC (0-5/HPF) Ur Epithelial Cells (NONE-FEW) Urine Bacteria (NEGATIVE) Salicylates (0-20) mg/dL Urine Opiates Screen (NEGATIVE) Ur Oxycodone Screen (NEGATIVE) Urine Methadone Screen (NEGATIVE) Acetaminophen ug/mL Ur Barbiturates Screen (NEGATIVE) Ur Phencyclidine Scrn (NEGATIVE) Ur Amphetamine Screen (NEGATIVE) U Methamphetamines Scrn (NEGATIVE) U Benzodiazepines Scrn (NEGATIVE) U Cocaine Metab Screen (NEGATIVE) U Marijuana (THC) Screen (NEGATIVE) Ethyl Alcohol mg/dL Meds: Medications Discontinued Medications Generic Name Dose Route Start Last Admin Trade Name Freq PRN Reason Stop Dose Admin Etomidate 40 mg 06/04/19 17:00 Amidate IVPUSH 06/04/19 17:01 .STK-MED ONE Iopamidol 100 ml 06/04/19 16:30 06/04/19 16:30 Isovue-370 (76%) IVPUSH 06/04/19 16:31 100 ml ONETIME STA Administration Naloxone HCl 0.4 mg 06/04/19 15:20 Narcan IVPUSH 06/04/19 15:21 ONETIME ONE Rocuronium Strum 30 mg 06/04/19 15:25 Zemuron IVPUSH 06/04/19 15:26 ONETIME ONE Rocuronium Strum 100 mg 06/04/19 17:00 Zemuron .ROUTE 06/04/19 17:01 .STK-MED ONE Succinylcholine Chloride 200 mg 06/04/19 17:00 Quelicin .ROUTE 06/04/19 17:01 .STK-MED ONE Departure - Departure Time of Disposition: 19:42 Disposition: DC/Tfer to Acute Hospital 02 Clinical Impression: Respiratory arrest, Ethyl alcohol poisoning - Discharge Information Referrals: PCP,Unobtain [Primary Care Provider] - Forms: ED Department Discharge Sepsis Event Note - Focused Exam Date Exam was Performed: 06/04/19 Time Exam was Performed: 19:48
--- NOTE | 2019-06-04 15:41 | CR ---
Chest: Frontal view of the chest was obtained. Comparison: Previous chest x-ray of 03/25/19. Heart size appears at the upper limits of normal but accentuated from portable technique. Nodular density is noted within the left lateral costophrenic angle which is not seen on prior study and most likely represent nodular area of atelectasis. Lungs otherwise are clear. Endotracheal tube lies at the lower level the clavicles. Nasogastric tube courses below the diaphragm into the stomach. Bony structures are grossly intact. Impression: 1. Satisfactory position of tubes and catheters. 2. Minimal nodular area of atelectasis believed to be present within the left base. 3. No other acute abnormality is seen. Diagnostic code #2 This report was dictated in MDT
[2019-06-04 16:06] LABS: ACETAMINOPHEN <2.0 ug/mL; BLOOD UREA NITROGEN,BUN 6 mg/dL (7.0-18.0); CARBON DIOXIDE,CO2 24.6 mmol/L (21.0-32.0); CHLORIDE,CL 107 mmol/L (98-107); GLUCOSE RANDOM 121 mg/dL (74-106); SODIUM,NA 146 mmol/L (136-148)
[2019-06-04] MEDS ORDERED: Iopamidol 755 Mg/ML 100 ML Bottle IVPUSH STA (16:30)
--- NOTE | 2019-06-04 16:40 | CT ---
CT cervical spine Technique: Multiple axial sections were obtained from above C1 inferiorly to the bottom of T4. Reconstructed sagittal and coronal images were obtained. Findings: Mild disc space narrowing is noted at C4-5 and C5-6. Anterior osteophytes are noted at C3-4 and more prominently at C4-5 and C5-6. Vertebral body heights are maintained. Posterior elements are maintained. No fracture is appreciated. No bony central or bony neural foraminal stenosis is seen. No abnormal subluxation is seen. Partially visualized nasogastric tube and endotracheal tube are noted. Impression: 1. Mild degenerative change as noted above. Partially visualized endotracheal tube and nasogastric tube. 2. Nothing acute is appreciated on CT study of the cervical spine. Diagnostic code #2 This report was dictated in MDT
--- NOTE | 2019-06-04 16:40 | CT ---
Head CT Technique: Multiple axial sections through the brain were obtained. Intravenous contrast was not utilized. Comparison: Prior head CT study of 01/05/16. Findings: Ventricles along with basal cisterns and sulci over the convexities are within normal limits for the patient's age. No abnormal parenchymal densities are seen. No evidence of intracranial hemorrhage. No midline shift or mass-effect is seen. Bone window settings were reviewed which shows no acute calvarial abnormality. Visualized mastoid sinuses show nothing acute. Mild mucosal thickening is seen within the right maxillary, moderate mucosal thickening is seen within the left maxillary and moderate mucosal thickening is seen within the ethmoid sinuses. Mild mucosal thickening is noted within the right frontal sinus. Partially visualized endotracheal tube and nasogastric tube are noted. Impression: 1. Sinus disease. If patient has no symptoms of acute sinusitis, findings most likely are chronic. 2. No acute intracranial abnormality is identified. Diagnostic code #3 This report was dictated in MDT
--- NOTE | 2019-06-04 16:40 | CT ---
CT chest Technique: Multiple axial sections through the chest were obtained. Intravenous contrast was utilized. Reconstructed coronal and sagittal images were obtained. Comparison: No prior chest CT study, prior chest x-ray performed earlier on the same day (3:20 PM). Aorta shows no aneurysm. Mediastinum and hilar region show no adenopathy. Endotracheal tube is seen. Tip lies above the darron. Nasogastric tube courses into the stomach. Visualized upper abdominal structures shows no gross abnormality other than a small to moderate sized hiatal hernia. No pericardial thickening is seen. Lung window settings were reviewed. Bullae are seen adjacent to the mediastinum within both upper lungs. Other emphysematous change is also noted which is most prominent within both upper lungs. Lungs show no acute parenchymal process. Bone window settings were reviewed which shows no acute osseous finding. Impression: 1. Emphysematous change as noted above. 2. Tip of endotracheal tube above the darron. Nasogastric tube with tip projecting within the stomach. 3. No acute abnormality is otherwise appreciated. Diagnostic code #2 This report was dictated in MDT
[2019-06-04] MEDS ORDERED: Succinylcholine 200 MG/10 ML MDV ONE (17:00)
[2019-06-04] MEDS ORDERED: Rocuronium 100 MG/10 ML MDV ONE (17:00)
[2019-06-04] MEDS ORDERED: Etomidate 2 MG/ML 20 ML SDV IVPUSH ONE (17:00)
--- NOTE | 2019-06-04 18:48 | CT ---
CT abdomen and pelvis Technique: Multiple axial sections were obtained from above the dome of the diaphragm inferiorly through the pubic symphysis. Intravenous contrast was utilized. No oral contrast was given. Artifact is noted from the patient's arms being along his side. Comparison: No prior abdominal imaging is available. Findings: Cyst or bulla is noted adjacent to the right heart within the right middle lobe. Fatty infiltration is seen within the liver. Vague liver lesion noted on the right side measuring 2.3 cm which is not a cyst. No additional liver abnormality is definitely appreciated. Spleen size is normal. Moderate sized hiatal hernia is noted. Nasogastric tube is seen with tip lying within the stomach. Adrenal glands show no nodule. Pancreas shows no discrete abnormality. Gallbladder contains no calcified gallstones. Kidneys show symmetric contrast enhancement. No discrete mass is appreciated. Aorta shows no aneurysm. No retroperitoneal adenopathy or mesenteric abnormalities are seen. No pelvic mass or adenopathy is noted. Perez catheter is seen within a collapsed bladder. Appendix not visualized with certainty. No bowel dilatation is appreciated. Bone window settings were reviewed which show slight scattered degenerative change within the spine. Impression: 1. Motion artifact. Perez catheter and nasogastric tube are noted. 2. Liver lesion within the right lobe which does not represent a simple cyst. Nonemergent MRI with contrast is recommended. 3. Other findings believed to be incidental as noted above. 4. No acute abnormality is definitely appreciated on CT study of the abdomen and pelvis. Diagnostic code #2 This report was dictated in MDT
[2019-06-05 15:12] VITALS: BP 132/92; PULSE 99
== END 2019-06-04 19:27 ==
LOC: MW.ED 15:15
DX: T51.0X1A Toxic effect of ethanol, accidental (unintentional), initial encounter (principal); R09.2 Respiratory arrest; I10 Essential (primary) hypertension; Z86.73 Personal history of transient ischemic attack (TIA), and cerebral infarction without residual deficits; E11.9 Type 2 diabetes mellitus without complications; F31.9 Bipolar disorder, unspecified; F41.9 Anxiety disorder, unspecified; Z88.0 Allergy status to penicillin; Z79.899 Other long term (current) drug therapy; J45.909 Unspecified asthma, uncomplicated
CPT/HCPCS: 31500; 36415; 36600; 70450; 71045; 71260; 72125; 74177; 80053; 80305; 80307; 81001; 82375; 82550; 82803; 82962; 83605; 83735; 84443; 84484; 85025; 87040; 93005; 99285; J0330; J3490; Q9967

== ENCOUNTER 2020-02-04 14:05 | Emergency (ER) | payer MEDICAID ==
--- NOTE | 2020-02-04 15:11 | EDM.PDOC ---
ED HPI GENERAL MEDICAL PROBLEM - General Chief Complaint: Drug or Alcohol Abuse Stated Complaint: DETOX Time Seen by Provider: 02/04/20 14:14 Source of Information: Reports: Patient History Limitations: Reports: No Limitations - History of Present Illness INITIAL COMMENTS - FREE TEXT/NARRATIVE: HISTORY AND PHYSICAL: History of present illness: Patient is a 39-year-old male presents emergency room today with desire for alcohol detox. Patient states that he has been drinking and drinks daily. Patient states he has been drinking today his last drink just before coming to the emergency room. Patient states that he went to [facility] and was instructed to come to the emergency room and was brought by [facility] for possible detox. Patient states he does not have any symptoms or concerns today that he would like to have evaluated. Patient denies fever, chills, chest pain, shortness of breath, or cough. Denies headache, neck stiff ness, change in vision, syncope, or near syncope. Denies nausea, vomiting, abdominal pain, diarrhea, constipation, or dysuria. Has not noted any blood in urine or stool. Patient has been eating and drinking ap propriately. Review of systems: As per history of present illness and below otherwise all systems reviewed and negative. Past medical history: As per history of present illness and as reviewed below otherwise noncontributory. Surgical history: As per history of present illness and as reviewed below otherwise noncontributory. Social history: See social history for further information Family history: As per history of present illness and as reviewed below otherwise noncontributory. Physical exam: General: Patient is alert, oriented, and in no acute distress. Patient sitting comfortably on exam table. Vitals stable and reviewed by me. HEENT: Atraumatic, normocephalic, pupils equal and reactive bilaterally, negative for conjunctival pallor or scleral icterus, mucous membranes moist, TMs normal bilaterally, throat clear, neck supple, nontender, trachea midline. No drooling or trismus noted. No meningeal signs. No hot potato voice noted. Lungs: Clear to auscultation, breath sounds equal bilaterally, chest nontender. Heart: S1S2, regular rate and rhythm without overt murmur Abdomen: Soft, nondistended, nontender. Negative for masses or hepatosplenomegaly. Negative for costovertebral tenderness. Pelvis: Stable nontender. Genitourinary: Deferred. Rectal: Deferred. Skin: Intact, warm, dry. No lesions or rashes noted. Extremities: Atraumatic, negative for cords or calf pain. Neurovascular unremarkable. Neuro: Awake, alert, oriented. Cranial nerves II through XII unremarkable. Cerebellum unremarkable. Motor and sensory unremarkable throughout. Exam nonfocal. Notes: Vitals stable and patient is well appearing on exam and in no acute distress. I offered to call [facility] to get an accepting for alcohol detox. Patient declines this as he does not have a ride. Currently there are no EMS available for transfer. Discussed this with patient and he requests discharge from ED. Patient states he is homeless and has no where to go. I called and spoke to patient's mother, Gabriela, and she states that she will come and tack picker patient and bring him home/try to encourage him to go to detox in [place]. Strict return precautions thoroughly discussed with patient. Discussed importance for follow- up with a primary care provider as well as with an addiction program. Patient has been provided with outpatient addiction program resources. Voices understanding and is agreeable to plan of care. Denies any further questions or concerns at this time. Diagnostics: None Therapeutics: None Prescription: None Impression: Alcohol abuse Plan: 1. Contact any of the above addiction programs for further help as discussed. Return to the ED as needed and as discussed. 2. Follow up with a primary care provider as discussed. Definitive disposition and diagnosis as appropriate pending reevaluation and review of above. - Related Data Allergies Allergy/AdvReac Type Severity Reaction Status Date / Time Penicillins Allergy Hives Verified 02/04/20 14:29 Home Meds: Home Meds QUEtiapine Fumarate [Seroquel] 300 mg PO BEDTIME 02/04/20 [History] Past Medical History - Past Health History Medical/Surgical History: Denies Medical/Surgical History HEENT History: Reports: Other (See Below) Other HEENT History: teeth missing, broken Cardiovascular History: Reports: High Cholesterol, Hypertension Respiratory History: Reports: Asthma, Other (See Below) Other Respiratory History: nodes on lungs Gastrointestinal History: Reports: None Genitourinary History: Reports: None Musculoskeletal History: Reports: Fracture Neurological History: Reports: CVA Other Neuro History: Stroke last week Psychiatric History: Reports: Anxiety, Bipolar, Suicide Attempt Other Psychiatric History: Unable to verify d/t severe intoxication Endocrine/Metabolic History: Reports: Diabetes, Type II Hematologic History: Reports: None Immunologic History: Reports: None Oncologic (Cancer) History: Reports: None Dermatologic History: Reports: Cellulitis - Infectious Disease History Infectious Disease History: Reports: None - Past Surgical History Head Surgeries/Procedures: Reports: None HEENT Surgical History: Reports: None Cardiovascular Surgical History: Reports: None Respiratory Surgical History: Reports: None GI Surgical History: Reports: None Male Surgical History: Reports: None Endocrine Surgical History: Reports: None Neurological Surgical History: Reports: None Other Neurological Surgeries/Procedures: Unable to verify -- not answering Musculoskeletal Surgical History: Reports: None Oncologic Surgical History: Reports: None Dermatological Surgical History: Reports: None Social & Family History - Family History Family Medical History: No Pertinent Family History - Tobacco Use Tobacco Use Status *Q: Current Every Day Tobacco User Years of Tobacco use: 25 Packs/Tins Daily: 1 - Caffeine Use Caffeine Use: Reports: None Caffeine Use Comment: 8-10cups/day - Alcohol Use Days Per Week of Alcohol Use: 7 Number of Drinks Per Day: 7 Total Drinks Per Week: 49 - Recreational Drug Use Recreational Drug Use: Yes Recreational Drug Type: Reports: Marijuana/Hashish Recreational Drug Use Frequency: Daily ED ROS GENERAL - Review of Systems Review Of Systems: Comprehensive ROS is negative, except as noted in HPI. ED EXAM, GENERAL - Physical Exam Exam: See Below (see dictation) Course - Vital Signs Last Recorded V/S: Last Vital Signs Temp 96.9 F 02/04/20 14:14 Pulse 82 02/04/20 14:14 Resp 18 02/04/20 14:14 BP 149/95 H 02/04/20 14:14 Pulse Ox 97 02/04/20 14:14 Departure - Departure Time of Disposition: 15:17 Disposition: Home, Self-Care 01 Clinical Impression: Alcohol abuse - Discharge Information Referrals: PCP,None [Primary Care Provider] - Forms: ED Department Discharge Additional Instructions: The following information is given to patients seen in the emergency department who are being discharged to home. This information is to outline your options for follow-up care. We provide all patients seen in our emergency department with a follow-up referral. The need for follow-up, as well as the timing and circumstances, are variable depending upon the specifics of your emergency department visit. If you don't have a primary care physician on staff, we will provide you with a referral. We always advise you to contact your personal physician following an emergency department visit to inform them of the circumstance of the visit and for follow-up with them and/or the need for any referrals to a consulting specia list. The emergency department will also refer you to a specialist when appropriate. This referral assures that you have the opportunity for follow-up care with a specialist. All of these measure are taken in an effort to provide you with optimal care, which includes your follow-up. Under all circumstances we always encourage you to contact your private physician who remains a resource for coordinating your care. When calling for follow-up care, please make the office aware that this follow-up is from your recent emergency room visit. If for any reason you are refused follow-up, please contact the [facility] Emergency Department at and asked to speak to the emergency department charge nurse. [facility] Primary Care [address], [place] [address] [facility] [address] [place] [address] [facility] [address], [place] [facility] [place] [address] [place], [place] [facility] [place] [address] [place] [address] [facility] Partial Hospitalization Program [address] [address] [facility] [address] [facility] [address] 1. Contact any of the above addiction programs for further help as discussed. Return to the ED as needed and as discussed. 2. Follow up with a primary care provider as discussed. Sepsis Event Note (ED) - Evaluation Sepsis Screening Result: No Definite Risk - Focused Exam Vital Signs: Vital Signs Temp Pulse Resp BP Pulse Ox 02/04/20 14:14 96.9 F 82 18 149/95 H 97
[2020-02-04 18:49] VITALS: BP 131/71; PULSE 78
== END 2020-02-04 15:57 | disposition home or self-care (01) ==
LOC: MW.ED 14:05
DX: F10.10 Alcohol abuse, uncomplicated (principal); I10 Essential (primary) hypertension; F41.9 Anxiety disorder, unspecified; F31.9 Bipolar disorder, unspecified; E11.9 Type 2 diabetes mellitus without complications; F17.210 Nicotine dependence, cigarettes, uncomplicated; Z88.0 Allergy status to penicillin; Z79.899 Other long term (current) drug therapy
CPT/HCPCS: 99284

== ENCOUNTER 2020-04-08 19:07 | Emergency (ER) | payer MEDICAID ==
[2020-04-08] MEDS ORDERED: Octyl 2-Cyanoacrylate 1 APPLIC TUBE TOP ONE (19:13)
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
[2020-04-08 19:34] VITALS: BP 151/102; PULSE 101
--- NOTE | 2020-04-08 19:50 | CT ---
INDICATION: Trauma, head injury. COMPARISON: CT head 06/04/2019. TECHNIQUE: CT of the head without IV contrast. Coronal and sagittal reconstructions are provided. FINDINGS: No intracranial hemorrhage, mass effect, or evidence of acute infarct. No midline shift. No abnormal extra-axial fluid collections. Normal caliber ventricular system. Chronic dural calcification at the left vertex. Orbits and extraocular muscles are symmetric. Postoperative changes of the maxillary sinuses. Chronic mucosal thickening in the left maxillary sinus. Resolution of previously seen ethmoid sinus mucosal thickening. The paranasal sinuses and mastoid air cells are otherwise clear. No acute fracture. Soft tissues are unremarkable. IMPRESSION: : No acute intracranial findings. Please note that all CT scans at this facility use dose modulation, iterative reconstruction, and/or weight-based dosing when appropriate to reduce radiation dose to as low as reasonably achievable. Dictated by Maria A Ramirez MD @ Apr 08 2020 7:40PM Signed by Dr. Maria A Ramirez @ Apr 08 2020 7:47PM
--- NOTE | 2020-04-08 19:58 | CT ---
Indication: Trauma, injury. Technique: CT of the cervical spine without IV contrast. Coronal and sagittal reconstructions. Comparison: CT cervical spine 06/04/2019. Findings: No acute fracture or traumatic malalignment of the cervical spine. Vertebral body heights are well maintained. Normal vertebral body alignment. Anterior hypertrophic spurring at C4-C6. Mild disc space narrowing at C4-C5 and C5-C6. No significant neural foraminal narrowing or spinal canal stenosis. Prevertebral soft tissues are unremarkable. Visualized intracranial contents are unremarkable. The mastoid air cells are clear. The thyroid gland is normal in appearance. Emphysema in the lung apices. 5 mm noncalcified pulmonary nodule in the right lung apex (series 302, image 77). There is a healing nondisplaced fracture of the left posterior 4th rib which is new since prior exam. Impression: 1. No acute fracture or traumatic malalignment of the cervical spine. 2. Stable mild spondylotic changes at C4-C6. 3. Healing nondisplaced fracture of the left posterior 4th rib which is new since prior exam. 4. Emphysema in the lung apices. 5. 5 mm noncalcified pulmonary nodule in the right lung apex. Please note that all CT scans at this facility use dose modulation, iterative reconstruction, and/or weight-based dosing when appropriate to reduce radiation dose to as low as reasonably achievable. Dictated by Maria A Ramirez MD @ Apr 08 2020 7:47PM Signed by Dr. Maria A Ramirez @ Apr 08 2020 7:57PM
--- NOTE | 2020-04-08 21:09 | CR ---
HISTORY: Trauma. Left-sided chest pain. TECHNIQUE: Portable frontal view the chest. COMPARISON: None. FINDINGS: No airspace consolidation. No pleural effusion or pneumothorax. Pulmonary vasculature and cardiomediastinal silhouette are within normal limits. No displaced fracture of the visualized ribs. IMPRESSION: No acute findings. Dictated by Guzman Busby MD @ Apr 08 2020 7:57PM Signed by Dr. Guzman Busby @ Apr 08 2020 9:08PM
== END 2020-04-08 20:07 | disposition home or self-care (01) ==
LOC: MW.ED 19:07
DX: S01.81XA Laceration without foreign body of other part of head, initial encounter (principal); S09.90XA Unspecified injury of head, initial encounter; S20.212A Contusion of left front wall of thorax, initial encounter; I10 Essential (primary) hypertension; E11.9 Type 2 diabetes mellitus without complications; J45.909 Unspecified asthma, uncomplicated; Z86.73 Personal history of transient ischemic attack (TIA), and cerebral infarction without residual deficits; Z88.0 Allergy status to penicillin; Z79.899 Other long term (current) drug therapy; Y04.0XXA Assault by unarmed brawl or fight, initial encounter
CPT/HCPCS: 12011; 70450; 71045; 72125; 99285; A9270; 99283

== ENCOUNTER 2020-04-09 18:48 | Emergency (ER) | payer MEDICAID ==
[2020-04-09 18:58] VITALS: BP 173/120; PULSE 62
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
== END 2020-04-09 19:15 | disposition home or self-care (01) ==
LOC: MW.ED 18:48
DX: S01.81XA Laceration without foreign body of other part of head, initial encounter (principal); H20.9 Unspecified iridocyclitis; I10 Essential (primary) hypertension; J45.909 Unspecified asthma, uncomplicated; E11.9 Type 2 diabetes mellitus without complications; Z88.0 Allergy status to penicillin; Z86.73 Personal history of transient ischemic attack (TIA), and cerebral infarction without residual deficits; Z72.0 Tobacco use; Y04.0XXA Assault by unarmed brawl or fight, initial encounter
CPT/HCPCS: 99283

== ENCOUNTER 2021-01-13 16:13 | Emergency (ER) | payer MEDICAID ==
[2021-01-13 16:20] VITALS: PULSE 110
== END 2021-01-13 16:32 | disposition home or self-care (01) ==
LOC: MW.ED 16:13
DX: F10.129 Alcohol abuse with intoxication, unspecified (principal); E78.00 Pure hypercholesterolemia, unspecified; I10 Essential (primary) hypertension; E11.9 Type 2 diabetes mellitus without complications; Z88.0 Allergy status to penicillin; Z86.73 Personal history of transient ischemic attack (TIA), and cerebral infarction without residual deficits
CPT/HCPCS: 99283

== ENCOUNTER 2021-03-18 18:47 | Emergency (ER) | payer MEDICAID ==
[2021-03-18 18:56] VITALS: BP 152/95; PULSE 102
== END 2021-03-18 19:25 | disposition home or self-care (01) ==
LOC: MW.ED 18:47
DX: Z02.89 Encounter for other administrative examinations (principal); E78.00 Pure hypercholesterolemia, unspecified; I10 Essential (primary) hypertension; E11.9 Type 2 diabetes mellitus without complications; J45.909 Unspecified asthma, uncomplicated; Z88.0 Allergy status to penicillin; Z86.73 Personal history of transient ischemic attack (TIA), and cerebral infarction without residual deficits
CPT/HCPCS: 99282

== ENCOUNTER 2021-03-19 07:15 | Emergency (ER) | payer MEDICAID ==
[2021-03-19 08:19] LABS: ACETAMINOPHEN <2.0 ug/mL; BLOOD UREA NITROGEN,BUN 6 mg/dL (7.0-18.0); CARBON DIOXIDE,CO2 27.2 mmol/L (21.0-32.0); CHLORIDE,CL 101 mmol/L (98-107); GLUCOSE RANDOM 97 mg/dL (74-106); SODIUM,NA 139 mmol/L (136-148)
[2021-03-19 09:38] VITALS: BP 138/87; PULSE 73
== END 2021-03-19 09:38 ==
LOC: MW.ED 07:15
DX: U07.1 COVID-19 (principal); F10.20 Alcohol dependence, uncomplicated; E78.00 Pure hypercholesterolemia, unspecified; I10 Essential (primary) hypertension; E11.9 Type 2 diabetes mellitus without complications; J45.909 Unspecified asthma, uncomplicated; Z88.0 Allergy status to penicillin; Z86.73 Personal history of transient ischemic attack (TIA), and cerebral infarction without residual deficits; Y90.5 Blood alcohol level of 100-119 mg/100 ml
CPT/HCPCS: 36415; 80053; 80143; 80179; 80305-QW; 80307; 81001; 83735; 85025; 87086; 99284; U0002

== ENCOUNTER 2021-03-19 15:00 | Emergency (ER) | payer MEDICAID ==
[2021-03-19 15:44] VITALS: BP 137/88; PULSE 80
== END 2021-03-19 15:41 ==
LOC: MW.ED 15:00
DX: F10.20 Alcohol dependence, uncomplicated (principal); E78.00 Pure hypercholesterolemia, unspecified; I10 Essential (primary) hypertension; E11.9 Type 2 diabetes mellitus without complications; Z86.73 Personal history of transient ischemic attack (TIA), and cerebral infarction without residual deficits; Z88.0 Allergy status to penicillin
CPT/HCPCS: 99284

== ENCOUNTER 2021-06-21 17:36 | Emergency (ER) | payer MEDICAID ==
[2021-06-21] MEDS ORDERED: Ondansetron 4 MG/2 ML SDV IVPUSH ONE (17:38)
[2021-06-21] MEDS ORDERED: Sodium Chloride 0.9% 1,000 ML IV ONE (17:38)
[2021-06-21 18:13] VITALS: BP 144/74; PULSE 87
== END 2021-06-21 18:13 ==
LOC: MW.ED 17:36
DX: F10.129 Alcohol abuse with intoxication, unspecified (principal); I10 Essential (primary) hypertension; E11.9 Type 2 diabetes mellitus without complications; Z88.0 Allergy status to penicillin; Z86.73 Personal history of transient ischemic attack (TIA), and cerebral infarction without residual deficits
CPT/HCPCS: 82947; 96374; 99284; J2405

== ENCOUNTER 2022-03-06 15:11 | Inpatient (IN) | payer MEDICAID ==
[2022-03-06] MEDS ORDERED: Sodium Chloride 0.9% 2.5 ML Syringe FLUSH PRN (15:18)
[2022-03-06] MEDS ORDERED: Sodium Chloride 0.9% 10 ML Syringe FLUSH PRN (15:18)
[2022-03-06] MEDS ORDERED: Sodium Chloride 0.9% 1,000 ML IV ONE ×2 (15:29→21:35)
[2022-03-06] MEDS ORDERED: Ondansetron 4 MG/2 ML SDV IVPUSH ONE (15:29)
[2022-03-06 16:46] LABS: BLOOD UREA NITROGEN,BUN 12 mg/dL (7.0-18.0); CHLORIDE,CL 70 mmol/L (98-107); GLUCOSE RANDOM 101 mg/dL (74-106)
[2022-03-06 16:56] LABS: ESTIMATED GFR 125 mL/min (>60); POTASSIUM,K 2.4 mmol/L (3.5-5.1); SODIUM,NA 115 mmol/L (136-148)
[2022-03-06] MEDS ORDERED: Sodium Chloride 0.9% 500 ML IV ONE (17:15)
[2022-03-06] MEDS: Potassium Chloride 100 ML IV SCH ×4 (17:19→23:59)
[2022-03-06 17:56] LABS: CORONAVIRUS COVID-19 NAA NEGATIVE (NEGATIVE); INFLUENZA A NAA NEGATIVE (NEGATIVE); INFLUENZA B NAA NEGATIVE (NEGATIVE); RESPIRATORY SYNCYTIAL VIR NAA NEGATIVE (NEGATIVE)
[2022-03-06] MEDS ORDERED: Polyethylene Glycol 3350 Powder 17 GM Packet PO PRN (18:47)
[2022-03-06] MEDS ORDERED: Albuterol/Ipratropium 3.0-0.5 MG/3 ML Neb Soln NEB PRN (18:47)
[2022-03-06] MEDS ORDERED: LORazepam 2 MG/ML SDV IVPUSH PRN (18:54)
[2022-03-06] MEDS ORDERED: Lactated Ringers 1,000 ML IV SCH (19:00)
[2022-03-06] MEDS ORDERED: Potassium Chloride 100 ML IV SCH ×2 (19:00→19:15)
[2022-03-06] MEDS ORDERED: Thiamine 100 MG in Sodium Chloride 0.9% 100 ML IV SCH (19:00)
[2022-03-06] MEDS: Folic Acid 1 MG/0.2 ML UD Syringe IV SCH (19:23)
[2022-03-06 20:37] LABS: CARBON DIOXIDE,CO2 19.1 mmol/L (21.0-32.0)
[2022-03-06 20:40] LABS: ACETAMINOPHEN 2.7 ug/mL
[2022-03-06] MEDS ORDERED: Sodium Chloride 0.9% 1,000 ML IV SCH (21:15)
[2022-03-07 00:50] LABS: POTASSIUM,K 3.2 mmol/L (3.5-5.1)
[2022-03-07] MEDS: Potassium Chloride 100 ML IV SCH ×2 (02:09→04:27)
[2022-03-07 04:21] LABS: CARBON DIOXIDE,CO2 22.7 mmol/L (21.0-32.0); POTASSIUM,K 3.7 mmol/L (3.5-5.1)
[2022-03-07] MEDS ORDERED: 50% Dextrose in Water 50 ML Syringe IVPUSH PRN (06:53)
[2022-03-07] MEDS ORDERED: Glucagon,Human Recombinant 1 MG Vial IM PRN (06:53)
[2022-03-07] MEDS: Insulin Aspart 100 Units/ML 3 ML Pen SUBCUT SCH ×3 (08:59→17:34)
[2022-03-07] MEDS: Folic Acid 1 MG/0.2 ML UD Syringe IV SCH (09:02)
[2022-03-07] MEDS: Thiamine 200 MG/2 ML MDV IVPUSH SCH (09:02)
[2022-03-07] MEDS: Ondansetron 4 MG/2 ML SDV IVPUSH PRN (09:31)
[2022-03-07] MEDS: Pantoprazole 40 MG in Sodium Chloride 0.9% 10 ML IVPUSH SCH (11:33)
[2022-03-07 13:16] LABS: CARBON DIOXIDE,CO2 24.6 mmol/L (21.0-32.0); POTASSIUM,K 3.9 mmol/L (3.5-5.1)
[2022-03-07] MEDS ORDERED: Enoxaparin 40 MG/0.4 ML Syringe SUBCUT SCH (14:00)
[2022-03-07 16:45] LABS: CARBON DIOXIDE,CO2 26.5 mmol/L (21.0-32.0); POTASSIUM,K 3.2 mmol/L (3.5-5.1)
[2022-03-07] MEDS ORDERED: Potassium Chloride 20 MEQ Tab.ER PO ONE ×2 (17:46→21:52)
[2022-03-07] MEDS: QUEtiapine 25 MG Tab PO SCH (20:03)
[2022-03-07 20:28] LABS: CARBON DIOXIDE,CO2 25.5 mmol/L (21.0-32.0); POTASSIUM,K 3.4 mmol/L (3.5-5.1)
[2022-03-08 00:55] LABS: CARBON DIOXIDE,CO2 25.7 mmol/L (21.0-32.0); POTASSIUM,K 3.5 mmol/L (3.5-5.1)
[2022-03-08 07:05] LABS: CARBON DIOXIDE,CO2 24.5 mmol/L (21.0-32.0); POTASSIUM,K 3.5 mmol/L (3.5-5.1)
[2022-03-08] MEDS: Insulin Aspart 100 Units/ML 3 ML Pen SUBCUT SCH ×3 (07:58→17:09)
[2022-03-08] MEDS: Folic Acid 1 MG/0.2 ML UD Syringe IV SCH (09:11)
[2022-03-08] MEDS: Pantoprazole 40 MG in Sodium Chloride 0.9% 10 ML IVPUSH SCH (09:11)
[2022-03-08] MEDS: Ondansetron 4 MG/2 ML SDV IVPUSH PRN (09:11)
[2022-03-08] MEDS: Thiamine 200 MG/2 ML MDV IVPUSH SCH (09:11)
[2022-03-08 12:53] LABS: CARBON DIOXIDE,CO2 25.3 mmol/L (21.0-32.0); POTASSIUM,K 3.8 mmol/L (3.5-5.1)
[2022-03-08 18:52] LABS: CARBON DIOXIDE,CO2 25.9 mmol/L (21.0-32.0); POTASSIUM,K 3.4 mmol/L (3.5-5.1)
[2022-03-08] MEDS: QUEtiapine 25 MG Tab PO SCH (20:00)
[2022-03-09 06:45] LABS: POTASSIUM,K 3.2 mmol/L (3.5-5.1)
[2022-03-09] MEDS: Insulin Aspart 100 Units/ML 3 ML Pen SUBCUT SCH ×3 (07:37→17:14)
[2022-03-09] MEDS: Sodium Chloride 0.9% 1,000 ML IV SCH ×2 (08:06→18:15)
[2022-03-09] MEDS: Potassium Chloride 100 ML IV SCH ×2 (09:37→12:18)
[2022-03-09] MEDS: Folic Acid 1 MG/0.2 ML UD Syringe IV SCH (09:38)
[2022-03-09] MEDS: Thiamine 200 MG/2 ML MDV IVPUSH SCH (09:38)
[2022-03-09] MEDS: Pantoprazole 40 MG in Sodium Chloride 0.9% 10 ML IVPUSH SCH (09:39)
[2022-03-09 15:41] LABS: CARBON DIOXIDE,CO2 26.9 mmol/L (21.0-32.0); POTASSIUM,K 3.9 mmol/L (3.5-5.1)
[2022-03-09] MEDS: QUEtiapine 25 MG Tab PO SCH (20:32)
[2022-03-10] MEDS: Sodium Chloride 0.9% 1,000 ML IV SCH (04:48)
[2022-03-10] MEDS: Insulin Aspart 100 Units/ML 3 ML Pen SUBCUT SCH (07:07)
[2022-03-10] MEDS: Thiamine 200 MG/2 ML MDV IVPUSH SCH (08:14)
[2022-03-10] MEDS: Folic Acid 1 MG/0.2 ML UD Syringe IV SCH (08:15)
[2022-03-10 08:16] LABS: CARBON DIOXIDE,CO2 21.9 mmol/L (21.0-32.0); POTASSIUM,K 3.7 mmol/L (3.5-5.1)
[2022-03-10] MEDS: Pantoprazole 40 MG in Sodium Chloride 0.9% 10 ML IVPUSH SCH (09:56)
[2022-03-10 11:48] VITALS: BP 138/90; PULSE 84
== END 2022-03-10 12:30 | disposition home or self-care (01) | DRG 897 ==
LOC: MW.ED 15:11 → MW.ICU 17:00 → MW.MS 03-08 15:31
PROVIDERS: ADMIT Internal Medicine; ATTEND Internal Medicine
DX: F10.20 Alcohol dependence, uncomplicated (principal); E87.1 Hypo-osmolality and hyponatremia; K76.0 Fatty (change of) liver, not elsewhere classified; E87.6 Hypokalemia; E11.9 Type 2 diabetes mellitus without complications; I10 Essential (primary) hypertension; E78.00 Pure hypercholesterolemia, unspecified; F41.9 Anxiety disorder, unspecified; F31.9 Bipolar disorder, unspecified; K70.10 Alcoholic hepatitis without ascites; K59.00 Constipation, unspecified; Z86.19 Personal history of other infectious and parasitic diseases; Z88.0 Allergy status to penicillin; Z86.73 Personal history of transient ischemic attack (TIA), and cerebral infarction without residual deficits
CPT/HCPCS: 0241U; 36415; 71046; 71046-26; 74176; 74176-26; 76705; 76705-26; 80048; 80053; 80074; 80143; 80179; 80307; 81001; 82947; 82977; 83605; 83690; 83735; 83930; 83935; 84295; 85025; 85610; 93005; 93010; 96361; 96365; 96375; 97116-GP; 97162-GP; 97530-GP; 99285; 99285-25; A9270-GY; C9113; J1650; J2405; J3411; J3480; J3490; J7030; J7040; J7120

== ENCOUNTER 2022-07-11 09:43 | Emergency (ER) | payer MEDICAID ==
[2022-07-11] MEDS ORDERED: Sodium Chloride 0.9% 2.5 ML Syringe FLUSH PRN (10:10)
[2022-07-11] MEDS ORDERED: Sodium Chloride 0.9% 10 ML Syringe FLUSH PRN (10:10)
[2022-07-11 10:22] LABS: BASOPHILS PERCENT AUTO 0.2 % (0.0-1.5); EOSINOPHILS PERCENT AUTO 0.1 % (0.0-7.0); HEMATOCRIT 47.9 % (38.0-50.0); HEMOGLOBIN 16.4 g/dL (13.0-17.0); LYMPHOCYTES ABSOLUTE AUTO 1.3 K/uL (0.6-2.4); LYMPHOCYTES PERCENT AUTO 7.6 % (16.0-40.0); MEAN CORPUSCULAR HEMOGLOBIN 30.2 pg (27.0-32.0); MEAN CORPUSCULAR HGB CONC 34.2 g/dL (31.0-37.0); MEAN CORPUSCULAR VOLUME 88.2 fL (80.0-98.0); MONOCYTES ABSOLUTE AUTO 1.8 K/uL (0.0-0.8); MONOCYTES PERCENT AUTO 11.1 % (0.0-15.0); NEUTROPHILS ABSOLUTE AUTO 13.4 K/uL (1.4-5.7); PLATELET COUNT,PLT 370 K/uL (150-400); RED BLOOD CELL COUNT 5.43 M/uL (4.50-5.90); WHITE BLOOD CELL COUNT,WBC 16.46 K/uL (4.0-11.0)
[2022-07-11] MEDS ORDERED: Morphine 4 MG/ML Syringe IVPUSH ONE (10:34)
[2022-07-11] MEDS ORDERED: Sodium Chloride 0.9% 1,000 ML IV ONE (10:44)
[2022-07-11 11:04] LABS: A/G RATIO 0.9 (0.9-1.6); ALBUMIN 3.9 g/dL (3.4-5.0); BILIRUBIN TOTAL 0.7 mg/dL (0.2-1.0); CALCIUM 9.5 mg/dL (8.5-10.1); CARBON DIOXIDE,CO2 16.5 mmol/L (21.0-32.0); CREATININE 0.9 mg/dL (0.8-1.3); EST CRCL DRUG DOSING (CG) 108.01 mL/min; PROTEIN TOTAL,TP 8.3 g/dL (6.4-8.2)
[2022-07-11] MEDS ORDERED: LORazepam 2 MG/ML SDV IVPUSH ONE (11:08)
[2022-07-11 11:19] LABS: AMPHETAMINES SCREEN, URINE NEGATIVE (CUTOFF=500); BARBITURATE SCREEN,URINE NEGATIVE (CUTOFF=200); BENZODIAZEPINES SCREEN,URINE NEGATIVE (CUTOFF=150); BUPRENORPHINE SCREEN,URINE NEGATIVE (CUTOFF=10); METHADONE SCREEN, URINE NEGATIVE (CUTOFF=200); METHAMPHETAMINES SCREEN, URINE NEGATIVE (CUTOFF=500); OXYCODONE SCREEN,URINE NEGATIVE (CUT0FF=100); PCP SCREEN,URINE NEGATIVE (CUTOFF=25); PROPOXYPHENE SCREEN,URINE NEGATIVE (CUTOFF=300); THC SCREEN,URINE 20 NG/ML PRESUMPTIVE POSITIVE (CUTOFF=50)
[2022-07-11] MEDS ORDERED: Sodium Chloride 0.9% 2,000 ML IV ONE (13:02)
[2022-07-11] MEDS ORDERED: Morphine 4 MG/ML Syringe IVPUSH PRN (13:04)
[2022-07-11] MEDS ORDERED: Pantoprazole 80 MG in Sodium Chloride 0.9% 10 ML IVPUSH ONE (15:08)
[2022-07-11 16:27] VITALS: BP 144/80; PULSE 122
== END 2022-07-11 16:38 | disposition left against medical advice (07) ==
LOC: MW.ED 09:43
DX: S43.014A Anterior dislocation of right humerus, initial encounter (principal); Z88.0 Allergy status to penicillin; Z72.0 Tobacco use; W19.XXXA Unspecified fall, initial encounter
CPT/HCPCS: 36415; 70450; 71045; 71110; 73020; 73030; 73060; 80053; 80305; 80307; 82550; 84484; 85025; 93005; 96361; 96374; 96375; 96376; 99284; C9113; J2060; J2270; J3360; J3490; J7030; 23650; 93010

== ENCOUNTER 2022-09-29 23:12 | Emergency (ER) | payer MEDICAID ==
[2022-09-29] MEDS ORDERED: Acetaminophen/oxyCODONE 325-5 MG Tab PO ONE (23:16)
[2022-09-29] MEDS ORDERED: Ibuprofen 600 MG Tab PO ONE (23:16)
[2022-09-29 23:22] VITALS: BP 131/88; PULSE 103
== END 2022-09-29 23:35 | disposition home or self-care (01) ==
LOC: MW.ED 23:12
DX: M25.511 Pain in right shoulder (principal); Z88.0 Allergy status to penicillin
CPT/HCPCS: 99283; A9270

== ENCOUNTER 2022-09-30 02:58 | Emergency (ER) | payer MEDICAID ==
[2022-09-30 03:03] VITALS: BP 145/85; PULSE 77
== END 2022-09-30 03:09 ==
LOC: MW.ED 02:58
DX: F10.929 Alcohol use, unspecified with intoxication, unspecified (principal); Z88.0 Allergy status to penicillin
CPT/HCPCS: 99282; 99284

== ENCOUNTER 2022-11-27 01:14 | Emergency (ER) | payer MEDICAID ==
[2022-11-27 01:59] VITALS: BP 177/92; PULSE 120
== END 2022-11-27 01:58 | disposition home or self-care (01) ==
LOC: MW.ED 01:14
DX: S42.301A Unspecified fracture of shaft of humerus, right arm, initial encounter for closed fracture (principal); Z88.0 Allergy status to penicillin; X58.XXXA Exposure to other specified factors, initial encounter
CPT/HCPCS: 99283

== ENCOUNTER 2022-11-28 16:48 | Emergency (ER) | payer MEDICAID ==
[2022-11-28 17:43] LABS: BASOPHILS ABSOLUTE AUTO 0.05 K/uL (0.00-0.20); BASOPHILS PERCENT AUTO 0.5 % (0.0-1.0); EOSINOPHILS ABSOLUTE AUTO 0.38 K/uL (0.00-0.45); EOSINOPHILS PERCENT AUTO 3.6 % (0.0-6.0); HEMATOCRIT 38.7 % (42.0-52.0); HEMOGLOBIN 13.3 g/dL (14.0-18.0); IMMATURE GRAN ABSOLUTE AUTO 0.01 K/uL (0.00-0.05); IMMATURE GRAN PERCENT AUTO 0.1 % (0.0-0.4); LYMPHOCYTES ABSOLUTE AUTO 2.53 K/uL (1.00-4.80); LYMPHOCYTES PERCENT AUTO 23.7 % (24.0-44.0); MEAN CORPUSCULAR HGB CONC 34.4 g/dL (32.0-36.0); MEAN CORPUSCULAR VOLUME 87.2 fL (83.0-99.0); MEAN PLATELET VOLUME 9.3 fL (9.4-12.4); MONOCYTES ABSOLUTE AUTO 0.94 K/uL (0.00-0.80); MONOCYTES PERCENT AUTO 8.8 % (0.0-8.0); NEUTROPHILS ABSOLUTE AUTO 6.77 K/uL (1.80-7.70); NEUTROPHILS PERCENT AUTO 63.3 % (41.0-71.0); PLATELET COUNT,PLT 291 K/uL (150-400); RED BLOOD CELL COUNT 4.44 M/uL (4.52-5.90); WHITE BLOOD CELL COUNT,WBC 10.68 K/uL (3.9-11.3)
[2022-11-28] MEDS ORDERED: LORazepam 1 MG Tab PO ONE (18:15)
[2022-11-28 18:25] LABS: A/G RATIO 0.8 (0.9-1.6); ACETAMINOPHEN <2.0 ug/mL; ALANINE AMINOTRANSFERASE,ALT 34 IU/L (14-63); ALBUMIN 3.6 g/dL (3.4-5.0); ALKALINE PHOSPHATASE 145 U/L (46-116); ASPARTATE AMNIOTRANSFERASE,AST 64 IU/L (15-37); BILIRUBIN TOTAL 0.7 mg/dL (0.2-1.0); BLOOD UREA NITROGEN,BUN 13 mg/dL (7.0-18.0); CALCIUM 8.8 mg/dL (8.5-10.1); CARBON DIOXIDE,CO2 21.7 mmol/L (21.0-32.0); CHLORIDE,CL 101 mmol/L (98-107); CREATININE 0.7 mg/dL (0.8-1.3); EST CRCL DRUG DOSING (CG) 133.65 mL/min; ESTIMATED GFR 119 mL/min (>60); ETHANOL BLOOD MEDICAL < 3.0 mg/dL; GLUCOSE RANDOM 138 mg/dL (74-106); POTASSIUM,K 3.7 mmol/L (3.5-5.1); SODIUM,NA 136 mmol/L (136-148)
[2022-11-28 18:53] LABS: APPEARANCE,URINE CLEAR; COLOR,URINE YELLOW; GLUCOSE,URINE NEGATIVE (NEGATIVE); KETONES,URINE 15 mg/dL (NEGATIVE); LEUKOCYTE ESTERASE,URINE NEGATIVE (NEGATIVE); NITRITE,URINE NEGATIVE (NEGATIVE); OCCULT BLOOD,URINE NEGATIVE (NEGATIVE); PROTEIN,URINE TRACE mg/dL (NEGATIVE); UROBILINOGEN,URINE 0.2 EU/dL (<2.0)
[2022-11-28 18:55] LABS: AMPHETAMINES SCREEN, URINE PRESUMPTIVE POSITIVE (CUTOFF=500); BARBITURATE SCREEN,URINE NEGATIVE (CUTOFF=200); BENZODIAZEPINES SCREEN,URINE NEGATIVE (CUTOFF=150); BUPRENORPHINE SCREEN,URINE NEGATIVE (CUTOFF=10); METHADONE SCREEN, URINE NEGATIVE (CUTOFF=200); METHAMPHETAMINES SCREEN, URINE PRESUMPTIVE POSITIVE (CUTOFF=500); OXYCODONE SCREEN,URINE NEGATIVE (CUT0FF=100); PCP SCREEN,URINE NEGATIVE (CUTOFF=25); PROPOXYPHENE SCREEN,URINE NEGATIVE (CUTOFF=300); THC SCREEN,URINE 20 NG/ML PRESUMPTIVE POSITIVE (CUTOFF=50)
[2022-11-28 18:57] LABS: BILIRUBIN,URINE MODERATE (NEGATIVE); EPITHELIAL CELLS,URINE OCCASIONAL (NONE-FEW); RBC,URINE 0-2 (0-2/HPF)
[2022-11-28 18:58] LABS: BACTERIA,URINE FEW (NEGATIVE); MUCUS,URINE MODERATE (NONE-MOD)
[2022-11-28] MEDS ORDERED: Nicotine 21 MG/24 Hr Patch TRDERM ONE (19:08)
[2022-11-28 19:17] LABS: T4 FREE 0.92 ng/dL (0.76-1.46)
[2022-11-28 20:22] VITALS: BP 131/78; PULSE 111
== END 2022-11-28 20:52 ==
LOC: MW.ED 16:48
DX: R45.851 Suicidal ideations (principal); Z88.0 Allergy status to penicillin
CPT/HCPCS: 36415; 80053; 80143; 80178; 80179; 80305; 80307; 81001; 83735; 84439; 84443; 85025; 93005; 99285; A9270